=== PATIENT | female | born 1945 | race Caucasian/White ===

== ENCOUNTER 2022-03-26 19:04 | Inpatient (IN) | payer MEDICARE, MEDICAID, SELFPAY ==
--- NOTE | ~2022-03-26 | XR_ITS ---
EXAMINATION: XR HIP, RIGHT CLINICAL INFORMATION: Severe pain. History of injury COMPARISON: None TECHNIQUE: Two views of the right hip. AP view pelvis. FINDINGS: AP pelvis: There is normal symmetric bilateral hip joints and SI joints. No fracture involving the pelvis. The soft tissues are normal. AP and frog-leg views right hip reveal no visible acute fracture, dislocation or subluxation. No bony erosive changes. The soft tissues are normal. XR/XR hip RT w [id number] IMPRESSION: Unremarkable AP pelvis and right hip.
--- NOTE | ~2022-03-26 | XR_ITS ---
EXAMINATION: XR ANKLE, RIGHT CLINICAL INFORMATION: Complaint of severe pain. History of injury. COMPARISON: None TECHNIQUE: AP, lateral, and mortise views of the right ankle. FINDINGS: There has been previous fixation of a lateral malleolus fracture with a lateral plate and fixation screws. Screws appear to be in appropriate position, there is question small amount of lucency about the most caudal of the 2 fixation screws, however this could be artifactual. There are posttraumatic degenerative changes of the osseous structures and there is soft tissue calcification at the distal tibiofibular articulation. No acute fracture is identified in the structures of the ankle are in alignment. There is a small amount of soft tissue edema overlying the lateral malleolus. XR/XR ankle RT 2V IMPRESSION: Changes relating to surgical fixation of a lateral malleolus fracture with lateral fixation plate and screws. There is questionable small amount of lucency about the 2 most distal screws, uncertain if this is artifactual. Comparison radiographs are unavailable at this time. There is mild soft tissue edema overlying the lateral malleolus and there is no acute fracture identified.
[2022-03-26 20:00] VITALS: BP 150/75; PULSE 83; RESP 18; TEMP 36.1; O2SAT 94
[2022-03-26 20:22] VITALS: BMI 30.6
[2022-03-26 20:42] LABS: Glucose, Whole Blood 153 mg/dL (60-115)
[2022-03-26 22:01] LABS: Valproate 46.5 mcg/mL (50.0-100.0)
[2022-03-26] MEDS: Apixaban 5 MG TABLET PO (22:35)
[2022-03-26] MEDS: Atorvastatin Calcium 20 MG TABLET PO (22:35)
[2022-03-26] MEDS: Docusate Sodium 100 MG CAPSULE 200 MG PO (22:36)
[2022-03-26] MEDS: risperiDONE 2 MG TABLET 4 MG PO (22:36)
[2022-03-26] MEDS: Metoprolol Tartrate 50 MG TABLET PO (22:36)
[2022-03-26] MEDS: Magnesium Hydrox/Alum Hydrox 30 ML ORAL.SUSP PO (22:52)
[2022-03-26] MEDS: Divalproex Sodium Sprinkles 125 MG CAP.DR.SPR 250 MG PO (22:52)
[2022-03-26] MEDS: Perphenazine 8 MG TABLET 16 MG PO (22:52)
[2022-03-26] MEDS: cephALEXin 500 MG CAPSULE PO (23:03)
--- NOTE | 2022-03-27 01:45 | PC.ADMIT ---
76 year old female patient admitted to [facility] unit at 1945 from [facility]. Pt. referred by N. This is the patient's first admission here. Nurse to nurse done prior to admission. Pt. is a section 12B. VS 150/75, T97, 94% on RA, 83, 18. Blood sugar 153. Pt. alert to person, birthday, current year, but confused to time, date and situation. Pt. has a history of vascular dementia, NIDDM, hypothyroidism, GERD, hypertension, and atrial fibrillation. Psychiatric history includes bipolar disorder and schizophrenia. Pt. is being treated for a UTI currently with Keflex 500mg BID. Pt. does not report SI/HI/AH/VH. The pt. resided at [facility] where she was apparently exhibiting aggressive behavior toward other residents. She was transported from the facility to the ED. The pt. is not currently demonstrating any aggression or mood lability. She was calm and cooperative, but really unable to respond appropriately to admission assessment questions nor could she sign legals due to mental status. RN called patient's brother Galileo Cam at [phone] per patient request and left a voice mail with call back number to let him know pt. is here.
[2022-03-27] MEDS: Acetaminophen 325 MG TABLET 650 MG PO (03:33)
[2022-03-27 06:00] VITALS: BP 118/69; PULSE 87; RESP 16; TEMP 36.6; O2SAT 96
[2022-03-27] MEDS: Levothyroxine Sodium 125 MCG TABLET PO (06:11)
[2022-03-27 08:09] LABS: Glucose, Whole Blood 156 mg/dL (60-115)
[2022-03-27 08:33] LABS: Alanine Aminotransferase 13 U/L (0-31); Alkaline Phosphatase 70 U/L (39-117); Anion Gap 14 (12-20); Aspartate Amino Transferase 13 U/L (5-31); Bilirubin Direct 0.2 mg/dL (0.0-0.5); Bilirubin Total 0.5 mg/dL (0.0-1.0); Blood Urea Nitrogen 18 mg/dL (9-16); Calcium 9.6 mg/dL (8.4-10.2); Carbon Dioxide 24 mmol/L (22-29); Chloride 102 mmol/L (96-108); Cholesterol 133 mg/dL; Creatinine Clr Calc Pharmacy 72.3; Estimated Glomerular Filt Rate > 60; Glucose Fasting 130 mg/dL (60-99); HDL Cholesterol 37 mg/dL; LDL Cholesterol Calculated 71 mg/dl; Magnesium 1.9 mg/dL (1.6-2.6); Potassium 4.2 mmol/L (3.3-5.1); Sodium 136 mmol/L (135-145); Total Protein 6.8 g/dL (6.5-8.0); Triglycerides 126 mg/dL
[2022-03-27 08:37] LABS: Estimated Average Glucose 154 mg/dL
[2022-03-27] MEDS: risperiDONE 2 MG TABLET 4 MG PO ×2 (08:52→21:15)
[2022-03-27] MEDS: Cholecalciferol (Vitamin D3) 10 MCG TABLET PO (08:53)
[2022-03-27] MEDS: metFORMIN HCl 500 MG TABLET PO ×2 (08:53→17:07)
[2022-03-27] MEDS: Apixaban 5 MG TABLET PO ×2 (08:53→21:15)
[2022-03-27] MEDS: dilTIAZem HCL CD 120 MG CAP.ER.DEG PO (08:53)
[2022-03-27] MEDS: Fenofibrate 160 MG TABLET PO (08:53)
[2022-03-27] MEDS: Perphenazine 8 MG TABLET PO (08:53)
[2022-03-27] MEDS: Metoprolol Tartrate 50 MG TABLET PO ×2 (08:53→21:12)
[2022-03-27] MEDS: cephALEXin 500 MG CAPSULE PO ×2 (08:54→21:14)
[2022-03-27] MEDS: Divalproex Sodium Sprinkles 125 MG CAP.DR.SPR 250 MG PO ×2 (08:54→21:12)
[2022-03-27] MEDS: Digoxin 0.125 MG TABLET PO (08:54)
[2022-03-27 08:56] LABS: Free T4 (Free Thyroxine) 0.92 ng/dL (0.71-1.85); Thyroid Stimulating Hormone 3.74 uIU/mL (0.32-4.0)
--- NOTE | 2022-03-27 13:26 | P.HPPS_ITS ---
HPI Date of Service: 03/27/22 Chief Complaint: Schizoaffective Disorder Sources of Information: patient interviewed, chart reviewed and crisis/core team assessment reviewed HPI Subjective Notes: Jovi Hooker Order (need to obtain copy) and Conditional Voluntary Narrative: Ms. Pollock is a 76 year-old woman with hx of schizoaffective disorder who was brought to [facility] from [facility] where she resides as pt presenting as increasingly more agressive towards staff and peers. Utox negative. On the unit, pt presents as dysphoric, periods of smiling, to crying and yelling. When asked about incident at SNF, pt reports she does not want to talk about it. Pt later reports as she yells at this tag writer that people there were trying to touch my breast! Pt crying reports she would not return there. She reports she wants to go to [facility]. She reports feeling anxious. She reports she does not know if she belongs here referring to feeling anxious on this unit but also reports feeling safe. She is not sure about her psychiatric medications. Pt denies SI/HI. She also denies VH/AH, but internally preoccupied. Past Psychiatric History: Inpatient: OP: Kathy De La Cruz NP Suicide attempts: none Past medication trials: perphenazine, risperidone. Medical Evaluation Reviewed: Yes CBC- wnl, CMP wnl slight elevation of BUN 19, eGFR>60 Hx of GERD, afib on eliquis, HTN, hypothyroidism, DM. [facility] Medical History (Updated 03/28/22 @ 16:13 by Neal Escobedo MD) Atrial fibrillation History of uterine fibroid Hypertension Schizoaffective disorder Type 2 diabetes mellitus Surgical History (Updated 03/28/22 @ 16:09 by Neal Escobedo MD) Hx of myomectomy Family History: unknown Social History: Lives in nursing facility. No children, not . She reports she has BA in [employer]. 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 Substance History: none Trauma History: not discussed Diagnostics Vital Signs (24Hr): Vital Signs - 24 hr 03/26/22 20:00 03/27/22 06:00 Temperature 97 F 97.9 F Pulse Rate 83 87 Respiratory Rate 18 16 Blood Pressure 150/75 H 118/69 Pulse Oximetry 94 96 Oxygen Delivery Method Room Air Room Air BMI result Body Mass Index 30.6 Labs Results: 04/01/22 09:38 04/08/22 07:45 Labs: Laboratory Results - last 48 hr 03/26/22 03/26/22 03/27/22 20:38 20:58 07:21 Sodium 136 Potassium 4.2 Chloride 102 Carbon Dioxide 24 Anion Gap 14 BUN 18 H Creatinine 0.77 Estim Creat Clear Calc 72.3 Estimated GFR > 60 POC Glucose 153 H Fasting Glucose 130 H Estimat Average Glucose Hemoglobin A1c % Calcium 9.6 Magnesium 1.9 Total Bilirubin 0.5 Direct Bilirubin 0.2 AST 13 ALT 13 Alkaline Phosphatase 70 Total Protein 6.8 Albumin 4.0 Triglycerides 126 Cholesterol 133 LDL Cholesterol, Calc 71 HDL Cholesterol 37 TSH 3.74 Free T4 0.92 Valproic Acid 46.5 L 03/27/22 03/27/22 07:21 08:03 Sodium Potassium Chloride Carbon Dioxide Anion Gap BUN Creatinine Estim Creat Clear Calc Estimated GFR POC Glucose 156 H Fasting Glucose Estimat Average Glucose 154 Hemoglobin A1c % 7.0 Calcium Magnesium Total Bilirubin Direct Bilirubin AST ALT Alkaline Phosphatase Total Protein Albumin Triglycerides Cholesterol LDL Cholesterol, Calc HDL Cholesterol TSH Free T4 Valproic Acid Meds/Allergies Meds Home Medications Medication Instructions Recorded Confirmed Type apixaban 5 mg tablet 5 mg PO BID 03/26/22 03/26/22 History atorvastatin 20 mg tablet 20 mg PO BEDTIME 03/26/22 03/26/22 History digoxin 125 mcg (0.125 mg) tablet 125 mcg PO DAILY 03/26/22 03/26/22 History diltiazem HCl 120 mg capsule,24 120 mg PO DAILY 03/26/22 03/26/22 History hr,extended release docusate sodium 100 mg capsule 200 mg PO BEDTIME 03/26/22 03/26/22 History fenofibrate nanocrystallized 145 145 mg PO DAILY 03/26/22 03/26/22 History mg tablet (Tricor) metoprolol tartrate 50 mg tablet 50 mg PO BID 03/26/22 03/26/22 History perphenazine 4 mg tablet 20 mg PO BEDTIME 03/26/22 03/26/22 History perphenazine 8 mg tablet 24 mg PO DAILY 03/26/22 03/26/22 History risperidone 2 mg tablet 6 mg PO DAILY 03/26/22 03/26/22 History risperidone 4 mg tablet 4 mg PO BEDTIME 03/26/22 03/26/22 History sennosides 8.6 mg-docusate sodium 1 tab-cap PO BEDTIME PRN 03/26/22 03/26/22 History 50 mg tablet Constipation tramadol 50 mg tablet 50 mg PO BEDTIME 03/26/22 03/26/22 History tramadol 50 mg tablet 50 mg PO Q8H PRN Pain 03/26/22 03/26/22 History Allergies Allergies Allergy/AdvReac Type Severity Reaction Status Date / Time aspirin Allergy Unknown Verified 03/26/22 20:21 ciprofloxacin [From Cipro] Allergy Gastrointestinal Verified 03/26/22 20:21 Upset ibuprofen Allergy Unknown Verified 03/26/22 20:21 Latex, Natural Rubber Allergy Hives Verified 03/26/22 20:21 NSAIDS (Non-Steroidal Allergy Unknown Verified 03/26/22 20:21 Anti-Inflamma omeprazole [From Prilosec] Allergy Unknown Verified 03/26/22 20:22 ondansetron [From Zofran] Allergy Unknown Verified 03/26/22 20:22 Penicillins Allergy Unknown Verified 03/26/22 20:21 Sulfa (Sulfonamide Allergy Gastrointestinal Verified 03/26/22 20:21 Antibiotics) Upset Mental Status Exam Mental Status Exam Narrative: Appearance: crying a times, pacing, casually groomed, poor hygiene in NAD Behavior:guarded at times psychomotor:agitation noted Speech:mumbles at times, varying rate of response, changing tones of voice and volume, spontaneous Thought process:mostly tangential, at times some loose associations Thought content:not feeling safe at senior care, feeling anxious wanting new placement Mood: anxious Affect: dysphoric/labile SI:denies HI:denies VH/AH:denies but appears internally preoccupied Delusions:paranoid delusions Insight/judgment:poor x 2. Memory/cog: alert, oriented x 3. suspect underlying cognitive impairments but not formally tested. Assessment & Plan Assessment & Plan (1) Schizoaffective disorder, bipolar type: Status: Acute Code(s): F25.0 - Schizoaffective disorder, bipolar type Plan Ms. Pollock is a 76 year-old woman with hx of schizoaffective disorder brought from [facility] to [facility] due to increase agitation, aggression towards staff there which appears to be prompted by underlying paranoia. Pt presents as dysphoric, labile, anxious. We discussed risks, benefits and alternative treatment options. More collateral information from her OP providers may be required. Pt currently on 2 antipsychotics, perphenazine and risperidone. Depakote was added while in ED- currently 250mg po TID- will check levels. Added clonazepam for anxiety. Pt has eaton- please obtain copy PLAN 1. Admit to S1, CV, 15 minutes checks for safety 2. continue current medications, clonazepam added, 3. OBtain collateral information 4. Aftercare planning. Patient educated on: diagnosis and medication risk/benefits Informed Consent: understands Reason for continued inpatient stay Substantial Risk for: harm to others and inability to function
[2022-03-27] MEDS: clonazePAM 0.5 MG TABLET PO ×2 (15:27→21:14)
[2022-03-27] MEDS: Perphenazine 8 MG TABLET 16 MG PO (21:13)
[2022-03-27] MEDS: Docusate Sodium 100 MG CAPSULE 200 MG PO (21:14)
[2022-03-27] MEDS: Atorvastatin Calcium 20 MG TABLET PO (21:15)
[2022-03-27 21:19] VITALS: BP 140/59; PULSE 88; RESP 18; TEMP 37.1; O2SAT 94
[2022-03-27] MEDS: Artificial Tears 15 ML DROPS 1 DROP EYE-BOTH (21:19)
[2022-03-27 22:00] LABS: Glucose, Whole Blood 145 mg/dL (60-115)
[2022-03-28] MEDS: Acetaminophen 325 MG TABLET 650 MG PO ×2 (02:06→20:43)
[2022-03-28] MEDS: Magnesium Hydrox/Alum Hydrox 30 ML ORAL.SUSP PO (02:06)
[2022-03-28] MEDS: Levothyroxine Sodium 125 MCG TABLET PO (06:22)
[2022-03-28 08:00] VITALS: BP 122/58; PULSE 98; RESP 16; TEMP 36.1; O2SAT 92
[2022-03-28 08:14] LABS: Ammonia 74 umol/L (13-55)
[2022-03-28] MEDS: metFORMIN HCl 500 MG TABLET PO ×2 (08:17→16:40)
[2022-03-28] MEDS: dilTIAZem HCL CD 120 MG CAP.ER.DEG PO (08:38)
[2022-03-28] MEDS: risperiDONE 2 MG TABLET 4 MG PO ×2 (08:38→20:30)
[2022-03-28] MEDS: clonazePAM 0.5 MG TABLET PO ×2 (08:39→20:28)
[2022-03-28] MEDS: Apixaban 5 MG TABLET PO ×2 (08:39→20:28)
[2022-03-28] MEDS: Metoprolol Tartrate 50 MG TABLET PO ×2 (08:40→20:29)
[2022-03-28] MEDS: cephALEXin 500 MG CAPSULE PO ×2 (08:40→20:30)
[2022-03-28] MEDS: Divalproex Sodium Sprinkles 125 MG CAP.DR.SPR 250 MG PO ×2 (08:40→20:28)
[2022-03-28] MEDS: Fenofibrate 160 MG TABLET PO (08:41)
[2022-03-28] MEDS: Digoxin 0.125 MG TABLET PO (08:41)
[2022-03-28] MEDS: Cholecalciferol (Vitamin D3) 10 MCG TABLET PO (08:41)
[2022-03-28] MEDS: Perphenazine 8 MG TABLET PO (08:41)
[2022-03-28 08:47] VITALS: PULSE 79
[2022-03-28 09:15] LABS: Valproate 36.6 mcg/mL (50.0-100.0)
[2022-03-28 10:05] LABS: Vitamin B12 530 pg/mL (200-900)
--- NOTE | 2022-03-28 14:59 | P.PNPSI_ITS ---
Subjective Subjective Date of Service: 03/28/22 Reason For Visit: Schizoaffective Disorder Subjective Notes: Conditional Voluntary Interim History: the nursing staff reported the patient has been compliant with treatment. Apparently she spent 6 days in the emergency room and he show regressive behavior. On interview the patient was sleeping pleasantly on her bed. She denies new symptoms she looks pleasantly confused and easily redirectable. We will try to gather more collateral information Mental Status Exam Mental Status Exam Patient Appearance: Appropriate Patient Orientation: Person Level of Consciousness: Awake Patient Behavior: Guarded and Passive Mood Description: Withdrawn Affect Description: Constricted and Labile Patient Cognition Impaired: Yes Ability to Follow Directions: Fair Speech Pattern: Clear Hallucinations: Auditory Delusions: Paranoid Ideation Thought Process: Illogical Thought Content: positive for [place] and positive for Poverty of Content Judgement: Fair Diagnostics Vital Signs (24Hr): Vital Signs - 24 hr 03/27/22 21:19 03/28/22 08:00 03/28/22 08:47 Temperature 98.8 F 96.9 F Pulse Rate 88 98 79 Respiratory Rate 18 16 Blood Pressure 140/59 H 122/58 L Pulse Oximetry 94 92 Oxygen Delivery Method Room Air Room Air BMI result Body Mass Index 30.6 Labs Results: 03/27/22 07:21 Labs: Laboratory Results - last 48 hr 03/26/22 03/26/22 03/27/22 20:38 20:58 07:21 Sodium 136 Potassium 4.2 Chloride 102 Carbon Dioxide 24 Anion Gap 14 BUN 18 H Creatinine 0.77 Estim Creat Clear Calc 72.3 Estimated GFR > 60 POC Glucose 153 H Fasting Glucose 130 H Estimat Average Glucose Hemoglobin A1c % Calcium 9.6 Magnesium 1.9 Total Bilirubin 0.5 Direct Bilirubin 0.2 AST 13 ALT 13 Alkaline Phosphatase 70 Ammonia Total Protein 6.8 Albumin 4.0 Triglycerides 126 Cholesterol 133 LDL Cholesterol, Calc 71 HDL Cholesterol 37 Vitamin B12 Folate TSH 3.74 Free T4 0.92 Valproic Acid 46.5 L 03/27/22 03/27/22 03/27/22 07:21 07:21 08:03 Sodium Potassium Chloride Carbon Dioxide Anion Gap BUN Creatinine Estim Creat Clear Calc Estimated GFR POC Glucose 156 H Fasting Glucose Estimat Average Glucose 154 Hemoglobin A1c % 7.0 Calcium Magnesium Total Bilirubin Direct Bilirubin AST ALT Alkaline Phosphatase Ammonia Total Protein Albumin Triglycerides Cholesterol LDL Cholesterol, Calc HDL Cholesterol Vitamin B12 530 Folate 12.0 TSH Free T4 Valproic Acid 06/12/22 06/13/22 06/13/22 21:10 07:56 07:56 Sodium Potassium Chloride Carbon Dioxide Anion Gap BUN Creatinine Estim Creat Clear Calc Estimated GFR POC Glucose 145 H Fasting Glucose Estimat Average Glucose Hemoglobin A1c % Calcium Magnesium Total Bilirubin Direct Bilirubin AST ALT Alkaline Phosphatase Ammonia 74 H Total Protein Albumin Triglycerides Cholesterol LDL Cholesterol, Calc HDL Cholesterol Vitamin B12 Folate TSH Free T4 Valproic Acid 36.6 L Medications Medications Current Medications Acetaminophen (Acetaminophen 325 Mg Tablet) 650 mg PO Q6H PRN PRN Reason: Headache/Pain Mild Scale (1-3) Last Admin: 03/28/22 02:06 Dose: 650 mg Al Hydroxide/Mg Hydroxide (Magnesium Hydrox/Alum Hydrox 30 Ml Oral.Susp) 30 ml PO Q6H PRN PRN Reason: Heartburn/Nausea Last Admin: 03/28/22 02:06 Dose: 30 ml Apixaban (Apixaban 5 Mg Tablet) 5 mg PO BID [facility] Last Admin: 03/28/22 08:39 Dose: 5 mg Artificial Tears (Artificial Tears 15 Ml Drops) 1 drop EYE-BOTH Q4H PRN PRN Reason: Dry Eyes Last Admin: 03/27/22 21:19 Dose: 1 drop Atorvastatin Calcium (Atorvastatin Calcium 20 Mg Tablet) 20 mg PO BEDTIME [facility] Last Admin: 03/27/22 21:15 Dose: 20 mg Bisacodyl (Bisacodyl 10 Mg Supp.Rect) 10 mg AR DAILY PRN PRN Reason: Constipation Bismuth Subsalicylate (Bismuth Subsalicylate 262 Mg Tablet) 524 mg PO QID PRN PRN Reason: Indigestion Cephalexin HCl (Cephalexin 500 Mg Capsule) 500 mg PO Q12H [facility] Last Admin: 03/28/22 08:40 Dose: 500 mg Clonazepam (Clonazepam 0.5 Mg Tablet) 0.5 mg PO BID [facility] Last Admin: 03/28/22 08:39 Dose: 0.5 mg Digoxin (Digoxin 0.125 Mg Tablet) 0.125 mg PO DAILY [facility] Last Admin: 03/28/22 08:41 Dose: 0.125 mg Diltiazem HCl (Diltiazem Hcl Cd 120 Mg Cap.Er.Deg) 120 mg PO DAILY [facility]; Protocol Last Admin: 03/28/22 08:38 Dose: 120 mg Divalproex Sodium (Divalproex Sodium Sprinkles 125 Mg ) 250 mg PO BID [facility] Last Admin: 03/28/22 08:40 Dose: 250 mg Docusate Sodium (Docusate Sodium 100 Mg Capsule) 200 mg PO BEDTIME [facility] Last Admin: 03/27/22 21:14 Dose: 200 mg Fenofibrate (Fenofibrate 160 Mg Tablet) 160 mg PO DAILY [facility] Last Admin: 03/28/22 08:41 Dose: 160 mg Levothyroxine Sodium (Levothyroxine Sodium 125 Mcg Tablet) 125 mcg PO DAILY@0600 [facility] Last Admin: 03/28/22 06:22 Dose: 125 mcg Magnesium Hydroxide (Milk Of Magnesia 30 Ml Oral.Susp) 30 ml PO DAILY PRN PRN Reason: Constipation Metformin HCl (Metformin Hcl 500 Mg Tablet) 500 mg PO BIDWM [facility] Last Admin: 03/28/22 08:17 Dose: 500 mg Metoprolol Tartrate (Metoprolol Tartrate 50 Mg Tablet) 50 mg PO BID [facility]; Protocol Last Admin: 03/28/22 08:40 Dose: 50 mg Perphenazine (Perphenazine 8 Mg Tablet) 8 mg PO DAILY [facility] Last Admin: 03/28/22 08:41 Dose: 8 mg Perphenazine (Perphenazine 8 Mg Tablet) 16 mg PO BEDTIME [facility] Last Admin: 03/27/22 21:13 Dose: 16 mg Risperidone (Risperidone 2 Mg Tablet) 4 mg PO BID [facility] Last Admin: 03/28/22 08:38 Dose: 4 mg Senna/Docusate Sodium (Sennosides/Docusate Sodium Tablet) 1 tab PO BEDTIME PRN PRN Reason: Constipation Trazodone HCl (Trazodone Hcl 50 Mg Tablet) 50 mg PO BEDTIME PRN PRN Reason: Insomnia Vitamin D (Cholecalciferol (Vitamin D3) 10 Mcg Tablet) 10 mcg PO DAILY [facility] Last Admin: 03/28/22 08:41 Dose: 10 mcg Allergies Allergies Allergy/AdvReac Type Severity Reaction Status Date / Time aspirin Allergy Unknown Verified 03/26/22 20:21 ciprofloxacin [From Cipro] Allergy Gastrointestinal Verified 03/26/22 20:21 Upset ibuprofen Allergy Unknown Verified 03/26/22 20:21 Latex, Natural Rubber Allergy Hives Verified 03/26/22 20:21 NSAIDS (Non-Steroidal Allergy Unknown Verified 03/26/22 20:21 Anti-Inflamma omeprazole [From Prilosec] Allergy Unknown Verified 03/26/22 20:22 ondansetron [From Zofran] Allergy Unknown Verified 03/26/22 20:22 Penicillins Allergy Unknown Verified 03/26/22 20:21 Sulfa (Sulfonamide Allergy Gastrointestinal Verified 03/26/22 20:21 Antibiotics) Upset Assessment & Plan Assessment & Plan (1) Schizoaffective disorder, bipolar type: Status: Acute Code(s): F25.0 - Schizoaffective disorder, bipolar type Plan Ms. Pollock is a 76 year-old woman with hx of schizoaffective disorder [facility] due to increase agitation, aggression towards staff there which appears to be prompted by underlying paranoia. Pt presents as dysphoric, labile, anxious. We discussed risks, benefits and alternative treatment options. More collateral information from her OP providers may be required. Pt currently on 2 antipsychotics, perphenazine and risperidone. Depakote was added while in ED- currently 250mg po TID- will check levels. Added clonazepam for anxiety. Pt has eaton- please obtain copy PLAN 1. Admit to S1, CV, 15 minutes checks for safety 2. continue current medications, clonazepam added, 3. OBtain collateral information 4. Aftercare planning. I spent __20____ minutes with the patient and/or on the patient floor today, gr eater than?50% of which was spent counseling/coordinating care. Reason for contiued inpatient stay Substantial Risk for: inability to function, rapid decompensation and med/psych decompensation
--- NOTE | 2022-03-28 16:08 | P.CNHOSGPS_ITS ---
History of Present Illness Data of Consult Service Date: 03/28/22 Requesting physician: [facility] Psychiatry Primary Care Provider: Nonstaff Physician HPI Reason for consult: medical H+P 84yo F transferred from [facility] in [place] to [facility] Geriatric Psychiatry. Inpatient hospitalization due to behavioral issues. She is a long- term resident of a memory care unit at a SNF. Medical history significant for AF for which she takes apixaban, digoxin, metoprolol, and diltiazem; HLD, for w hich she takes atorvastatin and fenofibrate; and DM2 not on medications, with A1c of 7. She currently denies fever, chills, dyspnea, cough, chest pain, palpitations, dizziness, or abdominal pain. Review of Systems Review of Systems: Yes all other systems are reviewed and are negative [facility] Medical History (Updated 03/28/22 @ 16:13 by Neal Escobedo MD) Atrial fibrillation History of uterine fibroid Hypertension Schizoaffective disorder Type 2 diabetes mellitus Family History (Updated 03/28/22 @ 16:10 by Neal Escobedo MD) Father Heart attack Surgical History (Updated 03/28/22 @ 16:09 by Neal Escobedo MD) Hx of myomectomy Social History Household Members: Other Household Members Other:: Pt. lives in a retirement. Housing: Residential Do you presently have visiting nurse or other home services: No Unable to assess alcohol history related to: Unknown Patient Tobacco Use Status: Tobacco use Unknown Use of substances other than those prescribed or required for medical reasons: Unknown Currently Displaying Signs/Symptoms of Drug Intoxication Withdrawal: No Spiritual Healthcare Practices: No Cheondoism Healthcare Practices: No Cultural Healthcare Practices: No Advance Directives: No Advance Directives Information Provided: No (declined) Advance Directives on File: No Do you have thoughts of harming others: None Do you have a plan to hurt others: No Plan Recently lost weight without trying: No How much weight loss: Not applicable Nutrition Risks: Dental problems Patient : No : No Poor oral hygiene: No service: No Sexual orientation: Straight/Heterosexual Meds Allergies Allergy/AdvReac Type Severity Reaction Status Date / Time aspirin Allergy Unknown Verified 03/26/22 20:21 ciprofloxacin [From Cipro] Allergy Gastrointestinal Verified 03/26/22 20:21 Upset ibuprofen Allergy Unknown Verified 03/26/22 20:21 Latex, Natural Rubber Allergy Hives Verified 03/26/22 20:21 NSAIDS (Non-Steroidal Allergy Unknown Verified 03/26/22 20:21 Anti-Inflamma omeprazole [From Prilosec] Allergy Unknown Verified 03/26/22 20:22 ondansetron [From Zofran] Allergy Unknown Verified 03/26/22 20:22 Penicillins Allergy Unknown Verified 03/26/22 20:21 Sulfa (Sulfonamide Allergy Gastrointestinal Verified 03/26/22 20:21 Antibiotics) Upset Active Medications: Current Medications Acetaminophen (Acetaminophen 325 Mg Tablet) 650 mg PO Q6H PRN PRN Reason: Headache/Pain Mild Scale (1-3) Last Admin: 03/28/22 02:06 Dose: 650 mg Al Hydroxide/Mg Hydroxide (Magnesium Hydrox/Alum Hydrox 30 Ml Oral.Susp) 30 ml PO Q6H PRN PRN Reason: Heartburn/Nausea Last Admin: 03/28/22 02:06 Dose: 30 ml Apixaban (Apixaban 5 Mg Tablet) 5 mg PO BID [facility] Last Admin: 03/28/22 08:39 Dose: 5 mg Artificial Tears (Artificial Tears 15 Ml Drops) 1 drop EYE-BOTH Q4H PRN PRN Reason: Dry Eyes Last Admin: 03/27/22 21:19 Dose: 1 drop Atorvastatin Calcium (Atorvastatin Calcium 20 Mg Tablet) 20 mg PO BEDTIME [facility] Last Admin: 03/27/22 21:15 Dose: 20 mg Bisacodyl (Bisacodyl 10 Mg Supp.Rect) 10 mg [place] DAILY PRN PRN Reason: Constipation Bismuth Subsalicylate (Bismuth Subsalicylate 262 Mg Tablet) 524 mg PO QID PRN PRN Reason: Indigestion Cephalexin HCl (Cephalexin 500 Mg Capsule) 500 mg PO Q12H [facility] Last Admin: 03/28/22 08:40 Dose: 500 mg Clonazepam (Clonazepam 0.5 Mg Tablet) 0.5 mg PO BID [facility] Last Admin: 03/28/22 08:39 Dose: 0.5 mg Digoxin (Digoxin 0.125 Mg Tablet) 0.125 mg PO DAILY [facility] Last Admin: 03/28/22 08:41 Dose: 0.125 mg Diltiazem HCl (Diltiazem Hcl Cd 120 Mg Cap.Er.Deg) 120 mg PO DAILY [facility]; Protocol Last Admin: 03/28/22 08:38 Dose: 120 mg Divalproex Sodium (Divalproex Sodium Sprinkles 125 Mg ) 250 mg PO BID [facility] Last Admin: 03/28/22 08:40 Dose: 250 mg Docusate Sodium (Docusate Sodium 100 Mg Capsule) 200 mg PO BEDTIME [facility] Last Admin: 03/27/22 21:14 Dose: 200 mg Fenofibrate (Fenofibrate 160 Mg Tablet) 160 mg PO DAILY [facility] Last Admin: 03/28/22 08:41 Dose: 160 mg Levothyroxine Sodium (Levothyroxine Sodium 125 Mcg Tablet) 125 mcg PO DAILY@0600 [facility] Last Admin: 03/28/22 06:22 Dose: 125 mcg Magnesium Hydroxide (Milk Of Magnesia 30 Ml Oral.Susp) 30 ml PO DAILY PRN PRN Reason: Constipation Metformin HCl (Metformin Hcl 500 Mg Tablet) 500 mg PO BIDWM [facility] Last Admin: 03/28/22 08:17 Dose: 500 mg Metoprolol Tartrate (Metoprolol Tartrate 50 Mg Tablet) 50 mg PO BID [facility]; Protocol Last Admin: 03/28/22 08:40 Dose: 50 mg Perphenazine (Perphenazine 8 Mg Tablet) 8 mg PO DAILY [facility] Last Admin: 03/28/22 08:41 Dose: 8 mg Perphenazine (Perphenazine 8 Mg Tablet) 16 mg PO BEDTIME [facility] Last Admin: 03/27/22 21:13 Dose: 16 mg Risperidone (Risperidone 2 Mg Tablet) 4 mg PO BID [facility] Last Admin: 03/28/22 08:38 Dose: 4 mg Senna/Docusate Sodium (Sennosides/Docusate Sodium Tablet) 1 tab PO BEDTIME PRN PRN Reason: Constipation Trazodone HCl (Trazodone Hcl 50 Mg Tablet) 50 mg PO BEDTIME PRN PRN Reason: Insomnia Vitamin D (Cholecalciferol (Vitamin D3) 10 Mcg Tablet) 10 mcg PO DAILY [facility] Last Admin: 03/28/22 08:41 Dose: 10 mcg Home Medications Medication Instructions Recorded Confirmed Last Taken Type apixaban 5 mg tablet 5 mg PO BID 03/26/22 03/26/22 Unknown History atorvastatin 20 mg tablet 20 mg PO BEDTIME 03/26/22 03/26/22 Unknown History digoxin 125 mcg (0.125 mg) tablet 125 mcg PO DAILY 03/26/22 03/26/22 Unknown History diltiazem HCl 120 mg capsule,24 120 mg PO DAILY 03/26/22 03/26/22 Unknown History hr,extended release docusate sodium 100 mg capsule 200 mg PO BEDTIME 03/26/22 03/26/22 Unknown History fenofibrate nanocrystallized 145 145 mg PO DAILY 03/26/22 03/26/22 Unknown History mg tablet (Tricor) metoprolol tartrate 50 mg tablet 50 mg PO BID 03/26/22 03/26/22 Unknown History perphenazine 4 mg tablet 20 mg PO BEDTIME 03/26/22 03/26/22 Unknown History perphenazine 8 mg tablet 24 mg PO DAILY 03/26/22 03/26/22 Unknown History risperidone 2 mg tablet 6 mg PO DAILY 03/26/22 03/26/22 Unknown History risperidone 4 mg tablet 4 mg PO BEDTIME 03/26/22 03/26/22 Unknown History sennosides 8.6 mg-docusate sodium 1 tab-cap PO BEDTIME PRN 03/26/22 03/26/22 Unknown History 50 mg tablet Constipation tramadol 50 mg tablet 50 mg PO BEDTIME 03/26/22 03/26/22 Unknown History tramadol 50 mg tablet 50 mg PO Q8H PRN Pain 03/26/22 03/26/22 Unknown History Results Labs CBC and Chem 7: 03/27/22 07:21 Labs: Laboratory Results - last 24 hr 03/27/22 03/27/22 03/28/22 07:21 21:10 07:56 POC Glucose 145 H Ammonia Vitamin B12 530 Folate 12.0 Valproic Acid 36.6 L 03/28/22 07:56 POC Glucose Ammonia 74 H Vitamin B12 Folate Valproic Acid Assessment and Plan (1) Schizoaffective disorder, bipolar type: Status: Acute (2) Atrial fibrillation: Status: Acute Plan 84yo F transferred to geriatric psychiatry unit from outside hospital; long-term SNF resident in memory care unit; admitted due to behavioral issues; hospitalist consult for medical H+P. # AF - continue apixaban for AC - continue digoxin, metoprolol + diltiazem for rate control # HLD - continue statin + fenofibrate # DM2 - diet-controlled, A1c 7 # mood disorder - perphenazine + valproate + risperidone + clonazepam as per psychiatry team # VTE ppx - on apixaban Thank you for this consultation. We are signing off the case at this time. Please communicate with us if any new medical questions arise. Physical Exam Vital Signs: Last Vital Signs Temp 96.9 F 03/28/22 08:00 Pulse 79 03/28/22 08:47 Resp 16 03/28/22 08:00 BP 122/58 L 03/28/22 08:00 Pulse Ox 92 03/28/22 08:00 O2 Del Method 03/28/22 08:00 BMI result Body Mass Index 30.6 Gen: in no acute distress HEENT: sclera anicteric, moist mucus membranes Neck: supple Lungs: clear to auscultation bilaterally Heart: regular rate and rhythm, no murmurs Abd: soft, non-tender, non-distended Ext: no edema Skin: warm/well-perfused Neuro: alert and oriented to self/place/year/month but not date Psych: restricted affect Neuro Cranial nerves: Yes CN's II-XII intact bilaterally
[2022-03-28 16:46] LABS: Glucose, Whole Blood 113 mg/dL (60-115)
[2022-03-28 18:00] VITALS: BP 128/62; PULSE 89; RESP 17; TEMP 36.1; O2SAT 92
[2022-03-28] MEDS: Atorvastatin Calcium 20 MG TABLET PO (20:28)
[2022-03-28] MEDS: Docusate Sodium 100 MG CAPSULE 200 MG PO (20:29)
[2022-03-28] MEDS: Perphenazine 8 MG TABLET 16 MG PO (20:29)
[2022-03-28 21:24] LABS: Glucose, Whole Blood 136 mg/dL (60-115)
[2022-03-29] MEDS: traZODone HCL 50 MG TABLET PO (01:49)
[2022-03-29] MEDS: Acetaminophen 325 MG TABLET 650 MG PO ×2 (04:14→11:14)
[2022-03-29] MEDS: Levothyroxine Sodium 125 MCG TABLET PO (05:30)
[2022-03-29 07:40] VITALS: BP 106/53; PULSE 80; RESP 17; TEMP 36.4; O2SAT 93
[2022-03-29 07:42] LABS: Glucose, Whole Blood 134 mg/dL (60-115)
[2022-03-29] MEDS: metFORMIN HCl 500 MG TABLET PO ×2 (08:04→16:21)
[2022-03-29] MEDS: Apixaban 5 MG TABLET PO ×2 (08:04→21:27)
[2022-03-29] MEDS: Metoprolol Tartrate 50 MG TABLET PO ×2 (08:05→21:27)
[2022-03-29] MEDS: Divalproex Sodium Sprinkles 125 MG CAP.DR.SPR 250 MG PO ×2 (08:05→21:27)
[2022-03-29] MEDS: Cholecalciferol (Vitamin D3) 10 MCG TABLET PO (08:06)
[2022-03-29] MEDS: clonazePAM 0.5 MG TABLET PO ×2 (08:06→21:27)
[2022-03-29] MEDS: Fenofibrate 160 MG TABLET PO (08:06)
[2022-03-29] MEDS: Perphenazine 8 MG TABLET PO (08:07)
[2022-03-29] MEDS: dilTIAZem HCL CD 120 MG CAP.ER.DEG PO (08:07)
[2022-03-29] MEDS: Digoxin 0.125 MG TABLET PO (08:08)
[2022-03-29] MEDS: cephALEXin 500 MG CAPSULE PO ×2 (08:08→21:27)
[2022-03-29] MEDS: risperiDONE 2 MG TABLET 4 MG PO ×2 (08:11→21:27)
[2022-03-29 08:16] VITALS: PULSE 91
--- NOTE | 2022-03-29 11:20 | PC.NURSE ---
Pt questioned re: smoking hx and states she has not smoked in 20 years. No need for nicotine replacement.
--- NOTE | 2022-03-29 16:02 | P.PNPSI_ITS ---
Subjective Subjective Date of Service: 03/29/22 Reason For Visit: Schizoaffective Disorder Subjective Notes: Conditional Voluntary Interim History: the patient slept poorly last night on and off. The staff has noticed that she has lab in mode with episodes of crying and also she complain of back pain. She had an ammonia level that was slightly high. On interview the patient denies new symptoms she signed her conditional voluntary admission. Mental Status Exam Mental Status Exam Patient Appearance: Appropriate Patient Orientation: Person Level of Consciousness: Awake Patient Behavior: Passive Mood Description: Labile Affect Description: Constricted Patient Cognition Impaired: Yes Ability to Follow Directions: Fair Speech Pattern: Clear Hallucinations: None Delusions: Paranoid Ideation Thought Process: Illogical and Distracted Thought Content: positive for [place] of Content Judgement: Poor Diagnostics Vital Signs (24Hr): Vital Signs - 24 hr 03/28/22 18:00 03/29/22 08:16 03/29/22 07:40 Temperature 97 F 97.6 F Pulse Rate 89 91 80 Respiratory Rate 17 17 Blood Pressure 128/62 106/53 L Pulse Oximetry 92 93 Oxygen Delivery Method Room Air Room Air BMI result Body Mass Index 30.6 Labs Results: 03/27/22 07:21 Labs: Laboratory Results - last 48 hr 03/27/22 03/27/22 03/28/22 07:21 21:10 07:42 POC Glucose 145 H 113 Ammonia Vitamin B12 530 Folate 12.0 Valproic Acid 03/28/22 03/28/22 03/28/22 07:56 07:56 21:09 POC Glucose 136 H Ammonia 74 H Vitamin B12 Folate Valproic Acid 36.6 L 03/29/22 07:34 POC Glucose 134 H Ammonia Vitamin B12 Folate Valproic Acid Medications Medications Current Medications Acetaminophen (Acetaminophen 325 Mg Tablet) 650 mg PO Q6H PRN PRN Reason: Headache/Pain Mild Scale (1-3) Last Admin: 03/29/22 11:14 Dose: 650 mg Al Hydroxide/Mg Hydroxide (Magnesium Hydrox/Alum Hydrox 30 Ml Oral.Susp) 30 ml PO Q6H PRN PRN Reason: Heartburn/Nausea Last Admin: 03/28/22 02:06 Dose: 30 ml Apixaban (Apixaban 5 Mg Tablet) 5 mg PO BID [facility] Last Admin: 03/29/22 08:04 Dose: 5 mg Artificial Tears (Artificial Tears 15 Ml Drops) 1 drop EYE-BOTH Q4H PRN PRN Reason: Dry Eyes Last Admin: 03/27/22 21:19 Dose: 1 drop Atorvastatin Calcium (Atorvastatin Calcium 20 Mg Tablet) 20 mg PO BEDTIME [facility] Last Admin: 03/28/22 20:28 Dose: 20 mg Bisacodyl (Bisacodyl 10 Mg Supp.Rect) 10 mg [place] DAILY PRN PRN Reason: Constipation Bismuth Subsalicylate (Bismuth Subsalicylate 262 Mg Tablet) 524 mg PO QID PRN PRN Reason: Indigestion Cephalexin HCl (Cephalexin 500 Mg Capsule) 500 mg PO Q12H [facility] Last Admin: 03/29/22 08:08 Dose: 500 mg Clonazepam (Clonazepam 0.5 Mg Tablet) 0.5 mg PO BID [facility] Last Admin: 03/29/22 08:06 Dose: 0.5 mg Digoxin (Digoxin 0.125 Mg Tablet) 0.125 mg PO DAILY [facility] Last Admin: 03/29/22 08:08 Dose: 0.125 mg Diltiazem HCl (Diltiazem Hcl Cd 120 Mg Cap.Er.Deg) 120 mg PO DAILY [facility]; Protocol Last Admin: 03/29/22 08:07 Dose: 120 mg Docusate Sodium (Docusate Sodium 100 Mg Capsule) 200 mg PO BEDTIME [facility] Last Admin: 03/28/22 20:29 Dose: 200 mg Fenofibrate (Fenofibrate 160 Mg Tablet) 160 mg PO DAILY [facility] Last Admin: 03/29/22 08:06 Dose: 160 mg Levothyroxine Sodium (Levothyroxine Sodium 125 Mcg Tablet) 125 mcg PO DAILY@0 600 [facility] Last Admin: 03/29/22 05:30 Dose: 125 mcg Magnesium Hydroxide (Milk Of Magnesia 30 Ml Oral.Susp) 30 ml PO DAILY PRN PRN Reason: Constipation Metformin HCl (Metformin Hcl 500 Mg Tablet) 500 mg PO BIDWM [facility] Last Admin: 03/29/22 08:04 Dose: 500 mg Metoprolol Tartrate (Metoprolol Tartrate 50 Mg Tablet) 50 mg PO BID [facility]; Protocol Last Admin: 03/29/22 08:05 Dose: 50 mg Nystatin (Nystatin Powder 15 Gm Bottle) 1 appl TOPICAL BID [facility]; Protocol Perphenazine (Perphenazine 8 Mg Tablet) 8 mg PO DAILY [facility] Last Admin: 03/29/22 08:07 Dose: 8 mg Perphenazine (Perphenazine 8 Mg Tablet) 16 mg PO BEDTIME [facility] Last Admin: 03/28/22 20:29 Dose: 16 mg Risperidone (Risperidone 2 Mg Tablet) 4 mg PO BID [facility] Last Admin: 03/29/22 08:11 Dose: 4 mg Senna/Docusate Sodium (Sennosides/Docusate Sodium Tablet) 1 tab PO BEDTIME PRN PRN Reason: Constipation Trazodone HCl (Trazodone Hcl 50 Mg Tablet) 50 mg PO BEDTIME PRN PRN Reason: Insomnia Last Admin: 03/29/22 01:49 Dose: 50 mg Vitamin D (Cholecalciferol (Vitamin D3) 10 Mcg Tablet) 10 mcg PO DAILY [facility] Last Admin: 03/29/22 08:06 Dose: 10 mcg Allergies Allergies Allergy/AdvReac Type Severity Reaction Status Date / Time aspirin Allergy Unknown Verified 03/26/22 20:21 ciprofloxacin [From Cipro] Allergy Gastrointestinal Verified 03/26/22 20:21 Upset ibuprofen Allergy Unknown Verified 03/26/22 20:21 Latex, Natural Rubber Allergy Hives Verified 03/26/22 20:21 NSAIDS (Non-Steroidal Allergy Unknown Verified 03/26/22 20:21 Anti-Inflamma omeprazole [From Prilosec] Allergy Unknown Verified 03/26/22 20:22 ondansetron [From Zofran] Allergy Unknown Verified 03/26/22 20:22 Penicillins Allergy Unknown Verified 03/26/22 20:21 Sulfa (Sulfonamide Allergy Gastrointestinal Verified 03/26/22 20:21 Antibiotics) Upset Assessment & Plan Assessment & Plan (1) Schizoaffective disorder, bipolar type: Status: Acute Code(s): F25.0 - Schizoaffective disorder, bipolar type Plan Ms. Pollock is a 76 year-old woman with hx of schizoaffective disorder brought [facility] due to increase agitation, aggression towards staff there which appears to be prompted by underlying paranoia. Pt presents as dysphoric, labile, anxious. We discussed risks, benefits and alternative treatment options. More collateral information from her OP providers may be required. Pt currently on 2 antipsychotics, perphenazine and risperidone. Depakote was added while in ED- currently 250mg po TID- will check levels. Added clonazepam for anxiety. Pt has eaton- please obtain copy PLAN 1. Admit to S1, CV, 15 minutes checks for safety 2. continue current medications, clonazepam added, 3. OBtain collateral information 4. Aftercare planning. I spent __20____ minutes with the patient and/or on the patient floor today, greater than?50% of which was spent counseling/coordinating care. Reason for contiued inpatient stay Substantial Risk for: inability to function, rapid decompensation and med/psych decompensation
[2022-03-29 21:05] VITALS: BP 146/77; PULSE 98; RESP 16; TEMP 36; O2SAT 94
[2022-03-29] MEDS: Atorvastatin Calcium 20 MG TABLET PO (21:27)
[2022-03-29] MEDS: Perphenazine 8 MG TABLET 16 MG PO (21:27)
[2022-03-29] MEDS: Docusate Sodium 100 MG CAPSULE 200 MG PO (21:27)
[2022-03-29 21:44] LABS: Glucose, Whole Blood 111 mg/dL (60-115)
[2022-03-30] MEDS: Levothyroxine Sodium 125 MCG TABLET PO (06:48)
[2022-03-30 08:40] VITALS: BP 125/61; PULSE 85; RESP 17; TEMP 35.9; O2SAT 95
[2022-03-30] MEDS: Cholecalciferol (Vitamin D3) 10 MCG TABLET PO (09:22)
[2022-03-30] MEDS: dilTIAZem HCL CD 120 MG CAP.ER.DEG PO (09:22)
[2022-03-30] MEDS: risperiDONE 2 MG TABLET 4 MG PO ×2 (09:22→21:44)
[2022-03-30] MEDS: clonazePAM 0.5 MG TABLET PO ×2 (09:22→21:44)
[2022-03-30] MEDS: Apixaban 5 MG TABLET PO ×2 (09:22→21:44)
[2022-03-30] MEDS: Divalproex Sodium Sprinkles 125 MG CAP.DR.SPR 250 MG PO ×3 (09:22→21:44)
[2022-03-30] MEDS: cephALEXin 500 MG CAPSULE PO ×2 (09:23→21:44)
[2022-03-30] MEDS: Digoxin 0.125 MG TABLET PO (09:23)
[2022-03-30] MEDS: Perphenazine 8 MG TABLET PO (09:23)
[2022-03-30] MEDS: Metoprolol Tartrate 50 MG TABLET PO ×2 (09:23→21:44)
[2022-03-30] MEDS: metFORMIN HCl 500 MG TABLET PO ×2 (09:23→17:08)
[2022-03-30] MEDS: Fenofibrate 160 MG TABLET PO (09:23)
[2022-03-30] MEDS: Nystatin Powder 15 GM BOTTLE 1 APPL TOPICAL (09:37)
[2022-03-30 09:39] LABS: Glucose, Whole Blood 96 mg/dL (60-115)
--- NOTE | 2022-03-30 16:44 | HO.PSYCHPN ---
Subjective Subjective Date of Service: 03/30/22 Reason For Visit: Schizoaffective Disorder Subjective Notes: Conditional Voluntary Interim History: The nursing staff reported the patient signs her CV. She has seen crying when her needs are not met. Very labile but easily redirectable On interview the patient denies new symptoms she was tearful but she stop crying right away when I engage in conversation. We discussed with the patient that her Depakote level was low that is why we will recheck his blood work on Monday morning. Mental Status Exam Mental Status Exam Patient Appearance: Well Grooomed Patient Orientation: Person Level of Consciousness: Awake Patient Behavior: Cooperative and Passive Mood Description: Labile Affect Description: Constricted Patient Cognition Impaired: Yes Ability to Follow Directions: Fair Speech Pattern: Clear Hallucinations: Auditory Delusions: Paranoid Ideation Thought Process: Distracted and Evasive Thought Content: positive for [place] and positive for Circumstantial Judgement: Fair Diagnostics Vital Signs (24Hr): Vital Signs - 24 hr 03/29/22 21:05 03/30/22 08:40 Temperature 96.8 F 96.6 F L Pulse Rate 98 85 Respiratory Rate 16 17 Blood Pressure 146/77 H 125/61 Pulse Oximetry 94 95 Oxygen Delivery Method Room Air Room Air BMI result Body Mass Index 30.6 Labs Results: 03/27/22 07:21 Labs: Laboratory Results - last 48 hr 03/28/22 03/28/22 03/29/22 07:42 21:09 07:34 POC Glucose 113 136 H 134 H 03/29/22 03/30/22 21:23 09:29 POC Glucose 111 96 Medications Medications Current Medications Acetaminophen (Acetaminophen 325 Mg Tablet) 650 mg PO Q6H PRN PRN Reason: Headache/Pain Mild Scale (1-3) Last Admin: 03/29/22 11:14 Dose: 650 mg Al Hydroxide/Mg Hydroxide (Magnesium Hydrox/Alum Hydrox 30 Ml Oral.Susp) 30 ml PO Q6H PRN PRN Reason: Heartburn/Nausea Last Admin: 03/28/22 02:06 Dose: 30 ml Apixaban (Apixaban 5 Mg Tablet) 5 mg PO BID [facility] Last Admin: 03/30/22 09:22 Dose: 5 mg Artificial Tears (Artificial Tears 15 Ml Drops) 1 drop EYE-BOTH Q4H PRN PRN Reason: Dry Eyes Last Admin: 03/27/22 21:19 Dose: 1 drop Atorvastatin Calcium (Atorvastatin Calcium 20 Mg Tablet) 20 mg PO BEDTIME [facility] Last Admin: 03/29/22 21:27 Dose: 20 mg Bisacodyl (Bisacodyl 10 Mg Supp.Rect) 10 mg [place] DAILY PRN PRN Reason: Constipation Bismuth Subsalicylate (Bismuth Subsalicylate 262 Mg Tablet) 524 mg PO QID PRN PRN Reason: Indigestion Cephalexin HCl (Cephalexin 500 Mg Capsule) 500 mg PO Q12H [facility] Last Admin: 03/30/22 09:23 Dose: 500 mg Clonazepam (Clonazepam 0.5 Mg Tablet) 0.5 mg PO BID [facility] Last Admin: 03/30/22 09:22 Dose: 0.5 mg Digoxin (Digoxin 0.125 Mg Tablet) 0.125 mg PO DAILY [facility] Last Admin: 03/30/22 09:23 Dose: 0.125 mg Diltiazem HCl (Diltiazem Hcl Cd 120 Mg Cap.Er.Deg) 120 mg PO DAILY [facility]; Protocol Last Admin: 03/30/22 09:22 Dose: 120 mg Divalproex Sodium (Divalproex Sodium Sprinkles 125 Mg Cap.Dr.Spr) 250 mg PO TID [facility] Last Admin: 03/30/22 15:15 Dose: 250 mg Docusate Sodium (Docusate Sodium 100 Mg Capsule) 200 mg PO BEDTIME [facility] Last Admin: 03/29/22 21:27 Dose: 200 mg Fenofibrate (Fenofibrate 160 Mg Tablet) 160 mg PO DAILY [facility] Last Admin: 03/30/22 09:23 Dose: 160 mg Levothyroxine Sodium (Levothyroxine Sodium 125 Mcg Tablet) 125 mcg PO DAILY@0600 [facility] Last Admin: 03/30/22 06:48 Dose: 125 mcg Magnesium Hydroxide (Milk Of Magnesia 30 Ml Oral.Susp) 30 ml PO DAILY PRN PRN Reason: Constipation Metformin HCl (Metformin Hcl 500 Mg Tablet) 500 mg PO BIDWM [facility] Last Admin: 03/30/22 09:23 Dose: 500 mg Metoprolol Tartrate (Metoprolol Tartrate 50 Mg Tablet) 50 mg PO BID [facility]; Protocol Last Admin: 03/30/22 09:23 Dose: 50 mg Nystatin (Nystatin Powder 15 Gm Bottle) 1 appl TOPICAL BID [facility]; Protocol Last Admin: 03/30/22 09:37 Dose: 1 appl Perphenazine (Perphenazine 8 Mg Tablet) 8 mg PO DAILY [facility] Last Admin: 03/30/22 09:23 Dose: 8 mg Perphenazine (Perphenazine 8 Mg Tablet) 16 mg PO BEDTIME [facility] Last Admin: 03/29/22 21:27 Dose: 16 mg Risperidone (Risperidone 2 Mg Tablet) 4 mg PO BID [facility] Last Admin: 03/30/22 09:22 Dose: 4 mg Senna/Docusate Sodium (Sennosides/Docusate Sodium Tablet) 1 tab PO BEDTIME PRN PRN Reason: Constipation Trazodone HCl (Trazodone Hcl 50 Mg Tablet) 50 mg PO BEDTIME PRN PRN Reason: Insomnia Last Admin: 03/29/22 01:49 Dose: 50 mg Vitamin D (Cholecalciferol (Vitamin D3) 10 Mcg Tablet) 10 mcg PO DAILY [facility] Last Admin: 03/30/22 09:22 Dose: 10 mcg Allergies Allergies Allergy/AdvReac Type Severity Reaction Status Date / Time aspirin Allergy Unknown Verified 03/26/22 20:21 ciprofloxacin [From Cipro] Allergy Gastrointestinal Verified 03/26/22 20:21 Upset ibuprofen Allergy Unknown Verified 03/26/22 20:21 Latex, Natural Rubber Allergy Hives Verified 03/26/22 20:21 NSAIDS (Non-Steroidal Allergy Unknown Verified 03/26/22 20:21 Anti-Inflamma omeprazole [From Prilosec] Allergy Unknown Verified 03/26/22 20:22 ondansetron [From Zofran] Allergy Unknown Verified 03/26/22 20:22 Penicillins Allergy Unknown Verified 03/26/22 20:21 Sulfa (Sulfonamide Allergy Gastrointestinal Verified 03/26/22 20:21 Antibiotics) Upset Assessment & Plan Assessment & Plan (1) Schizoaffective disorder, bipolar type: Status: Acute Code(s): F25.0 - Schizoaffective disorder, bipolar type Plan Ms. Pollock is a 76 year-old woman with hx of schizoaffective disorder brought [facility] to [facility] due to increase agitation, aggression towards staff there which appears to be prompted by underlying paranoia. Pt presents as dysphoric, labile, anxious. We discussed risks, benefits and alternative treatment options. More collateral information from her OP providers may be required. Pt currently on 2 antipsychotics, perphenazine and risperidone. Depakote was added while in ED- currently 250mg po TID- will check levels. Added clonazepam for anxiety. Pt has uma- please obtain copy PLAN 1. Admit to S1, CV, 15 minutes checks for safety 2. continue current medications, clonazepam added, 3. OBtain collateral information 4. Aftercare planning. 5. Depakote level, hemoglobin A1c, basic metabolic panel, lipid profile, liver panel for Monday I spent ___20___ minutes with the patient and/or on the patient floor today, greater than?50% of which was spent counseling/coordinating care. Reason for contiued inpatient stay Substantial Risk for: inability to function, rapid decompensation and med/psych decompensation
[2022-03-30 21:24] VITALS: BP 128/68; PULSE 87; RESP 18; TEMP 36.3; O2SAT 92
[2022-03-30] MEDS: Perphenazine 8 MG TABLET 16 MG PO (21:44)
[2022-03-30] MEDS: Docusate Sodium 100 MG CAPSULE 200 MG PO (21:44)
[2022-03-30] MEDS: Atorvastatin Calcium 20 MG TABLET PO (21:45)
[2022-03-30 22:19] LABS: Glucose, Whole Blood 162 mg/dL (60-115)
[2022-03-30] MEDS: Acetaminophen 325 MG TABLET 650 MG PO (22:38)
[2022-03-31] MEDS: traZODone HCL 50 MG TABLET PO (01:01)
[2022-03-31] MEDS: Levothyroxine Sodium 125 MCG TABLET PO (06:06)
[2022-03-31] MEDS: metFORMIN HCl 500 MG TABLET PO ×2 (06:12→16:57)
[2022-03-31 06:19] VITALS: BMI 31.1
[2022-03-31 06:20] LABS: Glucose, Whole Blood 127 mg/dL (60-115)
[2022-03-31] MEDS: Divalproex Sodium Sprinkles 125 MG CAP.DR.SPR 250 MG PO ×3 (09:26→21:39)
[2022-03-31] MEDS: dilTIAZem HCL CD 120 MG CAP.ER.DEG PO (09:26)
[2022-03-31] MEDS: Perphenazine 8 MG TABLET PO (09:27)
[2022-03-31] MEDS: risperiDONE 2 MG TABLET 4 MG PO ×2 (09:27→21:41)
[2022-03-31] MEDS: Digoxin 0.125 MG TABLET PO (09:27)
[2022-03-31] MEDS: Apixaban 5 MG TABLET PO ×2 (09:27→21:39)
[2022-03-31] MEDS: Cholecalciferol (Vitamin D3) 10 MCG TABLET PO (09:27)
[2022-03-31] MEDS: cephALEXin 500 MG CAPSULE PO ×2 (09:27→21:41)
[2022-03-31] MEDS: clonazePAM 0.5 MG TABLET PO ×2 (09:27→21:39)
[2022-03-31] MEDS: Fenofibrate 160 MG TABLET PO (09:28)
[2022-03-31] MEDS: Metoprolol Tartrate 50 MG TABLET PO ×2 (09:28→21:40)
[2022-03-31 09:30] VITALS: BP 123/62; PULSE 72; RESP 16; TEMP 36.3; O2SAT 94
[2022-03-31] MEDS: Acetaminophen 325 MG TABLET 650 MG PO (15:05)
[2022-03-31 15:10] VITALS: BP 120/64; PULSE 85; RESP 16; O2SAT 94
--- NOTE | 2022-03-31 15:20 | HO.PSYCHPN ---
Subjective Subjective Date of Service: 03/31/22 Reason For Visit: Schizoaffective Disorder Subjective Notes: Conditional Voluntary Interim History: the nursing staff reported the patient has been on her room most of the time, internally preoccupied mostly in his bed. Very labral and tearful at times but easily redirectable. The social work msw reported that she tried to contact her cartons but so far they have not contact the unit. On interview the patient denies new symptoms she denies over-sedation but she has being seen mostly on her bed all day long. Minimal participation in groups. Mental Status Exam Mental Status Exam Patient Appearance: Well Grooomed Patient Orientation: Person Level of Consciousness: Awake Patient Behavior: Cooperative Mood Description: Labile Affect Description: Constricted Patient Cognition Impaired: Yes Ability to Follow Directions: Good Speech Pattern: Clear Hallucinations: Auditory Delusions: Paranoid Ideation Thought Process: Illogical Thought Content: positive for Circumstantial and positive for Poverty of Content Judgement: Fair Diagnostics Vital Signs (24Hr): Vital Signs - 24 hr 03/30/22 21:24 03/31/22 09:30 03/31/22 15:10 Temperature 97.4 F 97.4 F Pulse Rate 87 72 85 Respiratory Rate 18 16 16 Blood Pressure 128/68 123/62 120/64 Pulse Oximetry 92 94 94 Oxygen Delivery Method Room Air Room Air Room Air BMI result Body Mass Index 31.1 Labs Results: 03/27/22 07:21 Labs: Laboratory Results - last 48 hr 03/29/22 03/30/22 03/30/22 21:23 09:29 21:43 POC Glucose 111 96 162 H 03/31/22 06:11 POC Glucose 127 H Medications Medications Current Medications Acetaminophen (Acetaminophen 325 Mg Tablet) 650 mg PO Q6H PRN PRN Reason: Headache/Pain Mild Scale (1-3) Last Admin: 03/31/22 15:05 Dose: 650 mg Al Hydroxide/Mg Hydroxide (Magnesium Hydrox/Alum Hydrox 30 Ml Oral.Susp) 30 ml PO Q6H PRN PRN Reason: Heartburn/Nausea Last Admin: 03/28/22 02:06 Dose: 30 ml Apixaban (Apixaban 5 Mg Tablet) 5 mg PO BID [facility] Last Admin: 03/31/22 09:27 Dose: 5 mg Artificial Tears (Artificial Tears 15 Ml Drops) 1 drop EYE-BOTH Q4H PRN PRN Reason: Dry Eyes Last Admin: 03/27/22 21:19 Dose: 1 drop Atorvastatin Calcium (Atorvastatin Calcium 20 Mg Tablet) 20 mg PO BEDTIME COUNT [facility]CLUDES [facility] Last Admin: 03/30/22 21:45 Dose: 20 mg Bisacodyl (Bisacodyl 10 Mg Supp.Rect) 10 mg [place] DAILY PRN PRN Reason: Constipation Bismuth Subsalicylate (Bismuth Subsalicylate 262 Mg Tablet) 524 mg PO QID PRN PRN Reason: Indigestion Cephalexin HCl (Cephalexin 500 Mg Capsule) 500 mg PO Q12H COUNT INCLUDES [facility] Last Admin: 03/31/22 09:27 Dose: 500 mg Clonazepam (Clonazepam 0.5 Mg Tablet) 0.5 mg PO BID COUNT [facility]CLUD[facility] Last Admin: 03/31/22 09:27 Dose: 0.5 mg Digoxin (Digoxin 0.125 Mg Tablet) 0.125 mg PO DAILY COUNT [facility]CLUDES [facility] Last Admin: 03/31/22 09:27 Dose: 0.125 mg Diltiazem HCl (Diltiazem Hcl Cd 120 Mg Cap.Er.Deg) 120 mg PO DAILY COUNT [facility]CLUD[facility]; Protocol Last Admin: 03/31/22 09:26 Dose: 120 mg Divalproex Sodium (Divalproex Sodium Sprinkles 125 Mg Cap.Dr.Spr) 250 mg PO TID COUNT [facility]CLUDES [facility] Last Admin: 03/31/22 15:16 Dose: 250 mg Docusate Sodium (Docusate Sodium 100 Mg Capsule) 200 mg PO BEDTIME COUNT [facility]CLUDES [facility] Last Admin: 03/30/22 21:44 Dose: 200 mg Fenofibrate (Fenofibrate 160 Mg Tablet) 160 mg PO DAILY COUNT [facility]CLUDES [facility] Last Admin: 03/31/22 09:28 Dose: 160 mg Levothyroxine Sodium (Levothyroxine Sodium 125 Mcg Tablet) 125 mcg PO DAILY@0600 [facility]CLUD[facility] Last Admin: 03/31/22 06:06 Dose: 125 mcg Magnesium Hydroxide (Milk Of Magnesia 30 Ml Oral.Susp) 30 ml PO DAILY PRN PRN Reason: Constipation Metformin HCl (Metformin Hcl 500 Mg Tablet) 500 mg PO BIDWM COUNT INCLUDES [facility] Last Admin: 03/31/22 06:12 Dose: 500 mg Metoprolol Tartrate (Metoprolol Tartrate 50 Mg Tablet) 50 mg PO BID [facility]; Protocol Last Admin: 03/31/22 09:28 Dose: 50 mg Nystatin (Nystatin Powder 15 Gm Bottle) 1 appl TOPICAL BID COUNT [facility]CLUDES [facility]; Protocol Last Admin: 03/31/22 12:56 Dose: Not Given Perphenazine (Perphenazine 8 Mg Tablet) 8 mg PO DAILY COUNT [facility]CLUD[facility] Last Admin: 03/31/22 09:27 Dose: 8 mg Perphenazine (Perphenazine 8 Mg Tablet) 16 mg PO BEDTIME COUNT [facility]CLUDES [facility] Last Admin: 03/30/22 21:44 Dose: 16 mg Risperidone (Risperidone 2 Mg Tablet) 4 mg PO BID COUNT [facility]CLUD[facility] Last Admin: 03/31/22 09:27 Dose: 4 mg Senna/Docusate Sodium (Sennosides/Docusate Sodium Tablet) 1 tab PO BEDTIME PRN PRN Reason: Constipation Trazodone HCl (Trazodone Hcl 50 Mg Tablet) 50 mg PO BEDTIME PRN PRN Reason: Insomnia Last Admin: 03/31/22 01:01 Dose: 50 mg Vitamin D (Cholecalciferol (Vitamin D3) 10 Mcg Tablet) 10 mcg PO DAILY COUNT [facility]CLUDES [facility] Last Admin: 03/31/22 09:27 Dose: 10 mcg Allergies Allergies Allergy/AdvReac Type Severity Reaction Status Date / Time aspirin Allergy Unknown Verified 03/26/22 20:21 ciprofloxacin [From Cipro] Allergy Gastrointestinal Verified 03/26/22 20:21 Upset ibuprofen Allergy Unknown Verified 03/26/22 20:21 Latex, Natural Rubber Allergy Hives Verified 03/26/22 20:21 NSAIDS (Non-Steroidal Allergy Unknown Verified 03/26/22 20:21 Anti-Inflamma omeprazole [From Prilosec] Allergy Unknown Verified 03/26/22 20:22 ondansetron [From Zofran] Allergy Unknown Verified 03/26/22 20:22 Penicillins Allergy Unknown Verified 03/26/22 20:21 Sulfa (Sulfonamide Allergy Gastrointestinal Verified 03/26/22 20:21 Antibiotics) Upset Assessment & Plan Assessment & Plan (1) Schizoaffective disorder, bipolar type: Status: Acute Code(s): F25.0 - Schizoaffective disorder, bipolar type Plan Ms. Pollock is a 76 year-old woman with hx of schizoaffective disorder [facility] due to increase agitation, aggression towards staff there which appears to be prompted by underlying paranoia. Pt presents as dysphoric, labile, anxious. We discussed risks, benefits and alternative treatment options. More collateral information from her OP providers may be required. Pt currently on 2 antipsychotics, perphenazine and risperidone. Depakote was added while in ED- currently 250mg po TID- will check levels. Added clonazepam for anxiety. Pt has uma- please obtain copy PLAN 1. Admit to S1, CV, 15 minutes checks for safety 2. continue current medications, clonazepam added, 3. OBtain collateral information 4. Aftercare planning. 5. Depakote level, hemoglobin A1c, basic metabolic panel, lipid profile, liver panel for Monday morning I spent ____20__ minutes with the patient and/or on the patient floor today, greater than?50% of which was spent counseling/coordinating care. Reason for contiued inpatient stay Substantial Risk for: inability to function, rapid decompensation and med/psych decompensation
[2022-03-31 18:00] VITALS: BP 139/67; PULSE 84; RESP 20; TEMP 36.5; O2SAT 96
[2022-03-31] MEDS: Atorvastatin Calcium 20 MG TABLET PO (21:39)
[2022-03-31] MEDS: Docusate Sodium 100 MG CAPSULE 200 MG PO (21:40)
[2022-03-31] MEDS: Nystatin Powder 15 GM BOTTLE 1 APPL TOPICAL (21:41)
[2022-03-31] MEDS: Perphenazine 8 MG TABLET 16 MG PO (21:41)
[2022-03-31 22:11] LABS: Glucose, Whole Blood 110 mg/dL (60-115)
[2022-04-01] MEDS: Acetaminophen 325 MG TABLET 650 MG PO ×3 (01:25→22:22)
[2022-04-01] MEDS: traZODone HCL 50 MG TABLET PO ×2 (01:26→22:22)
[2022-04-01 06:00] VITALS: BP 126/60; PULSE 81; RESP 17; TEMP 36.2; O2SAT 91
[2022-04-01] MEDS: Levothyroxine Sodium 125 MCG TABLET PO (06:30)
[2022-04-01] MEDS: Fenofibrate 160 MG TABLET PO (08:40)
[2022-04-01] MEDS: metFORMIN HCl 500 MG TABLET PO (08:40)
[2022-04-01] MEDS: risperiDONE 2 MG TABLET 4 MG PO ×2 (08:40→20:23)
[2022-04-01] MEDS: Cholecalciferol (Vitamin D3) 10 MCG TABLET PO (08:41)
[2022-04-01] MEDS: Divalproex Sodium Sprinkles 125 MG CAP.DR.SPR 250 MG PO (08:41)
[2022-04-01] MEDS: cephALEXin 500 MG CAPSULE PO ×2 (08:41→20:30)
[2022-04-01] MEDS: Metoprolol Tartrate 50 MG TABLET PO ×2 (08:41→20:22)
[2022-04-01] MEDS: Digoxin 0.125 MG TABLET PO (08:41)
[2022-04-01] MEDS: Apixaban 5 MG TABLET PO ×2 (08:41→20:21)
[2022-04-01] MEDS: dilTIAZem HCL CD 120 MG CAP.ER.DEG PO (08:41)
[2022-04-01] MEDS: clonazePAM 0.5 MG TABLET PO ×2 (08:41→20:21)
[2022-04-01] MEDS: Perphenazine 8 MG TABLET PO (08:41)
[2022-04-01 10:06] LABS: MANUAL DIFF FLAG NO
[2022-04-01 10:08] LABS: Basophils Percent Auto 0.4 % (0-2); Eosinophils Absolute Auto 0.3 X10*3/uL (0.0-0.4); Eosinophils Percent Auto 3.2 % (0-4); Hematocrit 37.3 % (37.0-47.0); Hemoglobin 12.2 g/dl (12.0-16.0); Imm Gran Abs Auto 0.05 X10*3/uL (0.00-0.03); Imm Gran Pct Auto 0.5 % (0.0-0.4); Mean Corpuscular HGB Conc 32.7 g/dl (31.0-35.0); Mean Corpuscular Hemoglobin 28.9 pg (27.0-33.0); Mean Corpuscular Volume 88.4 fL (80.0-98.0); Mean Platelet Volume 11.9 fL (9.4-12.3); Monocytes Absolute Auto 0.9 X10*3/uL (0.1-1.2); Monocytes Percent Auto 9.5 % (2-11); Neutrophils Absolute Auto 5.3 x10*3/uL (2.0-8.3); Neutrophils Percent Auto 55.4 % (45-73); Platelet Count 261 X10*3/uL (160-400); Red Blood Count 4.22 X10*6/uL (4.20-5.50); Red Cell Distribution Width 13.8 % (11.0-16.0); White Blood Count 9.6 X10*3/uL (4.8-10.8)
[2022-04-01 10:19] LABS: Estimated Average Glucose 157 mg/dL; Hemoglobin A1c % 7.1 %
[2022-04-01 10:28] LABS: Alanine Aminotransferase 11 U/L (0-31); Alkaline Phosphatase 64 U/L (39-117); Anion Gap 14 (12-20); Aspartate Amino Transferase 8 U/L (5-31); Bilirubin Direct 0.2 mg/dL (0.0-0.5); Bilirubin Total 0.4 mg/dL (0.0-1.0); Blood Urea Nitrogen 17 mg/dL (9-16); Calcium 9.8 mg/dL (8.4-10.2); Carbon Dioxide 27 mmol/L (22-29); Chloride 104 mmol/L (96-108); Cholesterol 127 mg/dL; Creatinine Clr Calc Pharmacy 67.6; Estimated Glomerular Filt Rate > 60; Glucose Random 156 mg/dL (60-115); HDL Cholesterol 37 mg/dL; LDL Cholesterol Calculated 63 mg/dl; Potassium 4.2 mmol/L (3.3-5.1); Sodium 141 mmol/L (135-145); Total Protein 6.7 g/dL (6.5-8.0); Triglycerides 136 mg/dL
[2022-04-01 10:33] LABS: Valproate 34.5 mcg/mL (50.0-100.0)
[2022-04-01 10:48] LABS: Thyroid Stimulating Hormone 1.93 uIU/mL (0.32-4.0)
--- NOTE | 2022-04-01 13:03 | HO.PSYCHPN ---
Subjective Subjective Date of Service: 04/01/22 Reason For Visit: Schizoaffective Disorder Subjective Notes: Conditional Voluntary Interim History: the nursing staff reported the patient has been isolative most of the time in her home. She has gone outside to ate her dinner and she is very lab I will crying easily. The nursing staff also reported that she has been fully compliant with treatment and she reported headaches with even in the improve with Tylenol and trazodone. She slept 5 hours. On interview the patient remains internally preoccupied, dysphoric mostly in her room. Mental Status Exam Mental Status Exam Patient Appearance: Appropriate Patient Orientation: Person and Situation Level of Consciousness: Awake Patient Behavior: Guarded and Cooperative Mood Description: Withdrawn Affect Description: Labile Ability to Follow Directions: Fair Speech Pattern: Clear Hallucinations: Auditory Delusions: Paranoid Ideation Thought Process: Linear Thought Content: positive for Circumstantial and positive for Poverty of Content Judgement: Fair Diagnostics Vital Signs (24Hr): Vital Signs - 24 hr 03/31/22 15:10 03/31/22 18:00 04/01/22 06:00 Temperature 97.7 F 97.1 F Pulse Rate 85 84 81 Respiratory Rate 16 20 17 Blood Pressure 120/64 139/67 126/60 Pulse Oximetry 94 96 91 L Oxygen Delivery Method Room Air Room Air Room Air BMI result Body Mass Index 31.1 Labs Results: 04/01/22 09:38 04/01/22 09:38 Labs: Laboratory Results - last 48 hr 03/30/22 03/31/22 03/31/22 21:43 06:11 21:59 WBC RBC Hgb Hct MCV MCH MCHC RDW Plt Count MPV Immature Gran % (Auto) Neut % (Auto) Lymph % (Auto) [place] % (Auto) Eos % (Auto) Baso % (Auto) Lymph # (Auto) [place] # (Auto) Eos # (Auto) Baso # (Auto) Abs Immat Gran (auto) Absolute Neuts (auto) Absolute Nucleated RBC Nucleated RBC % (auto) Sodium Potassium Chloride Carbon Dioxide Anion Gap BUN Creatinine Estim Creat Clear Calc Estimated GFR POC Glucose 162 H 127 H 110 Random Glucose Estimat Average Glucose Hemoglobin A1c % Calcium Total Bilirubin Direct Bilirubin AST ALT Alkaline Phosphatase Total Protein Albumin Triglycerides Cholesterol LDL Cholesterol, Calc HDL Cholesterol TSH Valproic Acid 04/01/22 04/01/22 04/01/22 09:38 09:38 09:38 WBC 9.6 RBC 4.22 Hgb 12.2 Hct 37.3 MCV 88.4 MCH 28.9 MCHC 32.7 RDW 13.8 Plt Count 261 MPV 11.9 Immature Gran % (Auto) 0.5 H Neut % (Auto) 55.4 Lymph % (Auto) 31.0 [place] % (Auto) 9.5 Eos % (Auto) 3.2 Baso % (Auto) 0.4 Lymph # (Auto) 3.0 [place] # (Auto) 0.9 Eos # (Auto) 0.3 Baso # (Auto) 0.0 Abs Immat Gran (auto) 0.05 H Absolute Neuts (auto) 5.3 Absolute Nucleated RBC 0.000 Nucleated RBC % (auto) 0.0 Sodium 141 Potassium 4.2 Chloride 104 Carbon Dioxide 27 Anion Gap 14 BUN 17 H Creatinine 0.83 Estim Creat Clear Calc 67.6 Estimated GFR > 60 POC Glucose Random Glucose 156 H Estimat Average Glucose 157 Hemoglobin A1c % 7.1 Calcium 9.8 Total Bilirubin 0.4 Direct Bilirubin 0.2 AST 8 ALT 11 Alkaline Phosphatase 64 Total Protein 6.7 Albumin 4.0 Triglycerides 136 Cholesterol 127 LDL Cholesterol, Calc 63 HDL Cholesterol 37 TSH 1.93 Valproic Acid 34.5 L Medications Medications Current Medications Acetaminophen (Acetaminophen 325 Mg Tablet) 650 mg PO Q6H PRN PRN Reason: Headache/Pain Mild Scale (1-3) Last Admin: 04/01/22 01:25 Dose: 650 mg Al Hydroxide/Mg Hydroxide (Magnesium Hydrox/Alum Hydrox 30 Ml Oral.Susp) 30 ml PO Q6H PRN PRN Reason: Heartburn/Nausea Last Admin: 03/28/22 02:06 Dose: 30 ml Apixaban (Apixaban 5 Mg Tablet) 5 mg PO BID [facility] Last Admin: 04/01/22 08:41 Dose: 5 mg Artificial Tears (Artificial Tears 15 Ml Drops) 1 drop EYE-BOTH Q4H PRN PRN Reason: Dry Eyes Last Admin: 03/27/22 21:19 Dose: 1 drop Atorvastatin Calcium (Atorvastatin Calcium 20 Mg Tablet) 20 mg PO BEDTIME [facility] Last Admin: 03/31/22 21:39 Dose: 20 mg Bisacodyl (Bisacodyl 10 Mg Supp.Rect) 10 mg [place] DAILY PRN PRN Reason: Constipation Bismuth Subsalicylate (Bismuth Subsalicylate 262 Mg Tablet) 524 mg PO QID PRN PRN Reason: Indigestion Cephalexin HCl (Cephalexin 500 Mg Capsule) 500 mg PO Q12H [facility] Last Admin: 04/01/22 08:41 Dose: 500 mg Clonazepam (Clonazepam 0.5 Mg Tablet) 0.5 mg PO BID [facility] Last Admin: 04/01/22 08:41 Dose: 0.5 mg Digoxin (Digoxin 0.125 Mg Tablet) 0.125 mg PO DAILY [facility] Last Admin: 04/01/22 08:41 Dose: 0.125 mg Diltiazem HCl (Diltiazem Hcl Cd 120 Mg Cap.Er.Deg) 120 mg PO DAILY [facility]; Protocol Last Admin: 04/01/22 08:41 Dose: 120 mg Divalproex Sodium (Divalproex Sodium Sprinkles 125 Mg Cap.Dr.Spr) 250 mg PO TID [facility] Last Admin: 04/01/22 08:41 Dose: 250 mg Docusate Sodium (Docusate Sodium 100 Mg Capsule) 200 mg PO BEDTIME [facility] Last Admin: 03/31/22 21:40 Dose: 200 mg Fenofibrate (Fenofibrate 160 Mg Tablet) 160 mg PO DAILY [facility] Last Admin: 04/01/22 08:40 Dose: 160 mg Levothyroxine Sodium (Levothyroxine Sodium 125 Mcg Tablet) 125 mcg PO DAILY@0600 [facility] Last Admin: 04/01/22 06:30 Dose: 125 mcg Magnesium Hydroxide (Milk Of Magnesia 30 Ml Oral.Susp) 30 ml PO DAILY PRN PRN Reason: Constipation Metformin HCl (Metformin Hcl 500 Mg Tablet) 500 mg PO BIDWM [facility] Last Admin: 04/01/22 08:40 Dose: 500 mg Metoprolol Tartrate (Metoprolol Tartrate 50 Mg Tablet) 50 mg PO BID [facility]; Protocol Last Admin: 04/01/22 08:41 Dose: 50 mg Nystatin (Nystatin Powder 15 Gm Bottle) 1 appl TOPICAL BID [facility]; Protocol Last Admin: 04/01/22 08:51 Dose: Not Given Perphenazine (Perphenazine 8 Mg Tablet) 8 mg PO DAILY [facility] Last Admin: 04/01/22 08:41 Dose: 8 mg Perphenazine (Perphenazine 8 Mg Tablet) 16 mg PO BEDTIME [facility] Last Admin: 06/16/22 21:41 Dose: 16 mg Risperidone (Risperidone 2 Mg Tablet) 4 mg PO BID [facility] Last Admin: 04/01/22 08:40 Dose: 4 mg Senna/Docusate Sodium (Sennosides/Docusate Sodium Tablet) 1 tab PO BEDTIME PRN PRN Reason: Constipation Trazodone HCl (Trazodone Hcl 50 Mg Tablet) 50 mg PO BEDTIME PRN PRN Reason: Insomnia Last Admin: 04/01/22 01:26 Dose: 50 mg Vitamin D (Cholecalciferol (Vitamin D3) 10 Mcg Tablet) 10 mcg PO DAILY [facility] Last Admin: 04/01/22 08:41 Dose: 10 mcg Allergies Allergies Allergy/AdvReac Type Severity Reaction Status Date / Time aspirin Allergy Unknown Verified 03/26/22 20:21 ciprofloxacin [From Cipro] Allergy Gastrointestinal Verified 03/26/22 20:21 Upset ibuprofen Allergy Unknown Verified 03/26/22 20:21 Latex, Natural Rubber Allergy Hives Verified 03/26/22 20:21 NSAIDS (Non-Steroidal Allergy Unknown Verified 03/26/22 20:21 Anti-Inflamma omeprazole [From Prilosec] Allergy Unknown Verified 03/26/22 20:22 ondansetron [From Zofran] Allergy Unknown Verified 03/26/22 20:22 Penicillins Allergy Unknown Verified 03/26/22 20:21 Sulfa (Sulfonamide Allergy Gastrointestinal Verified 03/26/22 20:21 Antibiotics) Upset Assessment & Plan Assessment & Plan (1) Schizoaffective disorder, bipolar type: Status: Acute Code(s): F25.0 - Schizoaffective disorder, bipolar type Plan Ms. Pollock is a 76 year-old woman with hx of schizoaffective disorder [facility] due to increase agitation, aggression towards staff there which appears to be prompted by underlying paranoia. Pt presents as dysphoric, labile, anxious. We discussed risks, benefits and alternative treatment options. More collateral information from her OP providers may be required. Pt currently on 2 antipsychotics, perphenazine and risperidone. Depakote was added while in ED- currently 250mg po TID- will check levels. Added clonazepam for anxiety. Pt has eaton- please obtain copy PLAN 1. Admit to S1, CV, 15 minutes checks for safety 2. continue current medications, clonazepam added, 3. OBtain collateral information 4. Aftercare planning. 5. Depakote level For Monday. 6. Increase Depakote up to a 1000 mg per day I spent __20____ minutes with the patient and/or on the patient floor today, greater than?50% of which was spent counseling/coordinating care. Reason for contiued inpatient stay Substantial Risk for: inability to function, rapid decompensation and med/psych decompensation
[2022-04-01 18:00] VITALS: BP 141/64; PULSE 78; RESP 17; TEMP 36.3; O2SAT 94
[2022-04-01] MEDS: Atorvastatin Calcium 20 MG TABLET PO (20:21)
[2022-04-01] MEDS: Docusate Sodium 100 MG CAPSULE 200 MG PO (20:22)
[2022-04-01] MEDS: Divalproex Sodium Sprinkles 125 MG CAP.DR.SPR 500 MG PO (20:22)
[2022-04-01] MEDS: Perphenazine 8 MG TABLET 16 MG PO (20:23)
[2022-04-01] MEDS: Nystatin Powder 15 GM BOTTLE 1 APPL TOPICAL (20:23)
[2022-04-01 21:25] LABS: Glucose, Whole Blood 186 mg/dL (60-115)
[2022-04-02 08:00] VITALS: BP 147/60; PULSE 103; RESP 18; TEMP 35.7; O2SAT 95
[2022-04-02] MEDS: metFORMIN HCl 500 MG TABLET PO (08:15)
[2022-04-02] MEDS: Levothyroxine Sodium 125 MCG TABLET PO (08:15)
[2022-04-02] MEDS: Perphenazine 8 MG TABLET PO (08:16)
[2022-04-02] MEDS: Fenofibrate 160 MG TABLET PO (08:16)
[2022-04-02] MEDS: dilTIAZem HCL CD 120 MG CAP.ER.DEG PO (08:16)
[2022-04-02] MEDS: Apixaban 5 MG TABLET PO ×2 (08:16→21:08)
[2022-04-02] MEDS: cephALEXin 500 MG CAPSULE PO ×2 (08:16→21:10)
[2022-04-02] MEDS: clonazePAM 0.5 MG TABLET PO ×2 (08:16→21:08)
[2022-04-02] MEDS: risperiDONE 2 MG TABLET 4 MG PO ×2 (08:16→21:09)
[2022-04-02] MEDS: Digoxin 0.125 MG TABLET PO (08:17)
[2022-04-02] MEDS: Metoprolol Tartrate 50 MG TABLET PO ×2 (08:17→21:09)
[2022-04-02] MEDS: Divalproex Sodium Sprinkles 125 MG CAP.DR.SPR 500 MG PO ×2 (08:17→21:08)
[2022-04-02] MEDS: Cholecalciferol (Vitamin D3) 10 MCG TABLET PO (08:17)
[2022-04-02 10:29] LABS: Glucose, Whole Blood 127 mg/dL (60-115)
[2022-04-02] MEDS: Acetaminophen 325 MG TABLET 650 MG PO ×2 (10:53→23:27)
--- NOTE | 2022-04-02 17:41 | P.PNPSI_ITS ---
Subjective Subjective Date of Service: 04/02/22 Reason For Visit: Schizoaffective Disorder Interim History: met with patient. Discussed with Nursing. No acute concerns. Patient seen in room. Wearing pajamas and walking frame next to bed. Reported her main question was when which she be discharged. When redirected to primary team after the weekend, reports she had no other questions or concerns. Denied depression, psychosis SI or medication concerns. Sleep has been okay. Medication Compliance: Yes Side effects from medications: No Attending Groups: No Review of Systems Acute medical concerns: No Mental Status Exam Mental Status Exam Narrative: Limited engagement. In bed. Pajamas and fair self-care. Denied depression SI HI or psychosis. Diagnostics Vital Signs (24Hr): Vital Signs - 24 hr 04/01/22 18:00 04/02/22 08:00 Temperature 97.3 F 96.3 F L Pulse Rate 78 103 H Respiratory Rate 17 18 Blood Pressure 141/64 H 147/60 H Pulse Oximetry 94 95 Oxygen Delivery Method Room Air Room Air BMI result Body Mass Index 31.1 Labs Results: 04/01/22 09:38 04/01/22 09:38 Labs: Laboratory Results - last 48 hr 03/31/22 04/01/22 04/01/22 21:59 09:38 09:38 WBC 9.6 RBC 4.22 Hgb 12.2 Hct 37.3 MCV 88.4 MCH 28.9 MCHC 32.7 RDW 13.8 Plt Count 261 MPV 11.9 Immature Gran % (Auto) 0.5 H Neut % (Auto) 55.4 Lymph % (Auto) 31.0 [place] % (Auto) 9.5 Eos % (Auto) 3.2 Baso % (Auto) 0.4 Lymph # (Auto) 3.0 [place] # (Auto) 0.9 Eos # (Auto) 0.3 Baso # (Auto) 0.0 Abs Immat Gran (auto) 0.05 H Absolute Neuts (auto) 5.3 Absolute Nucleated RBC 0.000 Nucleated RBC % (auto) 0.0 Sodium 141 Potassium 4.2 Chloride 104 Carbon Dioxide 27 Anion Gap 14 BUN 17 H Creatinine 0.83 Estim Creat Clear Calc 67.6 Estimated GFR > 60 POC Glucose 110 Random Glucose 156 H Estimat Average Glucose Hemoglobin A1c % Calcium 9.8 Total Bilirubin 0.4 Direct Bilirubin 0.2 AST 8 ALT 11 Alkaline Phosphatase 64 Total Protein 6.7 Albumin 4.0 Triglycerides 136 Cholesterol 127 LDL Cholesterol, Calc 63 HDL Cholesterol 37 TSH 1.93 Valproic Acid 34.5 L 04/01/22 04/01/22 04/02/22 09:38 20:26 10:24 WBC RBC Hgb Hct MCV MCH MCHC RDW Plt Count MPV Immature Gran % (Auto) Neut % (Auto) Lymph % (Auto) [place] % (Auto) Eos % (Auto) Baso % (Auto) Lymph # (Auto) [place] # (Auto) Eos # (Auto) Baso # (Auto) Abs Immat Gran (auto) Absolute Neuts (auto) Absolute Nucleated RBC Nucleated RBC % (auto) Sodium Potassium Chloride Carbon Dioxide Anion Gap BUN Creatinine Estim Creat Clear Calc Estimated GFR POC Glucose 186 H 127 H Random Glucose Estimat Average Glucose 157 Hemoglobin A1c % 7.1 Calcium Total Bilirubin Direct Bilirubin AST ALT Alkaline Phosphatase Total Protein Albumin Triglycerides Cholesterol LDL Cholesterol, Calc HDL Cholesterol TSH Valproic Acid Medications Medications Current Medications Acetaminophen (Acetaminophen 325 Mg Tablet) 650 mg PO Q6H PRN PRN Reason: Headache/Pain Mild Scale (1-3) Last Admin: 04/02/22 10:53 Dose: 650 mg Al Hydroxide/Mg Hydroxide (Magnesium Hydrox/Alum Hydrox 30 Ml Oral.Susp) 30 ml PO Q6H PRN PRN Reason: Heartburn/Nausea Last Admin: 03/28/22 02:06 Dose: 30 ml Apixaban (Apixaban 5 Mg Tablet) 5 mg PO BID [facility] Last Admin: 04/02/22 08:16 Dose: 5 mg Artificial Tears (Artificial Tears 15 Ml Drops) 1 drop EYE-BOTH Q4H PRN PRN Reason: Dry Eyes Last Admin: 03/27/22 21:19 Dose: 1 drop Atorvastatin Calcium (Atorvastatin Calcium 20 Mg Tablet) 20 mg PO BEDTIME [facility] Last Admin: 04/01/22 20:21 Dose: 20 mg Bisacodyl (Bisacodyl 10 Mg Supp.Rect) 10 mg [place] DAILY PRN PRN Reason: Constipation Bismuth Subsalicylate (Bismuth Subsalicylate 262 Mg Tablet) 524 mg PO QID PRN PRN Reason: Indigestion Cephalexin HCl (Cephalexin 500 Mg Capsule) 500 mg PO Q12H [facility] Last Admin: 04/02/22 08:16 Dose: 500 mg Clonazepam (Clonazepam 0.5 Mg Tablet) 0.5 mg PO BID [facility] Last Admin: 04/02/22 08:16 Dose: 0.5 mg Digoxin (Digoxin 0.125 Mg Tablet) 0.125 mg PO DAILY [facility] Last Admin: 04/02/22 08:17 Dose: 0.125 mg Diltiazem HCl (Diltiazem Hcl Cd 120 Mg Cap.Er.Deg) 120 mg PO DAILY [facility]; Protocol Last Admin: 04/02/22 08:16 Dose: 120 mg Divalproex Sodium (Divalproex Sodium Sprinkles 125 Mg Cap.Dr.Spr) 500 mg PO BID [facility] Last Admin: 04/02/22 08:17 Dose: 500 mg Docusate Sodium (Docusate Sodium 100 Mg Capsule) 200 mg PO BEDTIME [facility] Last Admin: 04/01/22 20:22 Dose: 200 mg Fenofibrate (Fenofibrate 160 Mg Tablet) 160 mg PO DAILY [facility] Last Admin: 04/02/22 08:16 Dose: 160 mg Levothyroxine Sodium (Levothyroxine Sodium 125 Mcg Tablet) 125 mcg PO DAILY@0600 [facility] Last Admin: 04/02/22 08:15 Dose: 125 mcg Magnesium Hydroxide (Milk Of Magnesia 30 Ml Oral.Susp) 30 ml PO DAILY PRN PRN Reason: Constipation Metformin HCl (Metformin Hcl 500 Mg Tablet) 500 mg PO BIDWM [facility] Last Admin: 04/02/22 17:03 Dose: Not Given Metoprolol Tartrate (Metoprolol Tartrate 50 Mg Tablet) 50 mg PO BID [facility]; Protocol Last Admin: 04/02/22 08:17 Dose: 50 mg Nystatin (Nystatin Powder 15 Gm Bottle) 1 appl TOPICAL BID [facility]; Protocol Last Admin: 04/02/22 10:59 Dose: Not Given Perphenazine (Perphenazine 8 Mg Tablet) 8 mg PO DAILY [facility] Last Admin: 04/02/22 08:16 Dose: 8 mg Perphenazine (Perphenazine 8 Mg Tablet) 16 mg PO BEDTIME [facility] Last Admin: 04/01/22 20:23 Dose: 16 mg Risperidone (Risperidone 2 Mg Tablet) 4 mg PO BID [facility] Last Admin: 04/02/22 08:16 Dose: 4 mg Senna/Docusate Sodium (Sennosides/Docusate Sodium Tablet) 1 tab PO BEDTIME PRN PRN Reason: Constipation Trazodone HCl (Trazodone Hcl 50 Mg Tablet) 50 mg PO BEDTIME PRN PRN Reason: Insomnia Last Admin: 04/01/22 22:22 Dose: 50 mg Vitamin D (Cholecalciferol (Vitamin D3) 10 Mcg Tablet) 10 mcg PO DAILY [facility] Last Admin: 04/02/22 08:17 Dose: 10 mcg Allergies Allergies Allergy/AdvReac Type Severity Reaction Status Date / Time aspirin Allergy Unknown Verified 03/26/22 20:21 ciprofloxacin [From Cipro] Allergy Gastrointestinal Verified 03/26/22 20:21 Upset ibuprofen Allergy Unknown Verified 03/26/22 20:21 Latex, Natural Rubber Allergy Hives Verified 03/26/22 20:21 NSAIDS (Non-Steroidal Allergy Unknown Verified 03/26/22 20:21 Anti-Inflamma omeprazole [From Prilosec] Allergy Unknown Verified 03/26/22 20:22 ondansetron [From Zofran] Allergy Unknown Verified 03/26/22 20:22 Penicillins Allergy Unknown Verified 03/26/22 20:21 Sulfa (Sulfonamide Allergy Gastrointestinal Verified 03/26/22 20:21 Antibiotics) Upset Assessment & Plan Assessment & Plan (1) Schizoaffective disorder, bipolar type: Status: Acute Code(s): F25.0 - Schizoaffective disorder, bipolar type Plan Ms. Pollock is a 76 year-old woman with hx of schizoaffective disorder brought from [facility] to [facility] due to increase agitation, aggression towards staff there which appears to be prompted by underlying paranoia. Pt presents as dysphoric, labile, anxious. We discussed risks, benefits and alternative treatment options. More collateral information from her OP providers may be required. Pt currently on 2 antipsychotics, perphenazine and risperidone. Depakote was added while in ED- currently 250mg po TID- will check levels. Added clonazepam for anxiety. Pt has eaton- please obtain copy PLAN 1. Admit to S1, CV, 15 minutes checks for safety 2. continue current medications, clonazepam added, 3. OBtain collateral information 4. Aftercare planning. 5. Depakote level For Monday. 6. Increase Depakote up to a 1000 mg per day 04/02: no changes I spent minutes with the patient and/or on the patient floor today, gr eater than?50% of which was spent counseling/coordinating care. Reason for contiued inpatient stay Substantial Risk for: inability to function
[2022-04-02 18:00] VITALS: BP 134/66; PULSE 84; RESP 16; TEMP 36.1; O2SAT 93
[2022-04-02] MEDS: Atorvastatin Calcium 20 MG TABLET PO (21:08)
[2022-04-02] MEDS: Docusate Sodium 100 MG CAPSULE 200 MG PO (21:08)
[2022-04-02] MEDS: Nystatin Powder 15 GM BOTTLE 1 APPL TOPICAL (21:09)
[2022-04-02] MEDS: Perphenazine 8 MG TABLET 16 MG PO (21:09)
[2022-04-02 21:24] LABS: Glucose, Whole Blood 127 mg/dL (60-115)
[2022-04-03] MEDS: Levothyroxine Sodium 125 MCG TABLET PO (06:03)
[2022-04-03] MEDS: Acetaminophen 325 MG TABLET 650 MG PO ×2 (06:08→14:41)
[2022-04-03 07:30] VITALS: BP 133/63; PULSE 69; RESP 14; TEMP 36.4; O2SAT 94
[2022-04-03 07:56] LABS: Glucose, Whole Blood 127 mg/dL (60-115)
[2022-04-03] MEDS: risperiDONE 2 MG TABLET 4 MG PO ×2 (08:05→19:53)
[2022-04-03] MEDS: Divalproex Sodium Sprinkles 125 MG CAP.DR.SPR 500 MG PO ×2 (08:06→19:52)
[2022-04-03] MEDS: Perphenazine 8 MG TABLET PO (08:06)
[2022-04-03] MEDS: dilTIAZem HCL CD 120 MG CAP.ER.DEG PO (08:07)
[2022-04-03] MEDS: Apixaban 5 MG TABLET PO ×2 (08:07→19:53)
[2022-04-03] MEDS: clonazePAM 0.5 MG TABLET PO ×2 (08:07→19:53)
[2022-04-03] MEDS: Cholecalciferol (Vitamin D3) 10 MCG TABLET PO (08:07)
[2022-04-03] MEDS: metFORMIN HCl 500 MG TABLET PO ×2 (08:08→16:25)
[2022-04-03 08:10] VITALS: PULSE 74
[2022-04-03] MEDS: Digoxin 0.125 MG TABLET PO (08:10)
[2022-04-03] MEDS: Fenofibrate 160 MG TABLET PO (08:22)
[2022-04-03] MEDS: Metoprolol Tartrate 50 MG TABLET PO ×2 (08:24→19:53)
[2022-04-03] MEDS: Nystatin Powder 15 GM BOTTLE 1 APPL TOPICAL (09:56)
--- NOTE | 2022-04-03 11:09 | HO.PSYCHPN ---
Subjective Subjective Date of Service: 04/03/22 Reason For Visit: Schizoaffective Disorder Interim History: Patient seen and discussed with team. RN denies behavioral issues. Patient evaluated today and upon interview pt says she is okay. She is laying down in bed, napping, declined to talk further. In the milieu, patient is safe in behavior. Medication Compliance: Yes Side effects from medications: No Attending Groups: No Review of Systems Acute medical concerns: No Medical Review of Systems: unchanged Mental Status Exam Mental Status Exam Narrative: Patient Appearance: Appropriate Patient Orientation: Person and Situation Level of Consciousness: Awake Patient Behavior: Guarded and Cooperative Mood Description: Withdrawn Affect Description: Labile Ability to Follow Directions: Fair Speech Pattern: Clear Hallucinations: Auditory Delusions: Paranoid Ideation Thought Process: Linear Thought Content: positive for Circumstantial and positive for Poverty of Content Judgment: Fair Diagnostics Vital Signs (24Hr): Vital Signs - 24 hr 04/02/22 18:00 04/03/22 08:10 04/03/22 07:30 Temperature 96.9 F 97.5 F Pulse Rate 84 74 69 Respiratory Rate 16 14 Blood Pressure 134/66 133/63 Pulse Oximetry 93 94 Oxygen Delivery Method Room Air Room Air BMI result Body Mass Index 31.1 Labs Results: 04/01/22 09:38 04/01/22 09:38 Labs: Laboratory Results - last 48 hr 04/01/22 04/02/22 04/02/22 20:26 10:24 21:04 POC Glucose 186 H 127 H 127 H 04/03/22 07:52 POC Glucose 127 H Medications Medications Current Medications Acetaminophen (Acetaminophen 325 Mg Tablet) 650 mg PO Q6H PRN PRN Reason: Headache/Pain Mild Scale (1-3) Last Admin: 04/03/22 06:08 Dose: 650 mg Al Hydroxide/Mg Hydroxide (Magnesium Hydrox/Alum Hydrox 30 Ml Oral.Susp) 30 ml PO Q6H PRN PRN Reason: Heartburn/Nausea Last Admin: 03/28/22 02:06 Dose: 30 ml Apixaban (Apixaban 5 Mg Tablet) 5 mg PO BID [facility] Last Admin: 04/03/22 08:07 Dose: 5 mg Artificial Tears (Artificial Tears 15 Ml Drops) 1 drop EYE-BOTH Q4H PRN PRN Reason: Dry Eyes Last Admin: 03/27/22 21:19 Dose: 1 drop Atorvastatin Calcium (Atorvastatin Calcium 20 Mg Tablet) 20 mg PO BEDTIME [facility] Last Admin: 04/02/22 21:08 Dose: 20 mg Bisacodyl (Bisacodyl 10 Mg Supp.Rect) 10 mg [place] DAILY PRN PRN Reason: Constipation Bismuth Subsalicylate (Bismuth Subsalicylate 262 Mg Tablet) 524 mg PO QID PRN PRN Reason: Indigestion Clonazepam (Clonazepam 0.5 Mg Tablet) 0.5 mg PO BID [facility] Last Admin: 04/03/22 08:07 Dose: 0.5 mg Digoxin (Digoxin 0.125 Mg Tablet) 0.125 mg PO DAILY [facility] Last Admin: 04/03/22 08:10 Dose: 0.125 mg Diltiazem HCl (Diltiazem Hcl Cd 120 Mg Cap.Er.Deg) 120 mg PO DAILY [facility]; Protocol Last Admin: 04/03/22 08:07 Dose: 120 mg Divalproex Sodium (Divalproex Sodium Sprinkles 125 Mg Cap.Dr.Spr) 500 mg PO BID [facility] Last Admin: 04/03/22 08:06 Dose: 500 mg Docusate Sodium (Docusate Sodium 100 Mg Capsule) 200 mg PO BEDTIME [facility] Last Admin: 04/02/22 21:08 Dose: 200 mg Fenofibrate (Fenofibrate 160 Mg Tablet) 160 mg PO DAILY [facility] Last Admin: 04/03/22 08:22 Dose: 160 mg Levothyroxine Sodium (Levothyroxine Sodium 125 Mcg Tablet) 125 mcg PO DAILY@0600 [facility] Last Admin: 04/03/22 06:03 Dose: 125 mcg Magnesium Hydroxide (Milk Of Magnesia 30 Ml Oral.Susp) 30 ml PO DAILY PRN PRN Reason: Constipation Metformin HCl (Metformin Hcl 500 Mg Tablet) 500 mg PO BIDWM [facility] Last Admin: 04/03/22 08:08 Dose: 500 mg Metoprolol Tartrate (Metoprolol Tartrate 50 Mg Tablet) 50 mg PO BID [facility]; Protocol Last Admin: 04/03/22 08:24 Dose: 50 mg Nystatin (Nystatin Powder 15 Gm Bottle) 1 appl TOPICAL BID [facility]; Protocol Last Admin: 04/03/22 09:56 Dose: 1 appl Perphenazine (Perphenazine 8 Mg Tablet) 8 mg PO DAILY [facility] Last Admin: 04/03/22 08:06 Dose: 8 mg Perphenazine (Perphenazine 8 Mg Tablet) 16 mg PO BEDTIME [facility] Last Admin: 04/02/22 21:09 Dose: 16 mg Risperidone (Risperidone 2 Mg Tablet) 4 mg PO BID [facility] Last Admin: 04/03/22 08:05 Dose: 4 mg Senna/Docusate Sodium (Sennosides/Docusate Sodium Tablet) 1 tab PO BEDTIME PRN PRN Reason: Constipation Trazodone HCl (Trazodone Hcl 50 Mg Tablet) 50 mg PO BEDTIME PRN PRN Reason: Insomnia Last Admin: 04/01/22 22:22 Dose: 50 mg Vitamin D (Cholecalciferol (Vitamin D3) 10 Mcg Tablet) 10 mcg PO DAILY [facility] Last Admin: 04/03/22 08:07 Dose: 10 mcg Allergies Allergies Allergy/AdvReac Type Severity Reaction Status Date / Time aspirin Allergy Unknown Verified 03/26/22 20:21 ciprofloxacin [From Cipro] Allergy Gastrointestinal Verified 03/26/22 20:21 Upset ibuprofen Allergy Unknown Verified 03/26/22 20:21 Latex, Natural Rubber Allergy Hives Verified 03/26/22 20:21 NSAIDS (Non-Steroidal Allergy Unknown Verified 03/26/22 20:21 Anti-Inflamma omeprazole [From Prilosec] Allergy Unknown Verified 03/26/22 20:22 ondansetron [From Zofran] Allergy Unknown Verified 03/26/22 20:22 Penicillins Allergy Unknown Verified 03/26/22 20:21 Sulfa (Sulfonamide Allergy Gastrointestinal Verified 03/26/22 20:21 Antibiotics) Upset Assessment & Plan Assessment & Plan (1) Schizoaffective disorder, bipolar type: Status: Acute Code(s): F25.0 - Schizoaffective disorder, bipolar type Plan Ms. Pollock is a 76 year-old woman with hx of schizoaffective disorder brought [facility] due to increase agitation, aggression towards staff there which appears to be prompted by underlying paranoia. Pt presents as dysphoric, labile, anxious. We discussed risks, benefits and alternative treatment options. More collateral information from her OP providers may be required. Pt currently on 2 antipsychotics, perphenazine and risperidone. Depakote was added while in ED- currently 250mg po TID- will check levels. Added clonazepam for anxiety. Pt has eaton- please obtain copy PLAN 1. Admit to S1, CV, 15 minutes checks for safety 2. continue current medications, clonazepam added, 3. OBtain collateral information 4. Aftercare planning. 5. Depakote level For Monday. 6. Increase Depakote up to a 1000 mg per day 04/02: no changes 04/03: no changes I spent minutes with the patient and/or on the patient floor today, greater than?50% of which was spent counseling/coordinating care. Patient educated on: other Reason for contiued inpatient stay Substantial Risk for: inability to function, rapid decompensation and med/psych decompensation
[2022-04-03 19:51] VITALS: BP 141/77; PULSE 105; RESP 18; TEMP 36.5; O2SAT 95
[2022-04-03] MEDS: Perphenazine 8 MG TABLET 16 MG PO (19:53)
[2022-04-03] MEDS: Docusate Sodium 100 MG CAPSULE 200 MG PO (19:53)
[2022-04-03] MEDS: Atorvastatin Calcium 20 MG TABLET PO (19:54)
[2022-04-03 20:16] LABS: Glucose, Whole Blood 141 mg/dL (60-115)
[2022-04-04] MEDS: Acetaminophen 325 MG TABLET 650 MG PO ×2 (00:11→22:07)
[2022-04-04] MEDS: traZODone HCL 50 MG TABLET PO (00:13)
[2022-04-04] MEDS: Levothyroxine Sodium 125 MCG TABLET PO (04:48)
[2022-04-04 06:00] VITALS: BP 119/54; PULSE 86; RESP 17; TEMP 36.1; O2SAT 96
[2022-04-04] MEDS: risperiDONE 2 MG TABLET 4 MG PO ×2 (09:00→20:46)
[2022-04-04] MEDS: Metoprolol Tartrate 50 MG TABLET PO ×2 (09:01→20:46)
[2022-04-04] MEDS: metFORMIN HCl 500 MG TABLET PO ×2 (09:01→17:04)
[2022-04-04] MEDS: Digoxin 0.125 MG TABLET PO (09:01)
[2022-04-04] MEDS: dilTIAZem HCL CD 120 MG CAP.ER.DEG PO (09:01)
[2022-04-04] MEDS: Fenofibrate 160 MG TABLET PO (09:01)
[2022-04-04] MEDS: Apixaban 5 MG TABLET PO ×2 (09:01→20:46)
[2022-04-04] MEDS: clonazePAM 0.5 MG TABLET PO ×2 (09:01→20:46)
[2022-04-04] MEDS: Perphenazine 8 MG TABLET PO (09:01)
[2022-04-04] MEDS: Divalproex Sodium Sprinkles 125 MG CAP.DR.SPR 500 MG PO ×2 (09:01→20:46)
[2022-04-04] MEDS: Cholecalciferol (Vitamin D3) 10 MCG TABLET PO (09:02)
--- NOTE | 2022-04-04 16:23 | HO.PSYCHPN ---
Subjective Subjective Date of Service: 04/04/22 Reason For Visit: Schizoaffective Disorder Subjective Notes: Conditional Voluntary Interim History: The nursing staff reported the patient has been fully compliant with treatment. Her Depakote level was 63 at a 1000 mg. On interview the patient was on her bed, sleeping pleasantly, she a walk-in said that she was doing fine. Still will level mood Mental Status Exam Mental Status Exam Patient Appearance: Appropriate Patient Orientation: Person Level of Consciousness: Awake Patient Behavior: Passive Mood Description: Labile Affect Description: Labile Patient Cognition Impaired: Yes Ability to Follow Directions: Fair Speech Pattern: Clear Hallucinations: Auditory Delusions: Paranoid Ideation Thought Process: Distracted Thought Content: positive for [place] and positive for Poverty of Content Judgement: Poor Diagnostics Vital Signs (24Hr): Vital Signs - 24 hr 04/03/22 19:51 04/04/22 06:00 Temperature 97.7 F 97.0 F Pulse Rate 105 H 86 Respiratory Rate 18 17 Blood Pressure 141/77 H 119/54 L Pulse Oximetry 95 96 Oxygen Delivery Method Room Air Room Air BMI result Body Mass Index 31.1 Labs Results: 04/01/22 09:38 04/01/22 09:38 Labs: Laboratory Results - last 48 hr 04/02/22 04/03/22 04/03/22 21:04 07:52 20:11 POC Glucose 127 H 127 H 141 H Valproic Acid 04/04/22 10:34 POC Glucose Valproic Acid 63.0 Medications Medications Current Medications Acetaminophen (Acetaminophen 325 Mg Tablet) 650 mg PO Q6H PRN PRN Reason: Headache/Pain Mild Scale (1-3) Last Admin: 04/04/22 00:11 Dose: 650 mg Al Hydroxide/Mg Hydroxide (Magnesium Hydrox/Alum Hydrox 30 Ml Oral.Susp) 30 ml PO Q6H PRN PRN Reason: Heartburn/Nausea Last Admin: 03/28/22 02:06 Dose: 30 ml Apixaban (Apixaban 5 Mg Tablet) 5 mg PO BID [facility] Last Admin: 04/04/22 09:01 Dose: 5 mg Artificial Tears (Artificial Tears 15 Ml Drops) 1 drop EYE-BOTH Q4H PRN PRN Reason: Dry Eyes Last Admin: 03/27/22 21:19 Dose: 1 drop Atorvastatin Calcium (Atorvastatin Calcium 20 Mg Tablet) 20 mg PO BEDTIME [facility] Last Admin: 04/03/22 19:54 Dose: 20 mg Bisacodyl (Bisacodyl 10 Mg Supp.Rect) 10 mg IN DAILY PRN PRN Reason: Constipation Bismuth Subsalicylate (Bismuth Subsalicylate 262 Mg Tablet) 524 mg PO QID PRN PRN Reason: Indigestion Clonazepam (Clonazepam 0.5 Mg Tablet) 0.5 mg PO BID [facility] Last Admin: 04/04/22 09:01 Dose: 0.5 mg Digoxin (Digoxin 0.125 Mg Tablet) 0.125 mg PO DAILY [facility] Last Admin: 04/04/22 09:01 Dose: 0.125 mg Diltiazem HCl (Diltiazem Hcl Cd 120 Mg Cap.Er.Deg) 120 mg PO DAILY [facility]; Protocol Last Admin: 04/04/22 09:01 Dose: 120 mg Divalproex Sodium (Divalproex Sodium Sprinkles 125 Mg Cap.Dr.Spr) 500 mg PO BID [facility] Last Admin: 04/04/22 09:01 Dose: 500 mg Docusate Sodium (Docusate Sodium 100 Mg Capsule) 200 mg PO BEDTIME [facility] Last Admin: 04/03/22 19:53 Dose: 200 mg Fenofibrate (Fenofibrate 160 Mg Tablet) 160 mg PO DAILY [facility] Last Admin: 04/04/22 09:01 Dose: 160 mg Levothyroxine Sodium (Levothyroxine Sodium 125 Mcg Tablet) 125 mcg PO DAILY@0600 [facility] Last Admin: 04/04/22 04:48 Dose: 125 mcg Magnesium Hydroxide (Milk Of Magnesia 30 Ml Oral.Susp) 30 ml PO DAILY PRN PRN Reason: Constipation Metformin HCl (Metformin Hcl 500 Mg Tablet) 500 mg PO BIDWM [facility] Last Admin: 04/04/22 09:01 Dose: 500 mg Metoprolol Tartrate (Metoprolol Tartrate 50 Mg Tablet) 50 mg PO BID [facility]; Protocol Last Admin: 04/04/22 09:01 Dose: 50 mg Nystatin (Nystatin Powder 15 Gm Bottle) 1 appl TOPICAL BID [facility]; Protocol Last Admin: 04/04/22 09:02 Dose: Not Given Perphenazine (Perphenazine 8 Mg Tablet) 8 mg PO DAILY [facility] Last Admin: 04/04/22 09:01 Dose: 8 mg Perphenazine (Perphenazine 8 Mg Tablet) 16 mg PO BEDTIME [facility] Last Admin: 04/03/22 19:53 Dose: 16 mg Risperidone (Risperidone 2 Mg Tablet) 4 mg PO BID [facility] Last Admin: 04/04/22 09:00 Dose: 4 mg Senna/Docusate Sodium (Sennosides/Docusate Sodium Tablet) 1 tab PO BEDTIME PRN PRN Reason: Constipation Trazodone HCl (Trazodone Hcl 50 Mg Tablet) 50 mg PO BEDTIME PRN PRN Reason: Insomnia Last Admin: 04/04/22 00:13 Dose: 50 mg Vitamin D (Cholecalciferol (Vitamin D3) 10 Mcg Tablet) 10 mcg PO DAILY [facility] Last Admin: 04/04/22 09:02 Dose: 10 mcg Allergies Allergies Allergy/AdvReac Type Severity Reaction Status Date / Time aspirin Allergy Unknown Verified 03/26/22 20:21 ciprofloxacin [From Cipro] Allergy Gastrointestinal Verified 03/26/22 20:21 Upset ibuprofen Allergy Unknown Verified 03/26/22 20:21 Latex, Natural Rubber Allergy Hives Verified 03/26/22 20:21 NSAIDS (Non-Steroidal Allergy Unknown Verified 03/26/22 20:21 Anti-Inflamma omeprazole [From Prilosec] Allergy Unknown Verified 03/26/22 20:22 ondansetron [From Zofran] Allergy Unknown Verified 03/26/22 20:22 Penicillins Allergy Unknown Verified 03/26/22 20:21 Sulfa (Sulfonamide Allergy Gastrointestinal Verified 03/26/22 20:21 Antibiotics) Upset Assessment & Plan Assessment & Plan (1) Schizoaffective disorder, bipolar type: Status: Acute Code(s): F25.0 - Schizoaffective disorder, bipolar type Plan Ms. Pollock is a 76 year-old woman with hx of schizoaffective disorder brought from [facility] to [facility] due to increase agitation, aggression towards staff there which appears to be prompted by underlying paranoia. Pt presents as dysphoric, labile, anxious. We discussed risks, benefits and alternative treatment options. More collateral information from her OP providers may be required. Pt currently on 2 antipsychotics, perphenazine and risperidone. Depakote was added while in ED- currently 250mg po TID- will check levels. Added clonazepam for anxiety. Pt has eaton- please obtain copy PLAN 1. Admit to S1, CV, 15 minutes checks for safety 2. continue current medications, clonazepam added, 3. OBtain collateral information 4. Aftercare planning. 5. Keep currently on meds and see how she is doing. If her mood remains labile increase up to 1500 mg a day of Depakote 04/02: no changes I spent __20____ minutes with the patient and/or on the patient floor today, greater than?50% of which was spent counseling/coordinating care. Reason for contiued inpatient stay Substantial Risk for: inability to function, rapid decompensation and med/psych decompensation
[2022-04-04 18:00] VITALS: BP 111/56; PULSE 85; RESP 16; TEMP 36.6; O2SAT 95
[2022-04-04] MEDS: Docusate Sodium 100 MG CAPSULE 200 MG PO (20:46)
[2022-04-04] MEDS: Perphenazine 8 MG TABLET 16 MG PO (20:46)
[2022-04-04] MEDS: Atorvastatin Calcium 20 MG TABLET PO (20:46)
[2022-04-04 22:02] LABS: Glucose, Whole Blood 132 mg/dL (60-115)
[2022-04-05] MEDS: Magnesium Hydrox/Alum Hydrox 30 ML ORAL.SUSP PO (02:58)
[2022-04-05] MEDS: Acetaminophen 325 MG TABLET 650 MG PO ×3 (04:57→23:44)
[2022-04-05] MEDS: Levothyroxine Sodium 125 MCG TABLET PO (05:13)
[2022-04-05 07:30] VITALS: BP 135/60; PULSE 75; RESP 16; TEMP 36.4; O2SAT 92
[2022-04-05] MEDS: Divalproex Sodium Sprinkles 125 MG CAP.DR.SPR 500 MG PO ×2 (08:30→23:14)
[2022-04-05] MEDS: risperiDONE 2 MG TABLET 4 MG PO ×2 (08:30→23:15)
[2022-04-05] MEDS: clonazePAM 0.5 MG TABLET PO ×2 (08:32→23:15)
[2022-04-05] MEDS: Metoprolol Tartrate 50 MG TABLET PO ×2 (08:32→23:15)
[2022-04-05] MEDS: Fenofibrate 160 MG TABLET PO (08:33)
[2022-04-05] MEDS: Perphenazine 8 MG TABLET PO (08:33)
[2022-04-05] MEDS: dilTIAZem HCL CD 120 MG CAP.ER.DEG PO (08:33)
[2022-04-05] MEDS: Digoxin 0.125 MG TABLET PO (08:33)
[2022-04-05] MEDS: metFORMIN HCl 500 MG TABLET PO ×2 (08:34→16:24)
[2022-04-05] MEDS: Apixaban 5 MG TABLET PO ×2 (08:34→23:15)
[2022-04-05] MEDS: Cholecalciferol (Vitamin D3) 10 MCG TABLET PO (08:35)
[2022-04-05 10:12] LABS: Glucose, Whole Blood 144 mg/dL (60-115)
--- NOTE | 2022-04-05 17:03 | P.PNPSI_ITS ---
Subjective Subjective Date of Service: 04/05/22 Reason For Visit: Schizoaffective Disorder Subjective Notes: Conditional Voluntary Interim History: The nursing staff reported the patient has been on her bed most of the time. She remains with level mood with episodes of crying that stops easily was her needs are full field. On interview the patient reported that she lost that her mother recently. I explained her that as far as we know, her mother several years ago and she should not be crying then later she stated that she was hungry so after having a small snack she was pleasantly confused. Mental Status Exam Mental Status Exam Patient Appearance: Well Grooomed Patient Orientation: Person Level of Consciousness: Awake Patient Behavior: Guarded Mood Description: Withdrawn Affect Description: Labile Patient Cognition Impaired: Yes Ability to Follow Directions: Fair Speech Pattern: Clear Hallucinations: None Delusions: Paranoid Ideation and Bizarre Thought Process: Illogical Thought Content: positive for Poverty of Content and positive for Disorganized Judgement: Fair Diagnostics Vital Signs (24Hr): Vital Signs - 24 hr 04/04/22 18:00 04/05/22 07:30 Temperature 97.8 F 97.5 F Pulse Rate 85 75 Respiratory Rate 16 16 Blood Pressure 111/56 L 135/60 Pulse Oximetry 95 92 Oxygen Delivery Method Room Air Room Air BMI result Body Mass Index 31.1 Labs Results: 04/01/22 09:38 04/01/22 09:38 Labs: Laboratory Results - last 48 hr 04/03/22 04/04/22 04/04/22 20:11 10:34 21:53 POC Glucose 141 H 132 H Valproic Acid 63.0 04/05/22 10:07 POC Glucose 144 H Valproic Acid Medications Medications Current Medications Acetaminophen (Acetaminophen 325 Mg Tablet) 650 mg PO Q6H PRN PRN Reason: Headache/Pain Mild Scale (1-3) Last Admin: 04/05/22 16:24 Dose: 650 mg Al Hydroxide/Mg Hydroxide (Magnesium Hydrox/Alum Hydrox 30 Ml Oral.Susp) 30 ml PO Q6H PRN PRN Reason: Heartburn/Nausea Last Admin: 04/05/22 02:58 Dose: 30 ml Apixaban (Apixaban 5 Mg Tablet) 5 mg PO BID [facility] Last Admin: 04/05/22 08:34 Dose: 5 mg Artificial Tears (Artificial Tears 15 Ml Drops) 1 drop EYE-BOTH Q4H PRN PRN Reason: Dry Eyes Last Admin: 03/27/22 21:19 Dose: 1 drop Atorvastatin Calcium (Atorvastatin Calcium 20 Mg Tablet) [address] [facility] Last Admin: 04/04/22 20:46 Dose: 20 mg Bisacodyl (Bisacodyl 10 Mg Supp.Rect) 10 mg [place] DAILY PRN PRN Reason: Constipation Bismuth Subsalicylate (Bismuth Subsalicylate 262 Mg Tablet) 524 mg PO QID PRN PRN Reason: Indigestion Clonazepam (Clonazepam 0.5 Mg Tablet) 0.[address] [facility] Last Admin: 04/05/22 08:32 Dose: 0.5 mg Digoxin (Digoxin 0.125 Mg Tablet) 0.[address] [facility] Last Admin: 04/05/22 08:33 Dose: 0.125 mg Diltiazem HCl (Diltiazem Hcl Cd 120 Mg Cap.Er.Deg) [address] [facility]; Protocol Last Admin: 04/05/22 08:33 Dose: 120 mg Divalproex Sodium (Divalproex Sodium Sprinkles 125 Mg Cap.Dr.Spr) [address] [facility] Last Admin: 04/05/22 08:30 Dose: 500 mg Docusate Sodium (Docusate Sodium 100 Mg Capsule) [address] [facility] Last Admin: 04/04/22 20:46 Dose: 200 mg Fenofibrate (Fenofibrate 160 Mg Tablet) [address] [facility] Last Admin: 04/05/22 08:33 Dose: 160 mg Levothyroxine Sodium (Levothyroxine Sodium 125 Mcg Tablet) 125 mcg PO DAILY@0600 [facility] Last Admin: 04/05/22 05:13 Dose: 125 mcg Magnesium Hydroxide (Milk Of Magnesia 30 Ml Oral.Susp) 30 ml PO DAILY PRN PRN Reason: Constipation Metformin HCl (Metformin Hcl 500 Mg Tablet) [address] [facility] Last Admin: 04/05/22 16:24 Dose: 500 mg Metoprolol Tartrate (Metoprolol Tartrate 50 Mg Tablet) [address] [facility]; Protocol Last Admin: 04/05/22 08:32 Dose: 50 mg Nystatin (Nystatin Powder 15 Gm Bottle) [address] [facility]; Protocol Last Admin: 04/05/22 11:25 Dose: Not Given Perphenazine (Perphenazine 8 Mg Tablet) [address] [facility] Last Admin: 04/05/22 08:33 Dose: 8 mg Perphenazine (Perphenazine 8 Mg Tablet) [address] [facility] Last Admin: 04/04/22 20:46 Dose: 16 mg Risperidone (Risperidone 2 Mg Tablet) [address] [facility] Last Admin: 04/05/22 08:30 Dose: 4 mg Senna/Docusate Sodium (Sennosides/Docusate Sodium Tablet) 1 tab PO BEDTIME PRN PRN Reason: Constipation Trazodone HCl (Trazodone Hcl 50 Mg Tablet) 50 mg PO BEDTIME PRN PRN Reason: Insomnia Last Admin: 04/04/22 00:13 Dose: 50 mg Vitamin D (Cholecalciferol (Vitamin D3) 10 Mcg Tablet) [address] [facility] Last Admin: 04/05/22 08:35 Dose: 10 mcg Allergies Allergies Allergy/AdvReac Type Severity Reaction Status Date / Time aspirin Allergy Unknown Verified 03/26/22 20:21 ciprofloxacin [From Cipro] Allergy Gastrointestinal Verified 03/26/22 20:21 Upset ibuprofen Allergy Unknown Verified 03/26/22 20:21 Latex, Natural Rubber Allergy Hives Verified 03/26/22 20:21 NSAIDS (Non-Steroidal Allergy Unknown Verified 03/26/22 20:21 Anti-Inflamma omeprazole [From Prilosec] Allergy Unknown Verified 03/26/22 20:22 ondansetron [From Zofran] Allergy Unknown Verified 03/26/22 20:22 Penicillins Allergy Unknown Verified 03/26/22 20:21 Sulfa (Sulfonamide Allergy Gastrointestinal Verified 03/26/22 20:21 Antibiotics) Upset Assessment & Plan Assessment & Plan (1) Schizoaffective disorder, bipolar type: Status: Acute Code(s): F25.0 - Schizoaffective disorder, bipolar type Plan Ms. Pollock is a 76 year-old woman with hx of schizoaffective disorder [facility] due to increase agitation, aggression towards staff there which appears to be prompted by underlying paranoia. Pt presents as dysphoric, labile, anxious. We discussed risks, benefits and alternative treatment options. More collateral information from her OP providers may be required. Pt currently on 2 antipsychotics, perphenazine and risperidone. Depakote was added while in ED- currently 250mg po TID- will check levels. Added clonazepam for anxiety. Pt has uma- please obtain copy PLAN 1. Admit to S1, CV, 15 minutes checks for safety 2. continue current medications, clonazepam added, 3. OBtain collateral information 4. Aftercare planning. 5. Depakote level For Monday. 6. Increase Depakote up to a 1000 mg per day , this moment, her Depakote level is therapeutic I spent ___20___ minutes with the patient and/or on the patient floor today, greater than?50% of which was spent counseling/coordinating care. Reason for contiued inpatient stay Substantial Risk for: inability to function, rapid decompensation and med/psych decompensation
[2022-04-05] MEDS: Docusate Sodium 100 MG CAPSULE 200 MG PO (23:14)
[2022-04-05] MEDS: Atorvastatin Calcium 20 MG TABLET PO (23:15)
[2022-04-05] MEDS: Perphenazine 8 MG TABLET 16 MG PO (23:15)
[2022-04-05 23:20] VITALS: BP 130/70; PULSE 80; RESP 20; TEMP 36.4; O2SAT 93
[2022-04-05 23:43] LABS: Glucose, Whole Blood 131 mg/dL (60-115)
[2022-04-06] MEDS: Levothyroxine Sodium 125 MCG TABLET PO (06:39)
[2022-04-06 08:52] VITALS: BP 127/77; PULSE 93; RESP 18; TEMP 36.4; O2SAT 95
[2022-04-06] MEDS: Acetaminophen 325 MG TABLET 650 MG PO ×3 (10:15→22:31)
[2022-04-06] MEDS: clonazePAM 0.5 MG TABLET PO (10:15)
[2022-04-06] MEDS: Divalproex Sodium Sprinkles 125 MG CAP.DR.SPR 500 MG PO ×2 (10:15→20:18)
[2022-04-06] MEDS: Fenofibrate 160 MG TABLET PO (10:15)
[2022-04-06] MEDS: dilTIAZem HCL CD 120 MG CAP.ER.DEG PO (10:16)
[2022-04-06] MEDS: Digoxin 0.125 MG TABLET PO (10:16)
[2022-04-06] MEDS: Metoprolol Tartrate 50 MG TABLET PO ×2 (10:16→20:18)
[2022-04-06] MEDS: Apixaban 5 MG TABLET PO ×2 (10:16→20:17)
[2022-04-06] MEDS: Perphenazine 8 MG TABLET PO (10:16)
[2022-04-06] MEDS: risperiDONE 2 MG TABLET 4 MG PO ×2 (10:16→20:20)
[2022-04-06] MEDS: metFORMIN HCl 500 MG TABLET PO ×2 (10:16→16:22)
[2022-04-06] MEDS: Cholecalciferol (Vitamin D3) 10 MCG TABLET PO (10:18)
[2022-04-06 10:43] LABS: Glucose, Whole Blood 120 mg/dL (60-115)
--- NOTE | 2022-04-06 15:06 | P.PNPSI_ITS ---
Subjective Subjective Date of Service: 04/06/22 Reason For Visit: Schizoaffective Disorder Subjective Notes: Conditional Voluntary Interim History: the nursing staff reported the patient has been compliant with treatment., she remains labile but easily redirectable. Mental Status Exam Mental Status Exam Patient Appearance: Appropriate Patient Orientation: Person Level of Consciousness: Awake Patient Behavior: Cooperative Mood Description: Appropriate Affect Description: Labile Patient Cognition Impaired: Yes Ability to Follow Directions: Good Speech Pattern: Clear Hallucinations: None Delusions: Paranoid Ideation and Grandiose Thought Process: Distracted Thought Content: positive for [place]overty of Content Judgement: Fair Diagnostics Vital Signs (24Hr): Vital Signs - 24 hr 04/05/22 23:20 04/06/22 08:52 Temperature 97.5 F 97.6 F Pulse Rate 80 93 Respiratory Rate 20 18 Blood Pressure 130/70 127/77 Pulse Oximetry 93 95 Oxygen Delivery Method Room Air Room Air BMI result Body Mass Index 31.1 Labs Results: 04/01/22 09:38 04/01/22 09:38 Labs: Laboratory Results - last 48 hr 04/04/22 04/05/22 04/05/22 21:53 10:07 23:21 POC Glucose 132 H 144 H 131 H 04/06/22 10:24 POC Glucose 120 H Medications Medications Current Medications Acetaminophen (Acetaminophen 325 Mg Tablet) 650 mg PO Q6H PRN PRN Reason: Headache/Pain Mild Scale (1-3) Last Admin: 04/06/22 10:15 Dose: 650 mg Al Hydroxide/Mg Hydroxide (Magnesium Hydrox/Alum Hydrox 30 Ml Oral.Susp) 30 ml PO Q6H PRN PRN Reason: Heartburn/Nausea Last Admin: 04/05/22 02:58 Dose: 30 ml Apixaban (Apixaban 5 Mg Tablet) 5 mg PO BID [facility] Last Admin: 04/06/22 10:16 Dose: 5 mg Artificial Tears (Artificial Tears 15 Ml Drops) 1 drop EYE-BOTH Q4H PRN PRN Reason: Dry Eyes Last Admin: 03/27/22 21:19 Dose: 1 drop Atorvastatin Calcium (Atorvastatin Calcium 20 Mg Tablet) 20 mg PO BEDTIME [facility] Last Admin: 04/05/22 23:15 Dose: 20 mg Bisacodyl (Bisacodyl 10 Mg Supp.Rect) 10 mg [place] DAILY PRN PRN Reason: Constipation Bismuth Subsalicylate (Bismuth Subsalicylate 262 Mg Tablet) 524 mg PO QID PRN PRN Reason: Indigestion Digoxin (Digoxin 0.125 Mg Tablet) 0.125 mg PO DAILY [facility] Last Admin: 04/06/22 10:16 Dose: 0.125 mg Diltiazem HCl (Diltiazem Hcl Cd 120 Mg Cap.Er.Deg) 120 mg PO DAILY [facility]; Protocol Last Admin: 04/06/22 10:16 Dose: 120 mg Divalproex Sodium (Divalproex Sodium Sprinkles 125 Mg Cap.Dr.Spr) 500 mg PO BID [facility] Last Admin: 04/06/22 10:15 Dose: 500 mg Docusate Sodium (Docusate Sodium 100 Mg Capsule) 200 mg PO BEDTIME [facility] Last Admin: 04/05/22 23:14 Dose: 200 mg Fenofibrate (Fenofibrate 160 Mg Tablet) 160 mg PO DAILY [facility] Last Admin: 04/06/22 10:15 Dose: 160 mg Levothyroxine Sodium (Levothyroxine Sodium 125 Mcg Tablet) 125 mcg PO DAILY@0600 [facility] Last Admin: 04/06/22 06:39 Dose: 125 mcg Magnesium Hydroxide (Milk Of Magnesia 30 Ml Oral.Susp) 30 ml PO DAILY PRN PRN Reason: Constipation Metformin HCl (Metformin Hcl 500 Mg Tablet) 500 mg PO BIDWM [facility] Last Admin: 04/06/22 10:16 Dose: 500 mg Metoprolol Tartrate (Metoprolol Tartrate 50 Mg Tablet) 50 mg PO BID [facility]; Protocol Last Admin: 04/06/22 10:16 Dose: 50 mg Nystatin (Nystatin Powder 15 Gm Bottle) 1 appl TOPICAL BID [facility]; Protocol Last Admin: 04/06/22 10:18 Dose: Not Given Perphenazine (Perphenazine 8 Mg Tablet) 8 mg PO DAILY [facility] Last Admin: 04/06/22 10:16 Dose: 8 mg Perphenazine (Perphenazine 8 Mg Tablet) 16 mg PO BEDTIME [facility] Last Admin: 04/05/22 23:15 Dose: 16 mg Risperidone (Risperidone 2 Mg Tablet) 4 mg PO BID [facility] Last Admin: 04/06/22 10:16 Dose: 4 mg Senna/Docusate Sodium (Sennosides/Docusate Sodium Tablet) 1 tab PO BEDTIME PRN PRN Reason: Constipation Trazodone HCl (Trazodone Hcl 50 Mg Tablet) 50 mg PO BEDTIME PRN PRN Reason: Insomnia Last Admin: 04/04/22 00:13 Dose: 50 mg Vitamin D (Cholecalciferol (Vitamin D3) 10 Mcg Tablet) 10 mcg PO DAILY [facility] Last Admin: 04/06/22 10:18 Dose: 10 mcg Allergies Allergies Allergy/AdvReac Type Severity Reaction Status Date / Time aspirin Allergy Unknown Verified 03/26/22 20:21 ciprofloxacin [From Cipro] Allergy Gastrointestinal Verified 03/26/22 20:21 Upset ibuprofen Allergy Unknown Verified 03/26/22 20:21 Latex, Natural Rubber Allergy Hives Verified 03/26/22 20:21 NSAIDS (Non-Steroidal Allergy Unknown Verified 03/26/22 20:21 Anti-Inflamma omeprazole [From Prilosec] Allergy Unknown Verified 03/26/22 20:22 ondansetron [From Zofran] Allergy Unknown Verified 03/26/22 20:22 Penicillins Allergy Unknown Verified 03/26/22 20:21 Sulfa (Sulfonamide Allergy Gastrointestinal Verified 03/26/22 20:21 Antibiotics) Upset Assessment & Plan Assessment & Plan (1) Schizoaffective disorder, bipolar type: Status: Acute Code(s): F25.0 - Schizoaffective disorder, bipolar type Plan Ms. Pollock is a 76 year-old woman with hx of schizoaffective disorder brought [facility] due to increase agitation, aggression towards staff there which appears to be prompted by underlying paranoia. Pt pr esents as dysphoric, labile, anxious. We discussed risks, benefits and alternative treatment options. More collateral information from her OP providers may be required. Pt currently on 2 antipsychotics, perphenazine and risperidone. Depakote was added while in ED- currently 250mg po TID- will check levels. Added clonazepam for anxiety. Pt has eaton- please obtain copy PLAN 1. Admit to S1, CV, 15 minutes checks for safety 2. continue current medications, clonazepam added, 3. OBtain collateral information 4. Aftercare planning. 5. Depakote level For Monday. 6. Increase Depakote up to a 1000 mg per day , this moment, her Depakote level is therapeutic I spent ___20___ minutes with the patient and/or on the patient floor today, greater than?50% of which was spent counseling/coordinating care. Reason for contiued inpatient stay Substantial Risk for: inability to function, rapid decompensation and med/psych decompensation
[2022-04-06 18:00] VITALS: BP 141/83; PULSE 104; RESP 18; TEMP 36.6; O2SAT 94
[2022-04-06] MEDS: Atorvastatin Calcium 20 MG TABLET PO (20:17)
[2022-04-06] MEDS: Docusate Sodium 100 MG CAPSULE 200 MG PO (20:18)
[2022-04-06] MEDS: Perphenazine 8 MG TABLET 16 MG PO (20:20)
[2022-04-06] MEDS: Trolamine Salicylate 10 % Cream 85 GM TUBE 1 APPL TOPICAL (20:57)
[2022-04-06 21:12] LABS: Glucose, Whole Blood 167 mg/dL (60-115)
[2022-04-06] MEDS: traZODone HCL 50 MG TABLET PO (21:41)
[2022-04-06] MEDS: Nystatin Powder 15 GM BOTTLE 1 APPL TOPICAL (21:41)
[2022-04-07] MEDS: Acetaminophen 325 MG TABLET 650 MG PO ×3 (05:07→23:31)
[2022-04-07] MEDS: Levothyroxine Sodium 125 MCG TABLET PO (05:07)
[2022-04-07 06:00] VITALS: BP 132/59; PULSE 94; RESP 17; TEMP 36.3; O2SAT 94
[2022-04-07] MEDS: metFORMIN HCl 500 MG TABLET PO ×2 (11:56→17:06)
[2022-04-07] MEDS: Divalproex Sodium Sprinkles 125 MG CAP.DR.SPR 500 MG PO ×2 (11:57→21:10)
[2022-04-07] MEDS: risperiDONE 2 MG TABLET 4 MG PO (11:57)
[2022-04-07] MEDS: Digoxin 0.125 MG TABLET PO (11:57)
[2022-04-07] MEDS: dilTIAZem HCL CD 120 MG CAP.ER.DEG PO (11:58)
[2022-04-07] MEDS: Metoprolol Tartrate 50 MG TABLET PO ×2 (11:58→21:10)
[2022-04-07] MEDS: Perphenazine 8 MG TABLET PO (11:58)
[2022-04-07] MEDS: Apixaban 5 MG TABLET PO ×2 (11:58→21:09)
[2022-04-07] MEDS: Fenofibrate 160 MG TABLET PO (11:59)
[2022-04-07] MEDS: Cholecalciferol (Vitamin D3) 10 MCG TABLET PO (11:59)
--- NOTE | 2022-04-07 14:38 | HO.PSYCHPN ---
Subjective Subjective Date of Service: 04/07/22 Reason For Visit: Schizoaffective Disorder Subjective Notes: Conditional Voluntary Interim History: The nursing staff reported the patient remains isolative in her room, she comes out only for medications and meals. She has not participating in any groups. On interview the patient remains dysphoric and she wants to go back home. I explained that we are applying for new facilities. She does not want to go back to her previous SNF. Mental Status Exam Mental Status Exam Patient Appearance: Appropriate Patient Orientation: Person Level of Consciousness: Awake Patient Behavior: Guarded and Passive Mood Description: Withdrawn Affect Description: Constricted Patient Cognition Impaired: Yes Ability to Follow Directions: Good Speech Pattern: Clear Hallucinations: Auditory Delusions: Paranoid Ideation Thought Process: Distracted Judgement: Fair Diagnostics Vital Signs (24Hr): Vital Signs - 24 hr 04/06/22 18:00 04/07/22 06:00 Temperature 97.9 F 97.3 F Pulse Rate 104 H 94 Respiratory Rate 18 17 Blood Pressure 141/83 H 132/59 L Pulse Oximetry 94 94 Oxygen Delivery Method Room Air Room Air BMI result Body Mass Index 31.1 Labs Results: 04/01/22 09:38 04/01/22 09:38 Labs: Laboratory Results - last 48 hr 04/05/22 04/06/22 04/06/22 23:21 10:24 21:07 POC Glucose 131 H 120 H 167 H Medications Medications Current Medications Acetaminophen (Acetaminophen 325 Mg Tablet) 650 mg PO Q6H PRN PRN Reason: Headache/Pain Mild Scale (1-3) Last Admin: 04/07/22 05:07 Dose: 650 mg Al Hydroxide/Mg Hydroxide (Magnesium Hydrox/Alum Hydrox 30 Ml Oral.Susp) 30 ml PO Q6H PRN PRN Reason: Heartburn/Nausea Last Admin: 04/05/22 02:58 Dose: 30 ml Apixaban (Apixaban 5 Mg Tablet) 5 mg PO BID [facility] Last Admin: 04/07/22 11:58 Dose: 5 mg Artificial Tears (Artificial Tears 15 Ml Drops) 1 drop EYE-BOTH Q4H PRN PRN Reason: Dry Eyes Last Admin: 03/27/22 21:19 Dose: 1 drop Atorvastatin Calcium (Atorvastatin Calcium 20 Mg Tablet) 20 mg PO BEDTIME [facility] Last Admin: 04/06/22 20:17 Dose: 20 mg Bisacodyl (Bisacodyl 10 Mg Supp.Rect) 10 mg [place] DAILY PRN PRN Reason: Constipation Bismuth Subsalicylate (Bismuth Subsalicylate 262 Mg Tablet) 524 mg PO QID PRN PRN Reason: Indigestion Digoxin (Digoxin 0.125 Mg Tablet) 0.125 mg PO DAILY [facility] BEDS AT [facility] Last Admin: 04/07/22 11:57 Dose: 0.125 mg Diltiazem HCl (Diltiazem Hcl Cd 120 Mg Cap.Er.Deg) 120 mg PO DAILY [facility] 234 BEDS AT THE [facility]; Protocol Last Admin: 04/07/22 11:58 Dose: 120 mg Divalproex Sodium (Divalproex Sodium Sprinkles 125 Mg Cap.Dr.Spr) 500 mg PO BID [facility] 234 BEDS AT THE [facility] Last Admin: 04/07/22 11:57 Dose: 500 mg Docusate Sodium (Docusate Sodium 100 Mg Capsule) 200 mg PO BEDTIME [facility]S INCLUDE 234 BEDS AT THE [facility] Last Admin: 04/06/22 20:18 Dose: 200 mg Fenofibrate (Fenofibrate 160 Mg Tablet) 160 mg PO DAILY [facility]CLUDE 234 BEDS AT THE [facility] Last Admin: 04/07/22 11:59 Dose: 160 mg Levothyroxine Sodium (Levothyroxine Sodium 125 Mcg Tablet) 125 mcg PO DAILY@0600 [facility]CLUDE 234 BEDS AT THE [facility] Last Admin: 04/07/22 05:07 Dose: 125 mcg Magnesium Hydroxide (Milk Of Magnesia 30 Ml Oral.Susp) 30 ml PO DAILY PRN PRN Reason: Constipation Metformin HCl (Metformin Hcl 500 Mg Tablet) 500 mg PO BIDWM COUNTS INCLUDE 234 BEDS AT THE [facility] Last Admin: 04/07/22 11:56 Dose: 500 mg Metoprolol Tartrate (Metoprolol Tartrate 50 Mg Tablet) 50 mg PO BID [facility] 234 BEDS AT [facility]; Protocol Last Admin: 04/07/22 11:58 Dose: 50 mg Nystatin (Nystatin Powder 15 Gm Bottle) 1 appl TOPICAL BID [facility]CLUDE 234 BEDS AT THE [facility]; Protocol Last Admin: 04/06/22 21:41 Dose: 1 appl Perphenazine (Perphenazine 8 Mg Tablet) 8 mg PO DAILY [facility]CLUDE 234 BEDS AT THE [facility] Last Admin: 04/07/22 11:58 Dose: 8 mg Perphenazine (Perphenazine 8 Mg Tablet) 16 mg PO BEDTIME [facility]CLUDE 234 BEDS AT THE [facility] Last Admin: 04/06/22 20:20 Dose: 16 mg Risperidone (Risperidone 2 Mg Tablet) 4 mg PO BID [facility] 234 BEDS AT THE [facility] Last Admin: 04/07/22 11:57 Dose: 4 mg Senna/Docusate Sodium (Sennosides/Docusate Sodium Tablet) 1 tab PO BEDTIME PRN PRN Reason: Constipation Trazodone HCl (Trazodone Hcl 50 Mg Tablet) 50 mg PO BEDTIME PRN PRN Reason: Insomnia Last Admin: 04/06/22 21:41 Dose: 50 mg Trolamine Salicylate (Trolamine Salicylate 10 % Cream 85 Gm Tube) 1 appl TOPICAL BID PRN PRN Reason: Pain, Mild (Pain Scale 1-3) Last Admin: 04/06/22 20:57 Dose: 1 appl Vitamin D (Cholecalciferol (Vitamin D3) 10 Mcg Tablet) 10 mcg PO DAILY [facility] Last Admin: 04/07/22 11:59 Dose: 10 mcg Allergies Allergies Allergy/AdvReac Type Severity Reaction Status Date / Time aspirin Allergy Unknown Verified 03/26/22 20:21 ciprofloxacin [From Cipro] Allergy Gastrointestinal Verified 03/26/22 20:21 Upset ibuprofen Allergy Unknown Verified 03/26/22 20:21 Latex, Natural Rubber Allergy Hives Verified 03/26/22 20:21 NSAIDS (Non-Steroidal Allergy Unknown Verified 03/26/22 20:21 Anti-Inflamma omeprazole [From Prilosec] Allergy Unknown Verified 03/26/22 20:22 ondansetron [From Zofran] Allergy Unknown Verified 03/26/22 20:22 Penicillins Allergy Unknown Verified 03/26/22 20:21 Sulfa (Sulfonamide Allergy Gastrointestinal Verified 03/26/22 20:21 Antibiotics) Upset Assessment & Plan Assessment & Plan (1) Schizoaffective disorder, bipolar type: Status: Acute Code(s): F25.0 - Schizoaffective disorder, bipolar type Plan Ms. Pollock is a 76 year-old woman with hx of schizoaffective disorder brought from [facility] to [facility] due to increase agitation, aggression towards staff there which appears to be prompted by underlying paranoia. Pt presents as dysphoric, labile, anxious. We discussed risks, benefits and alternative treatment options. More collateral information from her OP providers may be required. Pt currently on 2 antipsychotics, perphenazine and risperidone. Depakote was added while in ED- currently 250mg po TID- will check levels. Added clonazepam for anxiety. Pt has eaton- please obtain copy PLAN 1. Admit to S1, CV, 15 minutes checks for safety 2. continue current medications, clonazepam added, 3. OBtain collateral information 4. Aftercare planning. 5. Change Risperdal to 2 mg p.o. q.a.m. and 6 q.h.s. since she looks over-sedated during the day I spent ___20___ minutes with the patient and/or on the patient floor today, greater than?50% of which was spent counseling/coordinating care. Reason for contiued inpatient stay Substantial Risk for: inability to function, rapid decompensation and med/psych decompensation
[2022-04-07 15:02] LABS: Glucose, Whole Blood 127 mg/dL (60-115)
[2022-04-07 18:00] VITALS: BP 108/56; PULSE 76; RESP 17; TEMP 36.6; O2SAT 92
[2022-04-07] MEDS: Atorvastatin Calcium 20 MG TABLET PO (21:09)
[2022-04-07] MEDS: Docusate Sodium 100 MG CAPSULE 200 MG PO (21:10)
[2022-04-07] MEDS: Nystatin Powder 15 GM BOTTLE 1 APPL TOPICAL (21:10)
[2022-04-07] MEDS: risperiDONE 3 MG TABLET 6 MG PO (21:11)
[2022-04-07] MEDS: Perphenazine 8 MG TABLET 16 MG PO (21:11)
[2022-04-07 21:33] LABS: Glucose, Whole Blood 106 mg/dL (60-115)
[2022-04-08] MEDS: Levothyroxine Sodium 125 MCG TABLET PO (05:17)
[2022-04-08] MEDS: Acetaminophen 325 MG TABLET 650 MG PO ×2 (05:21→16:18)
[2022-04-08 07:25] VITALS: BP 165/74; PULSE 100; RESP 16; TEMP 36.4; O2SAT 91
[2022-04-08] MEDS: Divalproex Sodium Sprinkles 125 MG CAP.DR.SPR 500 MG PO ×2 (07:55→20:33)
[2022-04-08] MEDS: Apixaban 5 MG TABLET PO ×2 (07:55→20:33)
[2022-04-08] MEDS: Fenofibrate 160 MG TABLET PO (07:55)
[2022-04-08] MEDS: metFORMIN HCl 500 MG TABLET PO ×2 (07:56→16:18)
[2022-04-08] MEDS: Digoxin 0.125 MG TABLET PO (07:56)
[2022-04-08] MEDS: dilTIAZem HCL CD 120 MG CAP.ER.DEG PO (07:56)
[2022-04-08] MEDS: risperiDONE 2 MG TABLET PO (07:56)
[2022-04-08] MEDS: Perphenazine 8 MG TABLET PO (07:56)
[2022-04-08] MEDS: Metoprolol Tartrate 50 MG TABLET PO ×2 (07:56→20:33)
[2022-04-08] MEDS: Cholecalciferol (Vitamin D3) 10 MCG TABLET PO (07:57)
[2022-04-08 08:26] LABS: Creatinine Clr Calc Pharmacy 72.8; Estimated Glomerular Filt Rate > 60
[2022-04-08] MEDS: Nystatin Powder 15 GM BOTTLE 1 APPL TOPICAL (10:50)
--- NOTE | 2022-04-08 14:07 | HO.PSYCHPN ---
Subjective Subjective Date of Service: 04/08/22 Reason For Visit: Schizoaffective Disorder Subjective Notes: Conditional Voluntary Interim History: The nursing staff reported the patient has been compliant with treatment. She cries at times whenever she wants her needs fulfilled but she still is easily redirectable. Yesterday we change her total Risperdal to 2 mg in the morning and 6 at night with the possibility to start low morning since there is no clinical changes with a higher dose Mental Status Exam Mental Status Exam Patient Appearance: Well Grooomed Patient Orientation: Person and Situation Level of Consciousness: Awake Patient Behavior: Cooperative Mood Description: Labile Affect Description: Constricted Patient Cognition Impaired: Yes Ability to Follow Directions: Good Speech Pattern: Clear Hallucinations: Auditory Delusions: Paranoid Ideation Thought Process: Illogical Thought Content: positive for [place] and positive for Poverty of Content Judgement: Fair Diagnostics Vital Signs (24Hr): Vital Signs - 24 hr 04/07/22 18:00 04/08/22 07:25 Temperature 97.9 F 97.5 F Pulse Rate 76 100 Respiratory Rate 17 16 Blood Pressure 108/56 L 165/74 H Pulse Oximetry 92 91 L Oxygen Delivery Method Room Air Room Air BMI result Body Mass Index 31.1 Labs Results: 04/01/22 09:38 04/08/22 07:45 Labs: Laboratory Results - last 48 hr 04/06/22 04/07/22 04/07/22 21:07 14:56 21:24 Creatinine Estim Creat Clear Calc Estimated GFR POC Glucose 167 H 127 H 106 04/08/22 07:45 Creatinine 0.77 Estim Creat Clear Calc 72.8 Estimated GFR > 60 POC Glucose Medications Medications Current Medications Acetaminophen (Acetaminophen 325 Mg Tablet) 650 mg PO Q6H PRN PRN Reason: Headache/Pain Mild Scale (1-3) Last Admin: 04/08/22 05:21 Dose: 650 mg Al Hydroxide/Mg Hydroxide (Magnesium Hydrox/Alum Hydrox 30 Ml Oral.Susp) 30 ml PO Q6H PRN PRN Reason: Heartburn/Nausea Last Admin: 04/05/22 02:58 Dose: 30 ml Apixaban (Apixaban 5 Mg Tablet) 5 mg PO BID [facility] Last Admin: 04/08/22 07:55 Dose: 5 mg Artificial Tears (Artificial Tears 15 Ml Drops) 1 drop EYE-BOTH Q4H PRN PRN Reason: Dry Eyes Last Admin: 03/27/22 21:19 Dose: 1 drop Atorvastatin Calcium (Atorvastatin Calcium 20 Mg Tablet) 20 mg PO BEDTIME [facility] Last Admin: 04/07/22 21:09 Dose: 20 mg Bisacodyl (Bisacodyl 10 Mg Supp.Rect) 10 mg [place] DAILY PRN PRN Reason: Constipation Bismuth Subsalicylate (Bismuth Subsalicylate 262 Mg Tablet) 524 mg PO QID PRN PRN Reason: Indigestion Digoxin (Digoxin 0.125 Mg Tablet) 0.125 mg PO DAILY [facility] Last Admin: 04/08/22 07:56 Dose: 0.125 mg Diltiazem HCl (Diltiazem Hcl Cd 120 Mg Cap.Er.Deg) 120 mg PO DAILY [facility]; Protocol Last Admin: 04/08/22 07:56 Dose: 120 mg Divalproex Sodium (Divalproex Sodium Sprinkles 125 Mg Cap.Dr.Spr) 500 mg PO BID [facility] Last Admin: 04/08/22 07:55 Dose: 500 mg Docusate Sodium (Docusate Sodium 100 Mg Capsule) 200 mg PO BEDTIME [facility] Last Admin: 04/07/22 21:10 Dose: 200 mg Fenofibrate (Fenofibrate 160 Mg Tablet) 160 mg PO DAILY [facility] Last Admin: 04/08/22 07:55 Dose: 160 mg Levothyroxine Sodium (Levothyroxine Sodium 125 Mcg Tablet) 125 mcg PO DAILY@0600 [facility] Last Admin: 04/08/22 05:17 Dose: 125 mcg Magnesium Hydroxide (Milk Of Magnesia 30 Ml Oral.Susp) 30 ml PO DAILY PRN PRN Reason: Constipation Metformin HCl (Metformin Hcl 500 Mg Tablet) 500 mg PO BIDWM [facility] Last Admin: 04/08/22 07:56 Dose: 500 mg Metoprolol Tartrate (Metoprolol Tartrate 50 Mg Tablet) 50 mg PO BID [facility]; Protocol Last Admin: 04/08/22 07:56 Dose: 50 mg Nystatin (Nystatin Powder 15 Gm Bottle) 1 appl TOPICAL BID [facility]; Protocol Last Admin: 04/08/22 10:50 Dose: 1 appl Perphenazine (Perphenazine 8 Mg Tablet) 8 mg PO DAILY [facility] Last Admin: 04/08/22 07:56 Dose: 8 mg Perphenazine (Perphenazine 8 Mg Tablet) 16 mg PO BEDTIME [facility] Last Admin: 04/07/22 21:11 Dose: 16 mg Risperidone (Risperidone 3 Mg Tablet) 6 mg PO BEDTIME [facility] Last Admin: 04/07/22 21:11 Dose: 6 mg Risperidone (Risperidone 2 Mg Tablet) 2 mg PO DAILY [facility] Last Admin: 04/08/22 07:56 Dose: 2 mg Senna/Docusate Sodium (Sennosides/Docusate Sodium Tablet) 1 tab PO BEDTIME PRN PRN Reason: Constipation Trazodone HCl (Trazodone Hcl 50 Mg Tablet) 50 mg PO BEDTIME PRN PRN Reason: Insomnia Last Admin: 04/06/22 21:41 Dose: 50 mg Trolamine Salicylate (Trolamine Salicylate 10 % Cream 85 Gm Tube) 1 appl TOPICAL BID PRN PRN Reason: Pain, Mild (Pain Scale 1-3) Last Admin: 04/06/22 20:57 Dose: 1 appl Vitamin D (Cholecalciferol (Vitamin D3) 10 Mcg Tablet) 10 mcg PO DAILY [facility] Last Admin: 04/08/22 07:57 Dose: 10 mcg Allergies Allergies Allergy/AdvReac Type Severity Reaction Status Date / Time aspirin Allergy Unknown Verified 03/26/22 20:21 ciprofloxacin [From Cipro] Allergy Gastrointestinal Verified 03/26/22 20:21 Upset ibuprofen Allergy Unknown Verified 03/26/22 20:21 Latex, Natural Rubber Allergy Hives Verified 03/26/22 20:21 NSAIDS (Non-Steroidal Allergy Unknown Verified 03/26/22 20:21 Anti-Inflamma omeprazole [From Prilosec] Allergy Unknown Verified 03/26/22 20:22 ondansetron [From Zofran] Allergy Unknown Verified 03/26/22 20:22 Penicillins Allergy Unknown Verified 03/26/22 20:21 Sulfa (Sulfonamide Allergy Gastrointestinal Verified 03/26/22 20:21 Antibiotics) Upset Assessment & Plan Assessment & Plan (1) Schizoaffective disorder, bipolar type: Status: Acute Code(s): F25.0 - Schizoaffective disorder, bipolar type Plan Ms. Pollock is a 76 year-old woman with hx of schizoaffective disorder brought [facility] due to increase agitation, aggression towards staff there which appears to be prompted by underlying paranoia. Pt presents as dysphoric, labile, anxious. We discussed risks, benefits and alternative treatment options. More collateral information from her OP providers may be required. Pt currently on 2 antipsychotics, perphenazine and risperidone. Depakote was added while in ED- currently 250mg po TID- will check levels. Added clonazepam for anxiety. Pt has eaton- please obtain copy PLAN 1. Admit to S1, CV, 15 minutes checks for safety 2. continue current medications, clonazepam added, 3. OBtain collateral information 4. Aftercare planning. 5. Change Risperdal to 2 mg p.o. q.a.m. and 6 q.h.s. since she looks over-sedated during the day I spent ___20___ minutes with the patient and/or on the patient floor today, greater than?50% of which was spent counseling/coordinating care. Reason for contiued inpatient stay Substantial Risk for: inability to function, rapid decompensation and med/psych decompensation
[2022-04-08 20:05] VITALS: BP 131/73; PULSE 97; RESP 17; TEMP 36; O2SAT 97
[2022-04-08] MEDS: risperiDONE 3 MG TABLET 6 MG PO (20:32)
[2022-04-08] MEDS: Docusate Sodium 100 MG CAPSULE 200 MG PO (20:32)
[2022-04-08] MEDS: Perphenazine 8 MG TABLET 16 MG PO (20:33)
[2022-04-08] MEDS: Atorvastatin Calcium 20 MG TABLET PO (20:33)
[2022-04-08] MEDS: Trolamine Salicylate 10 % Cream 85 GM TUBE 1 APPL TOPICAL (20:35)
[2022-04-09] MEDS: Acetaminophen 325 MG TABLET 650 MG PO ×4 (00:59→23:33)
[2022-04-09] MEDS: traZODone HCL 50 MG TABLET PO ×2 (01:00→20:38)
[2022-04-09 06:00] VITALS: BP 137/62; PULSE 71; RESP 17; TEMP 36.9; O2SAT 93
[2022-04-09] MEDS: Levothyroxine Sodium 125 MCG TABLET PO (06:45)
[2022-04-09] MEDS: Digoxin 0.125 MG TABLET PO (10:55)
[2022-04-09] MEDS: Divalproex Sodium Sprinkles 125 MG CAP.DR.SPR 500 MG PO ×2 (10:55→20:37)
[2022-04-09] MEDS: dilTIAZem HCL CD 120 MG CAP.ER.DEG PO (10:55)
[2022-04-09] MEDS: Perphenazine 8 MG TABLET PO (10:55)
[2022-04-09] MEDS: Apixaban 5 MG TABLET PO ×2 (10:55→20:37)
[2022-04-09] MEDS: Cholecalciferol (Vitamin D3) 10 MCG TABLET PO (10:56)
[2022-04-09] MEDS: risperiDONE 2 MG TABLET PO (10:56)
[2022-04-09] MEDS: metFORMIN HCl 500 MG TABLET PO ×2 (10:56→17:48)
[2022-04-09] MEDS: Metoprolol Tartrate 50 MG TABLET PO ×2 (10:56→20:37)
[2022-04-09] MEDS: Fenofibrate 160 MG TABLET PO (10:56)
[2022-04-09 20:15] VITALS: BP 130/84; PULSE 87; RESP 17; TEMP 36.3; O2SAT 95
[2022-04-09] MEDS: risperiDONE 3 MG TABLET 6 MG PO (20:37)
[2022-04-09] MEDS: Docusate Sodium 100 MG CAPSULE 200 MG PO (20:37)
[2022-04-09] MEDS: Perphenazine 8 MG TABLET 16 MG PO (20:37)
[2022-04-09] MEDS: Atorvastatin Calcium 20 MG TABLET PO (20:37)
[2022-04-09] MEDS: Trolamine Salicylate 10 % Cream 85 GM TUBE 1 APPL TOPICAL (20:54)
--- NOTE | 2022-04-09 22:00 | HO.PSYCHPN ---
Subjective Subjective Date of Service: 04/09/22 Reason For Visit: Schizoaffective Disorder Interim History: Periods of anxiety irritability dysphoria complaints of pain Mental Status Exam Mental Status Exam Patient Appearance: Well Grooomed Patient Orientation: Person and Situation Level of Consciousness: Awake Patient Behavior: Cooperative Mood Description: Labile Affect Description: Constricted Patient Cognition Impaired: Yes Ability to Follow Directions: Good Speech Pattern: Clear Hallucinations: Auditory Delusions: Paranoid Ideation Thought Process: Illogical Thought Content: positive for [place] and positive for Poverty of Content Judgement: Fair Diagnostics Vital Signs (24Hr): Vital Signs - 24 hr 04/09/22 06:00 Temperature 98.4 F Pulse Rate 71 Respiratory Rate 17 Blood Pressure 137/62 Pulse Oximetry 93 Oxygen Delivery Method Room Air BMI result Body Mass Index 31.1 Labs Results: 04/01/22 09:38 04/08/22 07:45 Labs: Laboratory Results - last 48 hr 04/08/22 07:45 Creatinine 0.77 Estim Creat Clear Calc 72.8 Estimated GFR > 60 Medications Medications Current Medications Acetaminophen (Acetaminophen 325 Mg Tablet) 650 mg PO Q6H PRN PRN Reason: Headache/Pain Mild Scale (1-3) Last Admin: 04/09/22 17:48 Dose: 650 mg Al Hydroxide/Mg Hydroxide (Magnesium Hydrox/Alum Hydrox 30 Ml Oral.Susp) 30 ml PO Q6H PRN PRN Reason: Heartburn/Nausea Last Admin: 04/05/22 02:58 Dose: 30 ml Apixaban (Apixaban 5 Mg Tablet) 5 mg PO BID [facility] Last Admin: 04/09/22 20:37 Dose: 5 mg Artificial Tears (Artificial Tears 15 Ml Drops) 1 drop EYE-BOTH Q4H PRN PRN Reason: Dry Eyes Last Admin: 03/27/22 21:19 Dose: 1 drop Atorvastatin Calcium (Atorvastatin Calcium 20 Mg Tablet) 20 mg PO BEDTIME [facility] Last Admin: 04/09/22 20:37 Dose: 20 mg Bisacodyl (Bisacodyl 10 Mg Supp.Rect) 10 mg [place] DAILY PRN PRN Reason: Constipation Bismuth Subsalicylate (Bismuth Subsalicylate 262 Mg Tablet) 524 mg PO QID PRN PRN Reason: Indigestion Digoxin (Digoxin 0.125 Mg Tablet) 0.125 mg PO DAILY [facility] Last Admin: 04/09/22 10:55 Dose: 0.125 mg Diltiazem HCl (Diltiazem Hcl Cd 120 Mg Cap.Er.Deg) 120 mg PO DAILY [facility]; Protocol Last Admin: 04/09/22 10:55 Dose: 120 mg Divalproex Sodium (Divalproex Sodium Sprinkles 125 Mg Cap.Dr.Spr) 500 mg PO BID [facility] Last Admin: 04/09/22 20:37 Dose: 500 mg Docusate Sodium (Docusate Sodium 100 Mg Capsule) 200 mg PO BEDTIME [facility] Last Admin: 04/09/22 20:37 Dose: 200 mg Fenofibrate (Fenofibrate 160 Mg Tablet) 160 mg PO DAILY [facility] Last Admin: 04/09/22 10:56 Dose: 160 mg Levothyroxine Sodium (Levothyroxine Sodium 125 Mcg Tablet) 125 mcg PO DAILY@0600 [facility] Last Admin: 04/09/22 06:45 Dose: 125 mcg Magnesium Hydroxide (Milk Of Magnesia 30 Ml Oral.Susp) 30 ml PO DAILY PRN PRN Reason: Constipation Metformin HCl (Metformin Hcl 500 Mg Tablet) 500 mg PO BIDWM [facility] Last Admin: 04/09/22 17:48 Dose: 500 mg Metoprolol Tartrate (Metoprolol Tartrate 50 Mg Tablet) 50 mg PO BID [facility]; Protocol Last Admin: 04/09/22 20:37 Dose: 50 mg Nystatin (Nystatin Powder 15 Gm Bottle) 1 appl TOPICAL BID [facility]; Protocol Last Admin: 04/09/22 10:56 Dose: Not Given Perphenazine (Perphenazine 8 Mg Tablet) 8 mg PO DAILY [facility] Last Admin: 04/09/22 10:55 Dose: 8 mg Perphenazine (Perphenazine 8 Mg Tablet) 16 mg PO BEDTIME [facility] Last Admin: 04/09/22 20:37 Dose: 16 mg Risperidone (Risperidone 3 Mg Tablet) 6 mg PO BEDTIME [facility] Last Admin: 04/09/22 20:37 Dose: 6 mg Risperidone (Risperidone 2 Mg Tablet) 2 mg PO DAILY [facility] Last Admin: 04/09/22 10:56 Dose: 2 mg Senna/Docusate Sodium (Sennosides/Docusate Sodium Tablet) 1 tab PO BEDTIME PRN PRN Reason: Constipation Trazodone HCl (Trazodone Hcl 50 Mg Tablet) 50 mg PO BEDTIME PRN PRN Reason: Insomnia Last Admin: 04/09/22 20:38 Dose: 50 mg Trolamine Salicylate (Trolamine Salicylate 10 % Cream 85 Gm Tube) 1 appl TOPICAL BID PRN PRN Reason: Pain, Mild (Pain Scale 1-3) Last Admin: 04/09/22 20:54 Dose: 1 appl Vitamin D (Cholecalciferol (Vitamin D3) 10 Mcg Tablet) 10 mcg PO DAILY [facility] Last Admin: 04/09/22 10:56 Dose: 10 mcg Allergies Allergies Allergy/AdvReac Type Severity Reaction Status Date / Time aspirin Allergy Unknown Verified 03/26/22 20:21 ciprofloxacin [From Cipro] Allergy Gastrointestinal Verified 03/26/22 20:21 Upset ibuprofen Allergy Unknown Verified 03/26/22 20:21 Latex, Natural Rubber Allergy Hives Verified 03/26/22 20:21 NSAIDS (Non-Steroidal Allergy Unknown Verified 03/26/22 20:21 Anti-Inflamma omeprazole [From Prilosec] Allergy Unknown Verified 03/26/22 20:22 ondansetron [From Zofran] Allergy Unknown Verified 03/26/22 20:22 Penicillins Allergy Unknown Verified 03/26/22 20:21 Sulfa (Sulfonamide Allergy Gastrointestinal Verified 03/26/22 20:21 Antibiotics) Upset Assessment & Plan Assessment & Plan (1) Schizoaffective disorder, bipolar type: Status: Acute Code(s): F25.0 - Schizoaffective disorder, bipolar type Plan Ms. Pollock is a 76 year-old woman with hx of schizoaffective disorder brought [facility] to [facility] due to increase agitation, aggression towards staff there which appears to be prompted by underlying paranoia. Pt presents as dysphoric, labile, anxious. We discussed risks, benefits and alternative treatment options. More collateral information from her OP providers may be required. Pt currently on 2 antipsychotics, perphenazine and risperidone. Depakote was added while in ED- currently 250mg po TID- will check levels. Added clonazepam for anxiety. Pt has eaton- please obtain copy PLAN 1. Admit to S1, CV, 15 minutes checks for safety 2. continue current medications, clonazepam added, 3. OBtain collateral information 4. Aftercare planning. Obsess and plan for 04/09/2022 Patient seen in psychiatric follow-up. Patient anxious dysphoric labile. Some improved ability for from prior to admission Some suspiciousness I spent minutes with the patient and/or on the patient floor today, greater than?50% of which was spent counseling/coordinating care. Reason for contiued inpatient stay Substantial Risk for: harm to others, inability to function and rapid decompensation
[2022-04-10] MEDS: Levothyroxine Sodium 125 MCG TABLET PO (04:20)
[2022-04-10 06:00] VITALS: BP 144/74; PULSE 99; RESP 16; TEMP 36.1; O2SAT 94
[2022-04-10] MEDS: Perphenazine 8 MG TABLET PO (09:02)
[2022-04-10] MEDS: Divalproex Sodium Sprinkles 125 MG CAP.DR.SPR 500 MG PO ×2 (09:02→20:27)
[2022-04-10] MEDS: Metoprolol Tartrate 50 MG TABLET PO ×2 (09:02→20:28)
[2022-04-10] MEDS: Fenofibrate 160 MG TABLET PO (09:02)
[2022-04-10] MEDS: Apixaban 5 MG TABLET PO ×2 (09:03→20:26)
[2022-04-10] MEDS: dilTIAZem HCL CD 120 MG CAP.ER.DEG PO (09:03)
[2022-04-10] MEDS: Nystatin Powder 15 GM BOTTLE 1 APPL TOPICAL ×2 (09:03→20:28)
[2022-04-10] MEDS: risperiDONE 2 MG TABLET PO (09:03)
[2022-04-10] MEDS: metFORMIN HCl 500 MG TABLET PO ×2 (09:03→18:07)
[2022-04-10] MEDS: Cholecalciferol (Vitamin D3) 10 MCG TABLET PO (09:03)
[2022-04-10] MEDS: Trolamine Salicylate 10 % Cream 85 GM TUBE 1 APPL TOPICAL ×2 (09:03→20:25)
[2022-04-10] MEDS: Digoxin 0.125 MG TABLET PO (09:03)
[2022-04-10] MEDS: Bismuth Subsalicylate 262 MG TABLET 524 MG PO (12:32)
[2022-04-10] MEDS: Acetaminophen 325 MG TABLET 650 MG PO ×2 (13:53→21:00)
[2022-04-10 18:00] VITALS: BP 150/104; PULSE 100; RESP 16; TEMP 36.6; O2SAT 93
[2022-04-10] MEDS: Atorvastatin Calcium 20 MG TABLET PO (20:26)
[2022-04-10] MEDS: Docusate Sodium 100 MG CAPSULE 200 MG PO (20:27)
[2022-04-10] MEDS: risperiDONE 3 MG TABLET 6 MG PO (20:28)
[2022-04-10] MEDS: Perphenazine 8 MG TABLET 16 MG PO (20:28)
--- NOTE | 2022-04-10 20:46 | P.PNPSI_ITS ---
Subjective Subjective Date of Service: 04/10/22 Reason For Visit: Schizoaffective Disorder Subjective Notes: [place] Order and Conditional Voluntary Interim History: The patient appears depressed anxious in the milieu tearful at times healing complains of pain on her right side appears to be hip ankle no gross paranoia noted Medication Compliance: Yes Review of Systems Complains of pain may be contributing to mood and tearfulness Medical Review of Systems: unchanged Mental Status Exam Mental Status Exam Patient Appearance: Well Grooomed Patient Orientation: Person and Situation Level of Consciousness: Awake Patient Behavior: Cooperative and Crying Mood Description: Constricted, Labile and Sad Affect Description: Constricted and Apprehensive Patient Cognition Impaired: Yes Ability to Follow Directions: Fair Speech Pattern: Clear Memory Description: Episodic Impaired Hallucinations: Auditory Delusions: Paranoid Ideation Thought Process: Illogical Thought Content: positive for [place] and positive for Poverty of Content Depressive Symptoms: Increased Anxiety Judgement: Fair Diagnostics Vital Signs (24Hr): Vital Signs - 24 hr 04/10/22 06:00 Temperature 97.0 F Pulse Rate 99 Respiratory Rate 16 Blood Pressure 144/74 H Pulse Oximetry 94 Oxygen Delivery Method Room Air BMI result Body Mass Index 31.1 Labs Results: 04/01/22 09:38 04/08/22 07:45 Imaging Radiology Impressions: ITS Impressions Ankle X-Ray 04/10/22 14:59 IMPRESSION: Changes relating to surgical fixation of a lateral malleolus fracture with lateral fixation plate and screws. There is questionable small amount of lucency about the 2 most distal screws, uncertain if this is artifactual. Comparison radiographs are unavailable at this time. There is mild soft tissue edema overlying the lateral malleolus and there is no acute fracture identified. Hip/Pelvis X-Ray 04/10/22 14:59 IMPRESSION: Unremarkable AP pelvis and right hip. Medications Medications Current Medications Acetaminophen (Acetaminophen 325 Mg Tablet) 650 mg PO Q6H PRN PRN Reason: Headache/Pain Mild Scale (1-3) Last Admin: 04/10/22 13:53 Dose: 650 mg Al Hydroxide/Mg Hydroxide (Magnesium Hydrox/Alum Hydrox 30 Ml Oral.Susp) 30 ml PO Q6H PRN PRN Reason: Heartburn/Nausea Last Admin: 04/05/22 02:58 Dose: 30 ml Apixaban (Apixaban 5 Mg Tablet) 5 mg PO BID [facility] Last Admin: 04/10/22 20:26 Dose: 5 mg Artificial Tears (Artificial Tears 15 Ml Drops) 1 drop EYE-BOTH Q4H PRN PRN Reason: Dry Eyes Last Admin: 03/27/22 21:19 Dose: 1 drop Atorvastatin Calcium (Atorvastatin Calcium 20 Mg Tablet) 20 mg PO BEDTIME [facility] Last Admin: 04/10/22 20:26 Dose: 20 mg Bisacodyl (Bisacodyl 10 Mg Supp.Rect) 10 mg [place] DAILY PRN PRN Reason: Constipation Bismuth Subsalicylate (Bismuth Subsalicylate 262 Mg Tablet) 524 mg PO QID PRN PRN Reason: Indigestion Last Admin: 04/10/22 12:32 Dose: 524 mg Digoxin (Digoxin 0.125 Mg Tablet) 0.125 mg PO DAILY [facility] Last Admin: 04/10/22 09:03 Dose: 0.125 mg Diltiazem HCl (Diltiazem Hcl Cd 120 Mg Cap.Er.Deg) 120 mg PO DAILY [facility]; Protocol Last Admin: 04/10/22 09:03 Dose: 120 mg Divalproex Sodium (Divalproex Sodium Sprinkles 125 Mg Cap.Dr.Spr) 500 mg PO BID [facility] Last Admin: 04/10/22 20:27 Dose: 500 mg Docusate Sodium (Docusate Sodium 100 Mg Capsule) 200 mg PO BEDTIME [facility] Last Admin: 04/10/22 20:27 Dose: 200 mg Fenofibrate (Fenofibrate 160 Mg Tablet) 160 mg PO DAILY [facility] Last Admin: 04/10/22 09:02 Dose: 160 mg Levothyroxine Sodium (Levothyroxine Sodium 125 Mcg Tablet) 125 mcg PO DAILY@0600 [facility] Last Admin: 04/10/22 04:20 Dose: 125 mcg Magnesium Hydroxide (Milk Of Magnesia 30 Ml Oral.Susp) 30 ml PO DAILY PRN PRN Reason: Constipation Metformin HCl (Metformin Hcl 500 Mg Tablet) 500 mg PO BIDWM [facility] Last Admin: 04/10/22 18:07 Dose: 500 mg Metoprolol Tartrate (Metoprolol Tartrate 50 Mg Tablet) 50 mg PO BID [facility]; Pr otocol Last Admin: 04/10/22 20:28 Dose: 50 mg Nystatin (Nystatin Powder 15 Gm Bottle) 1 appl TOPICAL BID [facility]; Protocol Last Admin: 04/10/22 20:28 Dose: 1 appl Perphenazine (Perphenazine 8 Mg Tablet) 8 mg PO DAILY [facility] Last Admin: 04/10/22 09:02 Dose: 8 mg Perphenazine (Perphenazine 8 Mg Tablet) 16 mg PO BEDTIME [facility] Last Admin: 04/10/22 20:28 Dose: 16 mg Risperidone (Risperidone 3 Mg Tablet) 6 mg PO BEDTIME [facility] Last Admin: 04/10/22 20:28 Dose: 6 mg Risperidone (Risperidone 2 Mg Tablet) 2 mg PO DAILY [facility] Last Admin: 04/10/22 09:03 Dose: 2 mg Senna/Docusate Sodium (Sennosides/Docusate Sodium Tablet) 1 tab PO BEDTIME PRN PRN Reason: Constipation Trazodone HCl (Trazodone Hcl 50 Mg Tablet) 50 mg PO BEDTIME PRN PRN Reason: Insomnia Last Admin: 04/09/22 20:38 Dose: 50 mg Trolamine Salicylate (Trolamine Salicylate 10 % Cream 85 Gm Tube) 1 appl TOPICAL BID PRN PRN Reason: Pain, Mild (Pain Scale 1-3) Last Admin: 04/10/22 20:25 Dose: 1 appl Vitamin D (Cholecalciferol (Vitamin D3) 10 Mcg Tablet) 10 mcg PO DAILY [facility] Last Admin: 04/10/22 09:03 Dose: 10 mcg Allergies Allergies Allergy/AdvReac Type Severity Reaction Status Date / Time aspirin Allergy Unknown Verified 03/26/22 20:21 ciprofloxacin [From Cipro] Allergy Gastrointestinal Verified 03/26/22 20:21 Upset ibuprofen Allergy Unknown Verified 03/26/22 20:21 Latex, Natural Rubber Allergy Hives Verified 03/26/22 20:21 NSAIDS (Non-Steroidal Allergy Unknown Verified 03/26/22 20:21 Anti-Inflamma omeprazole [From Prilosec] Allergy Unknown Verified 03/26/22 20:22 ondansetron [From Zofran] Allergy Unknown Verified 03/26/22 20:22 Penicillins Allergy Unknown Verified 03/26/22 20:21 Sulfa (Sulfonamide Allergy Gastrointestinal Verified 03/26/22 20:21 Antibiotics) Upset Assessment & Plan Assessment & Plan (1) Schizoaffective disorder, bipolar type: Status: Acute Code(s): F25.0 - Schizoaffective disorder, bipolar type Plan Ms. Pollock is a 76 year-old woman with hx of schizoaffective disorder brought from [facility] to [facility] due to increase agitation, aggression towards staff there which appears to be prompted by underlying paranoia. Pt presents as dysphoric, labile, anxious. We discussed risks, benefits and alternative treatment options. More collateral information from her OP providers may be required. Pt currently on 2 antipsychotics, perphenazine and risperidone. Depakote was added while in ED- currently 250mg po TID- will check levels. Added clonazepam for anxiety. Pt has eaton- please obtain copy PLAN 1. Admit to S1, CV, 15 minutes checks for safety 2. continue current medications, clonazepam added, 3. OBtain collateral information 4. Aftercare planning. Obsess and plan for 04/09/2022 Patient seen in psychiatric follow-up. Patient anxious dysphoric labile. Some improved ability for from prior to admission Some suspiciousness Assessment and plan for 04/10/2022 Patient seen case reviewed with treatment team. Patient continues to complain of pain frequently tearful. Question was on Ultram previously what is reportedly allergic to aspirin and nonsteroidals Tylenol not effective for pain would consider lidocaine patch or Ultram. X-rays of ankle and hip and pelvis ordered. Old injury to ankle with some mild edema patient appears depressed irritable she is on to antipsychotics at relatively high doses unclear benefit. Reported history of schizoaffective disorder might consider antidepressant or antipsychotic agent for bipolar depression I spent minutes with the patient and/or on the patient floor today, greater than?50% of which was spent counseling/coordinating care. Reason for contiued inpatient stay Substantial Risk for: harm to others, inability to function and rapid decompensation
[2022-04-10] MEDS: traZODone HCL 50 MG TABLET PO (21:00)
[2022-04-11] MEDS: traZODone HCL 50 MG TABLET PO (00:48)
[2022-04-11] MEDS: Acetaminophen 325 MG TABLET 650 MG PO ×3 (05:09→21:42)
[2022-04-11] MEDS: Levothyroxine Sodium 125 MCG TABLET PO (05:09)
[2022-04-11 07:20] VITALS: BP 119/61; PULSE 97; RESP 16; TEMP 36.8; O2SAT 94
[2022-04-11] MEDS: Metoprolol Tartrate 50 MG TABLET PO ×2 (08:36→20:31)
[2022-04-11] MEDS: metFORMIN HCl 500 MG TABLET PO ×2 (08:36→20:30)
[2022-04-11] MEDS: Cholecalciferol (Vitamin D3) 10 MCG TABLET PO (08:36)
[2022-04-11] MEDS: Divalproex Sodium Sprinkles 125 MG CAP.DR.SPR 500 MG PO (08:37)
[2022-04-11] MEDS: dilTIAZem HCL CD 120 MG CAP.ER.DEG PO (08:37)
[2022-04-11] MEDS: Apixaban 5 MG TABLET PO ×2 (08:37→20:32)
[2022-04-11] MEDS: Digoxin 0.125 MG TABLET PO (08:37)
[2022-04-11] MEDS: Fenofibrate 160 MG TABLET PO (08:38)
[2022-04-11] MEDS: Perphenazine 8 MG TABLET PO (08:38)
[2022-04-11] MEDS: risperiDONE 2 MG TABLET PO (08:38)
--- NOTE | 2022-04-11 13:21 | P.PNPSI_ITS ---
Subjective Subjective Date of Service: 04/11/22 Reason For Visit: Schizoaffective Disorder Subjective Notes: Conditional Voluntary Interim History: The nursing staff reported that the patient has episodic moments of crying when her needs are not fulfilled. She complained of left hip pain and she was x-rayed with no new findings. The staff has noticed that she has very marked attention seeking behavior. She slept 6 hours last night. On interview the patient reported that she feels sedated so will change her Depakote all at night. Mental Status Exam Mental Status Exam Patient Appearance: Well Grooomed Patient Orientation: Person Level of Consciousness: Awake Patient Behavior: Guarded and Cooperative Mood Description: Calm Affect Description: Labile Patient Cognition Impaired: Yes Ability to Follow Directions: Good Speech Pattern: Clear Hallucinations: None Delusions: Paranoid Ideation Thought Process: Evasive Thought Content: positive for [place] Judgement: Fair Diagnostics Vital Signs (24Hr): Vital Signs - 24 hr 04/10/22 18:00 04/11/22 07:20 Temperature 97.8 F 98.3 F Pulse Rate 100 97 Respiratory Rate 16 16 Blood Pressure 150/104 H 119/61 Pulse Oximetry 93 94 Oxygen Delivery Method Room Air Room Air BMI result Body Mass Index 31.1 Labs Results: 04/01/22 09:38 04/08/22 07:45 Imaging Radiology Impressions: ITS Impressions Ankle X-Ray 04/10/22 14:59 IMPRESSION: Changes relating to surgical fixation of a lateral malleolus fracture with lateral fixation plate and screws. There is questionable small amount of lucency about the 2 most distal screws, uncertain if this is artifactual. Comparison radiographs are unavailable at this time. There is mild soft tissue edema overlying the lateral malleolus and there is no acute fracture identified. Hip/Pelvis X-Ray 04/10/22 14:59 IMPRESSION: Unremarkable AP pelvis and right hip. Medications Medications Current Medications Acetaminophen (Acetaminophen 325 Mg Tablet) 650 mg PO Q6H PRN PRN Reason: Headache/Pain Mild Scale (1-3) Last Admin: 04/11/22 05:09 Dose: 650 mg Al Hydroxide/Mg Hydroxide (Magnesium Hydrox/Alum Hydrox 30 Ml Oral.Susp) 30 ml PO Q6H PRN PRN Reason: Heartburn/Nausea Last Admin: 04/05/22 02:58 Dose: 30 ml Apixaban (Apixaban 5 Mg Tablet) 5 mg PO BID [facility] Last Admin: 04/11/22 08:37 Dose: 5 mg Artificial Tears (Artificial Tears 15 Ml Drops) 1 drop EYE-BOTH Q4H PRN PRN Reason: Dry Eyes Last Admin: 03/27/22 21:19 Dose: 1 drop Atorvastatin Calcium (Atorvastatin Calcium 20 Mg Tablet) 20 mg PO BEDTIME [facility] Last Admin: 04/10/22 20:26 Dose: 20 mg Bisacodyl (Bisacodyl 10 Mg Supp.Rect) 10 mg [place] DAILY PRN PRN Reason: Constipation Bismuth Subsalicylate (Bismuth Subsalicylate 262 Mg Tablet) 524 mg PO QID PRN PRN Reason: Indigestion Last Admin: 04/10/22 12:32 Dose: 524 mg Digoxin (Digoxin 0.125 Mg Tablet) 0.125 mg PO DAILY [facility] Last Admin: 04/11/22 08:37 Dose: 0.125 mg Diltiazem HCl (Diltiazem Hcl Cd 120 Mg Cap.Er.Deg) 120 mg PO DAILY [facility]; Protocol Last Admin: 04/11/22 08:37 Dose: 120 mg Divalproex Sodium (Divalproex Sodium Sprinkles 125 Mg Cap.Dr.Spr) 1,000 mg PO BEDTIME [facility] Docusate Sodium (Docusate Sodium 100 Mg Capsule) 200 mg PO BEDTIME [facility] Last Admin: 04/10/22 20:27 Dose: 200 mg Fenofibrate (Fenofibrate 160 Mg Tablet) 160 mg PO DAILY [facility] Last Admin: 04/11/22 08:38 Dose: 160 mg Levothyroxine Sodium (Levothyroxine Sodium 125 Mcg Tablet) 125 mcg PO DAILY@0600 [facility] Last Admin: 04/11/22 05:09 Dose: 125 mcg Magnesium Hydroxide (Milk Of Magnesia 30 Ml Oral.Susp) 30 ml PO DAILY PRN PRN Reason: Constipation Metformin HCl (Metformin Hcl 500 Mg Tablet) 500 mg PO BIDWM [facility] Last Admin: 04/11/22 08:36 Dose: 500 mg Metoprolol Tartrate (Metoprolol Tartrate 50 Mg Tablet) 50 mg PO BID [facility]; Protocol Last Admin: 04/11/22 08:36 Dose: 50 mg Nystatin (Nystatin Powder 15 Gm Bottle) 1 appl TOPICAL BID [facility]; Protocol Last Admin: 04/11/22 12:35 Dose: Not Given Perphenazine (Perphenazine 8 Mg Tablet) 8 mg PO DAILY [facility] Last Admin: 04/11/22 08:38 Dose: 8 mg Perphenazine (Perphenazine 8 Mg Tablet) 16 mg PO BEDTIME [facility] Last Admin: 04/10/22 20:28 Dose: 16 mg Risperidone (Risperidone 3 Mg Tablet) 6 mg PO BEDTIME [facility] Last Admin: 04/10/22 20:28 Dose: 6 mg Risperidone (Risperidone 2 Mg Tablet) 2 mg PO DAILY [facility] Last Admin: 04/11/22 08:38 Dose: 2 mg Senna/Docusate Sodium (Sennosides/Docusate Sodium Tablet) 1 tab PO BEDTIME PRN PRN Reason: Constipation Trazodone HCl (Trazodone Hcl 50 Mg Tablet) 50 mg PO BEDTIME PRN PRN Reason: Insomnia Last Admin: 04/11/22 00:48 Dose: 50 mg Trolamine Salicylate (Trolamine Salicylate 10 % Cream 85 Gm Tube) 1 appl TOPICAL BID PRN PRN Reason: Pain, Mild (Pain Scale 1-3) Last Admin: 04/10/22 20:25 Dose: 1 appl Vitamin D (Cholecalciferol (Vitamin D3) 10 Mcg Tablet) 10 mcg PO DAILY [facility] Last Admin: 04/11/22 08:36 Dose: 10 mcg Allergies Allergies Allergy/AdvReac Type Severity Reaction Status Date / Time aspirin Allergy Unknown Verified 03/26/22 20:21 ciprofloxacin [From Cipro] Allergy Gastrointestinal Verified 03/26/22 20:21 Upset ibuprofen Allergy Unknown Verified 03/26/22 20:21 Latex, Natural Rubber Allergy Hives Verified 03/26/22 20:21 NSAIDS (Non-Steroidal Allergy Unknown Verified 03/26/22 20:21 Anti-Inflamma omeprazole [From Prilosec] Allergy Unknown Verified 03/26/22 20:22 ondansetron [From Zofran] Allergy Unknown Verified 03/26/22 20:22 Penicillins Allergy Unknown Verified 03/26/22 20:21 Sulfa (Sulfonamide Allergy Gastrointestinal Verified 03/26/22 20:21 Antibiotics) Upset Assessment & Plan Assessment & Plan (1) Schizoaffective disorder, bipolar type: Status: Acute Code(s): F25.0 - Schizoaffective disorder, bipolar type Plan Ms. Pollock is a 76 year-old woman with hx of schizoaffective disorder brought [facility] due to increase agitation, aggression towards staff there which appears to be prompted by underlying paranoia. Pt presents as dysphoric, labile, anxious. We discussed risks, benefits and alternative treatment options. More collateral information from her OP providers may be required. Pt currently on 2 antipsychotics, perphenazine and risperidone. Depakote was added while in ED- currently 250mg po TID- will check levels. Added clonazepam for anxiety. Pt has eaton- please obtain copy PLAN 1. Admit to S1, CV, 15 minutes checks for safety 2. continue current medications, clonazepam added, 3. OBtain collateral information 4. Aftercare planning. Obsess and plan for 04/09/2022 Patient seen in psychiatric follow-up. Patient anxious dysphoric labile. Some improved ability for from prior to admission Some suspiciousness Assessment and plan for 04/10/2022 Patient seen case reviewed with treatment team. Patient continues to complain of pain frequently tearful. Question was on Ultram previously what is reportedly allergic to aspirin and nonsteroidals Tylenol not effective for pain would consider lidocaine patch or Ultram. X-rays of ankle and hip and pelvis ordered. Old injury to ankle with some mild edema patient appears depressed irritable she is on to antipsychotics at relatively high doses unclear benefit. Reported history of schizoaffective disorder might consider antidepressant or antipsychotic agent for bipolar depression I spent __20____ minutes with the patient and/or on the patient floor today, greater than?50% of which was spent counseling/coordinating care. Reason for contiued inpatient stay Substantial Risk for: inability to function, rapid decompensation and med/psych decompensation
[2022-04-11 18:00] VITALS: BP 155/76; PULSE 101; TEMP 36.1; O2SAT 97
[2022-04-11] MEDS: Divalproex Sodium Sprinkles 125 MG CAP.DR.SPR 1000 MG PO (20:30)
[2022-04-11] MEDS: Atorvastatin Calcium 20 MG TABLET PO (20:31)
[2022-04-11] MEDS: Perphenazine 8 MG TABLET 16 MG PO (20:31)
[2022-04-11] MEDS: Docusate Sodium 100 MG CAPSULE 200 MG PO (20:31)
[2022-04-11] MEDS: risperiDONE 3 MG TABLET 6 MG PO (20:31)
[2022-04-11] MEDS: Nystatin Powder 15 GM BOTTLE 1 APPL TOPICAL (21:41)
[2022-04-12] MEDS: traZODone HCL 50 MG TABLET PO (02:25)
[2022-04-12] MEDS: Trolamine Salicylate 10 % Cream 85 GM TUBE 1 APPL TOPICAL (02:26)
[2022-04-12] MEDS: Levothyroxine Sodium 125 MCG TABLET PO (06:02)
[2022-04-12 07:30] VITALS: BP 113/60; PULSE 86; RESP 15; TEMP 36.2; O2SAT 94
[2022-04-12] MEDS: Metoprolol Tartrate 50 MG TABLET PO ×2 (08:25→21:00)
[2022-04-12] MEDS: risperiDONE 2 MG TABLET PO (08:26)
[2022-04-12] MEDS: Apixaban 5 MG TABLET PO ×2 (08:26→21:00)
[2022-04-12] MEDS: dilTIAZem HCL CD 120 MG CAP.ER.DEG PO (08:26)
[2022-04-12] MEDS: Fenofibrate 160 MG TABLET PO (08:26)
[2022-04-12] MEDS: Digoxin 0.125 MG TABLET PO (08:26)
[2022-04-12] MEDS: Perphenazine 8 MG TABLET PO (08:26)
[2022-04-12] MEDS: metFORMIN HCl 500 MG TABLET PO ×2 (08:26→15:59)
[2022-04-12] MEDS: Cholecalciferol (Vitamin D3) 10 MCG TABLET PO (08:27)
--- NOTE | 2022-04-12 15:37 | P.PNPSI_ITS ---
Subjective Subjective Date of Service: 04/12/22 Reason For Visit: Schizoaffective Disorder Subjective Notes: Conditional Voluntary Interim History: the nursing staff reported the patient shows the same behavior, crying whenever she needs her needs to be med but easily redirectable. She is little less restless in the morning and more in the evening. Today the nursing staff reported that yesterday patient triggered her and she was unable to deescalate. On interview the patient denies new symptoms. Mental Status Exam Mental Status Exam Patient Appearance: Appropriate Patient Orientation: Person Level of Consciousness: Awake Patient Behavior: Guarded Mood Description: Withdrawn Affect Description: Calm Patient Cognition Impaired: Yes Ability to Follow Directions: Fair Speech Pattern: Clear Hallucinations: None Delusions: Paranoid Ideation Thought Process: Distracted Thought Content: positive for Poverty of Content and positive for Thought Blocking Judgement: Fair Diagnostics Vital Signs (24Hr): Vital Signs - 24 hr 04/11/22 18:00 04/12/22 07:30 Temperature 96.9 F 97.1 F Pulse Rate 101 H 86 Respiratory Rate 15 Blood Pressure 155/76 H 113/60 Pulse Oximetry 97 94 Oxygen Delivery Method Room Air Room Air BMI result Body Mass Index 31.1 Labs Results: 04/01/22 09:38 04/08/22 07:45 Imaging Radiology Impressions: ITS Impressions Ankle X-Ray 04/10/22 14:59 IMPRESSION: Changes relating to surgical fixation of a lateral malleolus fracture with lateral fixation plate and screws. There is questionable small amount of lucency about the 2 most distal screws, uncertain if this is artifactual. Comparison radiographs are unavailable at this time. There is mild soft tissue edema overlying the lateral malleolus and there is no acute fracture identified. Hip/Pelvis X-Ray 04/10/22 14:59 IMPRESSION: Unremarkable AP pelvis and right hip. Medications Medications Current Medications Acetaminophen (Acetaminophen 325 Mg Tablet) 650 mg PO Q6H PRN PRN Reason: Headache/Pain Mild Scale (1-3) Last Admin: 04/11/22 21:42 Dose: 650 mg Al Hydroxide/Mg Hydroxide (Magnesium Hydrox/Alum Hydrox 30 Ml Oral.Susp) 30 ml PO Q6H PRN PRN Reason: Heartburn/Nausea Last Admin: 04/05/22 02:58 Dose: 30 ml Apixaban (Apixaban 5 Mg Tablet) 5 mg PO BID [facility] Last Admin: 04/12/22 08:26 Dose: 5 mg Artificial Tears (Artificial Tears 15 Ml Drops) 1 drop EYE-BOTH Q4H PRN PRN Reason: Dry Eyes Last Admin: 03/27/22 21:19 Dose: 1 drop Atorvastatin Calcium (Atorvastatin Calcium 20 Mg Tablet) 20 mg PO BEDTIME [facility] Last Admin: 04/11/22 20:31 Dose: 20 mg Bisacodyl (Bisacodyl 10 Mg Supp.Rect) 10 mg NM DAILY PRN PRN Reason: Constipation Bismuth Subsalicylate (Bismuth Subsalicylate 262 Mg Tablet) 524 mg PO QID PRN PRN Reason: Indigestion Last Admin: 04/10/22 12:32 Dose: 524 mg Digoxin (Digoxin 0.125 Mg Tablet) 0.125 mg PO DAILY [facility] Last Admin: 04/12/22 08:26 Dose: 0.125 mg Diltiazem HCl (Diltiazem Hcl Cd 120 Mg Cap.Er.Deg) 120 mg PO DAILY [facility]; Pro tocol Last Admin: 04/12/22 08:26 Dose: 120 mg Divalproex Sodium (Divalproex Sodium Sprinkles 125 Mg Cap.Dr.Spr) 1,000 mg PO BEDTIME [facility] Last Admin: 04/11/22 20:30 Dose: 1,000 mg Docusate Sodium (Docusate Sodium 100 Mg Capsule) 200 mg PO BEDTIME [facility] Last Admin: 04/11/22 20:31 Dose: 200 mg Fenofibrate (Fenofibrate 160 Mg Tablet) 160 mg PO DAILY [facility] Last Admin: 04/12/22 08:26 Dose: 160 mg Levothyroxine Sodium (Levothyroxine Sodium 125 Mcg Tablet) 125 mcg PO DAILY@0600 [facility] Last Admin: 04/12/22 06:02 Dose: 125 mcg Magnesium Hydroxide (Milk Of Magnesia 30 Ml Oral.Susp) 30 ml PO DAILY PRN PRN Reason: Constipation Metformin HCl (Metformin Hcl 500 Mg Tablet) 500 mg PO BIDWM [facility] Last Admin: 04/12/22 08:26 Dose: 500 mg Metoprolol Tartrate (Metoprolol Tartrate 50 Mg Tablet) 50 mg PO BID [facility]; Protocol Last Admin: 04/12/22 08:25 Dose: 50 mg Nystatin (Nystatin Powder 15 Gm Bottle) 1 appl TOPICAL BID [facility]; Protocol Last Admin: 04/12/22 08:44 Dose: Not Given Perphenazine (Perphenazine 8 Mg Tablet) 8 mg PO DAILY [facility] Last Admin: 04/12/22 08:26 Dose: 8 mg Perphenazine (Perphenazine 8 Mg Tablet) 16 mg PO BEDTIME [facility] Last Admin: 04/11/22 20:31 Dose: 16 mg Risperidone (Risperidone 3 Mg Tablet) 6 mg PO BEDTIME [facility] Last Admin: 04/11/22 20:31 Dose: 6 mg Risperidone (Risperidone 2 Mg Tablet) 2 mg PO DAILY [facility] Last Admin: 04/12/22 08:26 Dose: 2 mg Senna/Docusate Sodium (Sennosides/Docusate Sodium Tablet) 1 tab PO BEDTIME PRN PRN Reason: Constipation Trazodone HCl (Trazodone Hcl 50 Mg Tablet) 50 mg PO BEDTIME PRN PRN Reason: Insomnia Last Admin: 04/12/22 02:25 Dose: 50 mg Trolamine Salicylate (Trolamine Salicylate 10 % Cream 85 Gm Tube) 1 appl TOPICAL BID PRN PRN Reason: Pain, Mild (Pain Scale 1-3) Last Admin: 04/12/22 02:26 Dose: 1 appl Vitamin D (Cholecalciferol (Vitamin D3) 10 Mcg Tablet) 10 mcg PO DAILY [facility] Last Admin: 04/12/22 08:27 Dose: 10 mcg Allergies Allergies Allergy/AdvReac Type Severity Reaction Status Date / Time aspirin Allergy Unknown Verified 03/26/22 20:21 ciprofloxacin [From Cipro] Allergy Gastrointestinal Verified 03/26/22 20:21 Upset ibuprofen Allergy Unknown Verified 03/26/22 20:21 Latex, Natural Rubber Allergy Hives Verified 03/26/22 20:21 NSAIDS (Non-Steroidal Allergy Unknown Verified 03/26/22 20:21 Anti-Inflamma omeprazole [From Prilosec] Allergy Unknown Verified 03/26/22 20:22 ondansetron [From Zofran] Allergy Unknown Verified 03/26/22 20:22 Penicillins Allergy Unknown Verified 03/26/22 20:21 Sulfa (Sulfonamide Allergy Gastrointestinal Verified 03/26/22 20:21 Antibiotics) Upset Assessment & Plan Assessment & Plan (1) Schizoaffective disorder, bipolar type: Status: Acute Code(s): F25.0 - Schizoaffective disorder, bipolar type Plan Ms. Pollock is a 76 year-old woman with hx of schizoaffective disorder brought [facility] due to increase agitation, aggression towards staff there which appears to be prompted by underlying paranoia. Pt presents as dysphoric, labile, anxious. We discussed risks, benefits and alternative treatment options. More collateral information from her OP providers may be required. Pt currently on 2 antipsychotics, perphenazine and risperidone. Depakote was added while in ED- currently 250mg po TID- will check levels. Added clonazepam for anxiety. Pt has eaton- please obtain copy PLAN 1. Admit to S1, CV, 15 minutes checks for safety 2. continue current medications, clonazepam added, 3. OBtain collateral information 4. Aftercare planning. I spent ___20___ minutes with the patient and/or on the patient floor today, gre ater than?50% of which was spent counseling/coordinating care. Reason for contiued inpatient stay Substantial Risk for: inability to function, rapid decompensation and med/psych decompensation
[2022-04-12 20:15] VITALS: BP 122/60; PULSE 89; RESP 16; TEMP 36.4; O2SAT 95
[2022-04-12] MEDS: Docusate Sodium 100 MG CAPSULE 200 MG PO (20:59)
[2022-04-12] MEDS: Perphenazine 8 MG TABLET 16 MG PO (20:59)
[2022-04-12] MEDS: Divalproex Sodium Sprinkles 125 MG CAP.DR.SPR 1000 MG PO (21:00)
[2022-04-12] MEDS: risperiDONE 3 MG TABLET 6 MG PO (21:00)
[2022-04-12] MEDS: Atorvastatin Calcium 20 MG TABLET PO (21:00)
[2022-04-13] MEDS: Levothyroxine Sodium 125 MCG TABLET PO (06:33)
[2022-04-13] MEDS: Acetaminophen 325 MG TABLET 650 MG PO (06:51)
[2022-04-13 07:30] VITALS: BP 114/60; PULSE 83; RESP 16; TEMP 36.2; O2SAT 94
[2022-04-13] MEDS: Digoxin 0.125 MG TABLET PO (08:16)
[2022-04-13] MEDS: Apixaban 5 MG TABLET PO ×2 (08:17→20:00)
[2022-04-13] MEDS: Cholecalciferol (Vitamin D3) 10 MCG TABLET PO (08:17)
[2022-04-13] MEDS: metFORMIN HCl 500 MG TABLET PO ×2 (08:17→16:55)
[2022-04-13] MEDS: Metoprolol Tartrate 50 MG TABLET PO ×2 (08:17→19:59)
[2022-04-13] MEDS: risperiDONE 2 MG TABLET PO (08:17)
[2022-04-13] MEDS: dilTIAZem HCL CD 120 MG CAP.ER.DEG PO (08:18)
[2022-04-13] MEDS: Fenofibrate 160 MG TABLET PO (08:18)
[2022-04-13] MEDS: Perphenazine 8 MG TABLET PO (08:19)
[2022-04-13 12:37] LABS: COVID-19 Test Negative (Negative)
--- NOTE | 2022-04-13 14:57 | P.PNPSI_ITS ---
Subjective Subjective Date of Service: 04/13/22 Reason For Visit: Schizoaffective Disorder Subjective Notes: Conditional Voluntary Interim History: The staff reported the patient now is open to [facility]. She needs to talk with the guardian. On interview, the patient looks defeated, she does not like to going back to her [facility] but she will accepted. Mental Status Exam Mental Status Exam Patient Appearance: Appropriate Patient Orientation: Person Level of Consciousness: Awake and Alert Patient Behavior: Cooperative Mood Description: Withdrawn and Depressed Affect Description: Constricted Patient Cognition Impaired: Yes Ability to Follow Directions: Good Speech Pattern: Clear Hallucinations: None Delusions: Not Present Thought Process: Distracted Thought Content: positive for Circumstantial Judgement: Fair Diagnostics Vital Signs (24Hr): Vital Signs - 24 hr 04/12/22 20:15 04/13/22 07:30 Temperature 97.5 F 97.1 F Pulse Rate 89 83 Respiratory Rate 16 16 Blood Pressure 122/60 114/60 Pulse Oximetry 95 94 Oxygen Delivery Method Room Air Room Air BMI result Body Mass Index 31.1 Labs Results: 04/01/22 09:38 04/08/22 07:45 Labs: Laboratory Results - last 48 hr 04/13/22 12:10 COVID-19 ([facility]) Negative COVID-19 Clin Com See Note Imaging Radiology Impressions: ITS Impressions Ankle X-Ray 04/10/22 14:59 IMPRESSION: Changes relating to surgical fixation of a lateral malleolus fracture with lateral fixation plate and screws. There is questionable small amount of lucency about the 2 most distal screws, uncertain if this is artifactual. Comparison radiographs are unavailable at this time. There is mild soft tissue edema overlying the lateral malleolus and there is no acute fracture identified. Hip/Pelvis X-Ray 04/10/22 14:59 IMPRESSION: Unremarkable AP pelvis and right hip. Medications Medications Current Medications Acetaminophen (Acetaminophen 325 Mg Tablet) 650 mg PO Q6H PRN PRN Reason: Headache/Pain Mild Scale (1-3) Last Admin: 04/13/22 06:51 Dose: 650 mg Al Hydroxide/Mg Hydroxide (Magnesium Hydrox/Alum Hydrox 30 Ml Oral.Susp) 30 ml PO Q6H PRN PRN Reason: Heartburn/Nausea Last Admin: 04/05/22 02:58 Dose: 30 ml Apixaban (Apixaban 5 Mg Tablet) 5 mg PO BID [facility] Last Admin: 04/13/22 08:17 Dose: 5 mg Artificial Tears (Artificial Tears 15 Ml Drops) 1 drop EYE-BOTH Q4H PRN PRN Reason: Dry Eyes Last Admin: 03/27/22 21:19 Dose: 1 drop Atorvastatin Calcium (Atorvastatin Calcium 20 Mg Tablet) 20 mg PO BEDTIME [facility] Last Admin: 04/12/22 21:00 Dose: 20 mg Bisacodyl (Bisacodyl 10 Mg Supp.Rect) 10 mg MA DAILY PRN PRN Reason: Constipation Bismuth Subsalicylate (Bismuth Subsalicylate 262 Mg Tablet) 524 mg PO QID PRN PRN Reason: Indigestion Last Admin: 04/10/22 12:32 Dose: 524 mg Digoxin (Digoxin 0.125 Mg Tablet) 0.125 mg PO DAILY [facility] Last Admin: 04/13/22 08:16 Dose: 0.125 mg Diltiazem HCl (Diltiazem Hcl Cd 120 Mg Cap.Er.Deg) 120 mg PO DAILY [facility]; Protocol Last Admin: 04/13/22 08:18 Dose: 120 mg Divalproex Sodium (Divalproex Sodium Sprinkles 125 Mg Cap.Dr.Spr) 1,000 mg PO BEDTIME [facility] Last Admin: 04/12/22 21:00 Dose: 1,000 mg Docusate Sodium (Docusate Sodium 100 Mg Capsule) 200 mg PO BEDTIME [facility] Last Admin: 04/12/22 20:59 Dose: 200 mg Fenofibrate (Fenofibrate 160 Mg Tablet) 160 mg PO DAILY [facility] Last Admin: 04/13/22 08:18 Dose: 160 mg Levothyroxine Sodium (Levothyroxine Sodium 125 Mcg Tablet) 125 mcg PO DAILY@0600 [facility] Last Admin: 04/13/22 06:33 Dose: 125 mcg Magnesium Hydroxide (Milk Of Magnesia 30 Ml Oral.Susp) 30 ml PO DAILY PRN PRN Reason: Constipation Metformin HCl (Metformin Hcl 500 Mg Tablet) 500 mg PO BIDWM [facility] Last Admin: 04/13/22 08:17 Dose: 500 mg Metoprolol Tartrate (Metoprolol Tartrate 50 Mg Tablet) 50 mg PO BID [facility]; Protocol Last Admin: 04/13/22 08:17 Dose: 50 mg Nystatin (Nystatin Powder 15 Gm Bottle) 1 appl TOPICAL BID [facility]; Protocol Last Admin: 04/13/22 12:34 Dose: Not Given Perphenazine (Perphenazine 8 Mg Tablet) 8 mg PO DAILY [facility] Last Admin: 04/13/22 08:19 Dose: 8 mg Perphenazine (Perphenazine 8 Mg Tablet) 16 mg PO BEDTIME [facility] Last Admin: 04/12/22 20:59 Dose: 16 mg Risperidone (Risperidone 3 Mg Tablet) 6 mg PO BEDTIME [facility] Last Admin: 04/12/22 21:00 Dose: 6 mg Risperidone (Risperidone 2 Mg Tablet) 2 mg PO DAILY [facility] Last Admin: 04/13/22 08:17 Dose: 2 mg Senna/Docusate Sodium (Sennosides/Docusate Sodium Tablet) 1 tab PO BEDTIME PRN PRN Reason: Constipation Trazodone HCl (Trazodone Hcl 50 Mg Tablet) 50 mg PO BEDTIME PRN PRN Reason: Insomnia Last Admin: 04/12/22 02:25 Dose: 50 mg Trolamine Salicylate (Trolamine Salicylate 10 % Cream 85 Gm Tube) 1 appl TOPICAL BID PRN PRN Reason: Pain, Mild (Pain Scale 1-3) Last Admin: 04/12/22 02:26 Dose: 1 appl Vitamin D (Cholecalciferol (Vitamin D3) 10 Mcg Tablet) 10 mcg PO DAILY [facility] Last Admin: 04/13/22 08:17 Dose: 10 mcg Allergies Allergies Allergy/AdvReac Type Severity Reaction Status Date / Time aspirin Allergy Unknown Verified 03/26/22 20:21 ciprofloxacin [From Cipro] Allergy Gastrointestinal Verified 03/26/22 20:21 Upset ibuprofen Allergy Unknown Verified 03/26/22 20:21 Latex, Natural Rubber Allergy Hives Verified 03/26/22 20:21 NSAIDS (Non-Steroidal Allergy Unknown Verified 03/26/22 20:21 Anti-Inflamma omeprazole [From Prilosec] Allergy Unknown Verified 03/26/22 20:22 ondansetron [From Zofran] Allergy Unknown Verified 03/26/22 20:22 Penicillins Allergy Unknown Verified 03/26/22 20:21 Sulfa (Sulfonamide Allergy Gastrointestinal Verified 03/26/22 20:21 Antibiotics) Upset Assessment & Plan Assessment & Plan (1) Schizoaffective disorder, bipolar type: Status: Acute Code(s): F25.0 - Schizoaffective disorder, bipolar type Plan Ms. Pollock is a 76 year-old woman with hx of schiz[facility]ffective [facility] due to increase agitation, aggression towards staff there which appears to be prompted by underlying paranoia. Pt presents as dysphoric, labile, anxious. We discussed risks, benefits and alternative treatment options. More collateral information from her OP providers may be required. Pt currently on 2 antipsychotics, perphenazine and risperidone. Depakote was added while in ED- currently 250mg po TID- will check levels. Added clonazepam for anxiety. Pt has eaton- please obtain copy PLAN 1. Admit to S1, CV, 15 minutes checks for safety 2. continue current medications, clonazepam added, 3. OBtain collateral information 4. Aftercare planning. I spent ___20___ minutes with the patient and/or on the patient floor today, greater than?50% of which was spent counseling/coordinating care. Informed Consent: understands Reason for contiued inpatient stay Substantial Risk for: inability to function, rapid decompensation and med/psych decompensation
[2022-04-13 17:15] VITALS: BP 128/63; PULSE 89; RESP 14; TEMP 36.2; O2SAT 95
[2022-04-13] MEDS: Atorvastatin Calcium 20 MG TABLET PO (19:58)
[2022-04-13] MEDS: Divalproex Sodium ER 500 MG TAB.ER.24H 1000 MG PO (19:59)
[2022-04-13] MEDS: Perphenazine 8 MG TABLET 16 MG PO (19:59)
[2022-04-13] MEDS: Docusate Sodium 100 MG CAPSULE 200 MG PO (20:00)
[2022-04-13] MEDS: risperiDONE 3 MG TABLET 6 MG PO (20:37)
[2022-04-14] MEDS: Acetaminophen 325 MG TABLET 650 MG PO ×2 (01:17→12:46)
[2022-04-14] MEDS: Levothyroxine Sodium 125 MCG TABLET PO (06:35)
[2022-04-14] MEDS: Fenofibrate 160 MG TABLET PO (09:21)
[2022-04-14] MEDS: Metoprolol Tartrate 50 MG TABLET PO (09:21)
[2022-04-14] MEDS: metFORMIN HCl 500 MG TABLET PO (09:21)
[2022-04-14] MEDS: dilTIAZem HCL CD 120 MG CAP.ER.DEG PO (09:21)
[2022-04-14] MEDS: risperiDONE 2 MG TABLET PO (09:21)
[2022-04-14] MEDS: Perphenazine 8 MG TABLET PO (09:21)
[2022-04-14] MEDS: Digoxin 0.125 MG TABLET PO (09:22)
[2022-04-14] MEDS: Cholecalciferol (Vitamin D3) 10 MCG TABLET PO (09:22)
[2022-04-14] MEDS: Apixaban 5 MG TABLET PO (09:22)
[2022-04-14] MEDS: Nystatin Powder 15 GM BOTTLE 1 APPL TOPICAL (09:34)
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
[2022-04-14] MEDS: LORazepam 1 MG TABLET 2 MG PO (09:53)
--- NOTE | 2022-04-14 12:15 | PC.NURSE ---
Pt. is A&Ox4. Took all of her morning medications. Pt. ambulates with a walker and is steady on her feet. Pt. is aware of discharge, reports readiness. Denies SI/HI. She was given Ativan 2mg to ease anxiety about transportation back to SNF via ambulance. Pt. will receive follow up care at SNF from PCP. Pt. denied any additional questions/concerns.
== END 2022-04-14 12:45 | disposition skilled nursing facility (03) | DRG 885 ==
PROVIDERS: Psychiatry & Neurology Psychiatry; Social Worker; Admitting Provider Psychiatry & Neurology Psychiatry; Visit Provider Psychiatry & Neurology Psychiatry
DX: F25.0 Schizoaffective disorder, bipolar type (principal); K21.9 Gastro-esophageal reflux disease without esophagitis; I48.91 Unspecified atrial fibrillation; I10 Essential (primary) hypertension; E03.9 Hypothyroidism, unspecified; E11.9 Type 2 diabetes mellitus without complications; Z20.822 Contact with and (suspected) exposure to COVID-19; Z91.040 Latex allergy status; Z88.0 Allergy status to penicillin; Z88.2 Allergy status to sulfonamides; Z88.8 Allergy status to other drugs, medicaments and biological substances; Z79.01 Long term (current) use of anticoagulants; Z79.84 Long term (current) use of oral hypoglycemic drugs; Z79.890 Hormone replacement therapy; Z79.899 Other long term (current) drug therapy
CPT/HCPCS: 36415; 73502; 73600; 80048; 80053; 80061; 80076; 80164; 82140; 82565; 82607; 82746; 82947; 83036; 83735; 84439; 84443; 85025; 87635